=== PATIENT | male | born 1965 | race Caucasian/White ===

== ENCOUNTER 2020-12-21 10:49 | Emergency (ER) | payer OTHER, SELFPAY ==
[2020-12-21 11:00] VITALS: BP 184/101; PULSE 73; RESP 20; TEMP 37.1; O2SAT 98
--- NOTE | 2020-12-21 11:12 | ED.EYEPROB ---
HPI - Eye Problem General Chief complaint: Eye Problems Stated complaint: something in eye Time Seen by Provider: 12/21/20 11:12 History of Present Illness HPI Narrative: 55-year-old male patient is here with chief complaints of irritation to the left eye that started at 3:00 a.m. this morning. 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 Patient had similar episode to the right eye past Monday. He states that he has the photophobia but no loss of vision. He denies any drainage from the eye. He denies any pain to the eyes. Patient does wear protective glasses while working but does not wear vision correcting glasses. Patient offers no other symptoms regarding his current eye complaint and or any recent sore throat or history of environmental allergies. Related Data Allergies Allergy/AdvReac Type Severity Reaction Status Date / Time No Known Allergies Allergy Verified 12/21/20 11:13 Review of Systems Review of Systems: All systems reviewed & are unremarkable except as noted in HPI and below Exam Narrative: Exam Narrative: Patient is alert and appears in no acute distress. Vital signs are noted to be stable. HEENT ; pupils are equal and reactive bilaterally. There is no significant photophobia noted in the examination room. Patient does have marked conjunctival injection of the left eye and the right conjunctival sac seems to be normal. EOMs are not intact. Lid margins appeared normal. No foreign bodies noted in the eyes. Fluorescein stain is positive for corneal abrasion of the left cornea between 12 to 1 o'clock position. No other uptakes are noted. Anterior chamber is clear. Visual acuity is normal. The rest of the HEENT examination is unremarkable. No respiratory distress is noted. Heart tones are regular. Rest of physical examination is normal. Course Course Emergency Course: Patient is aware of the fluorescein uptake and discharge plans. Will put the patient on an antibiotic eyedrops and he is advised to avoid bright light and wear protective glasses while working. Discharge Plan Discharge Clinical Impression: Corneal abrasion Patient Disposition: Home, Self-Care Condition: Stable Instructions: Antibiotic Form, Corneal Abrasion (ED) Additional Instructions: Avoid bright lights and eye strain use the medication as prescribed. Flush your eyes with eye stream given here before instilling the antibiotic drops stay well hydrated. Take Tylenol or ibuprofen as needed for discomfort. Follow-up with your primary care physician in 2-3 days or sooner if worse. return here as needed. Prescriptions: New tobramycin 0.3 % drops 2 drp EACH EYE Q4H Qty: 5 RF: 0 Follow-up/Referrals: UNKNOWN,DOCTOR [Primary Care Provider] - Time of Disposition: 11:35
--- NOTE | 2020-12-21 11:25 | PC.NURSE ---
report to PATRICK Cook
[2020-12-21] MEDS: TETRACAINE HCL 0.5% OPHTH SOLN 4 ML BTL 1 DROP EACH EYE (11:28)
[2020-12-21] MEDS: FLUORESCEIN SOD 1 MG/STRIP EACH EYE (11:29)
[2020-12-21] MEDS: DACRIOSE EYE IRRIGATION 118 ML BOTTLE 10 ML EACH EYE (11:29)
[2020-12-21 11:37] VITALS: PULSE 71; RESP 15; TEMP 36.6; O2SAT 99
== END 2020-12-21 11:38 | disposition home or self-care (01) ==
PROVIDERS: Emergency Provider Emergency Medicine
DX: S05.02XA Injury of conjunctiva and corneal abrasion without foreign body, left eye, initial encounter (principal)
CPT/HCPCS: 99283; A9270

== ENCOUNTER 2024-12-23 10:34 | Outpatient (CLI) | payer BC, SELFPAY ==
--- NOTE | ~2024-12-23 | XR_ITS ---
EXAM/ PROCEDURE: XR lumbar spine 2-3V - 12/23/2024 10:45 CDT HISTORY: 59 years old Male with M54.9 - Dorsalgia, unspecified COMPARISON: None available TECHNIQUE: Three view(s) FINDINGS/ IMPRESSION: There are no fractures or dislocations.Intervertebral disc spaces are within normal limits. Reviewed, dictated and finalized at location A.
--- NOTE | ~2024-12-23 | XR_ITS ---
XR hip BI wo pelvis 12/23/2024 11:05 Indication: Hip pain Procedure: 2 views each hip Comparison: 10/26/2015 Findings: Mild bilateral symmetric osteoarthritis of the hips. No fracture, subluxation or dislocatio n. Sacral foramen are symmetric. Pelvic rings are unremarkable. No soft tissue abnormality. Impression: 1: Mild bilateral symmetric osteoarthritis of the hips. Reviewed, dictated and finalized at location A. Impression: 1: Mild bilateral symmetric osteoarthritis of the hips.
--- OUTSIDE RECORDS SUMMARY | 2024-12-23 10:46 | XMS_ITS | Encounter Summary ---
Author Organization [facility] - [facility] Address [address] [place] [address] Care Team Providers Care Host Name Role Phone Jian Worthington MD Primary Care Provider [phone] Encounter Details Date Type Department Care Team (Late st Contact Info) Description 04/22/2020 Community Orders [facility] EPICCARE LINK Jian Worthington MD [address] [place] [address] Social History Tobacco Use Types Packs/Day Years Used Date Smoking Tobacco: Never Assessed Sex and Gender Information Value Date Recorded Sex Assigned at Not on file Legal Sex Male 7:41 AM CDT Gender Identity Not on file Sexual Orientation Not on file documented as of this encounter Plan of Treatment Upcoming Encounters Date Type Department Care Team (Late st Contact Info) Description 01/21/2025 8:45 AM CDT Office Visit [facility] [place] [address] Ubaldo Marinelli MD [address] [address] documented as of this encounter Visit Diagnoses Diagnosis Malignant melanoma (CMS/HCC HHS/HCC)- Primary Melanoma of skin, site unspecified documented in this encounter Care Teams Host Relationship Specialty Start Date End Date Jian Worthington MD [address] [place] [address] PCP - General HEMATOLOGY/ONCOLOGY 03/22/19 documented as of this encounter
--- OUTSIDE RECORDS SUMMARY | 2024-12-23 10:46 | XMS_ITS | Clinical Summary ---
Author Organization [facility] Address [address] [place] [address] Care Team Providers Care Manager Business Name Role Phone Jian Worthington MD Primary Care Provider [phone] Encounters Date Type Department Care Team Description 12/17[facility]2024 [facility] [address] [place] [address] Ubaldo Marinelli MD Appointment Request 12/17/2024 Telephone [facility] [place] [facility] [address] [place] [address] Ubaldo Marinelli MD Concerns from Last 3 Months Social History Tobacco Use Types Packs/Day Years Used Date Smoking Tobacco: Never Assessed Sex and Gender Information Value Date Recorded Sex Assigned at Not on file Legal Sex Male 7:41 AM CDT Gender Identity Not on file Sexual Orientation Not on file Plan of Treatment Upcoming Encounters Date Type Department Care Team ([facility] st Contact Info) Description 01/21/2025 8:45 AM CDT Office Visit [facility] [place] [address] Ubaldo Marinelli MD [address] [facility] [address] [place], [place] [phone] Health Maintenance Due Date Last Done Comments Colorectal Cancer Screening Colonoscopy (10 Years) 1967 Annual Physical 08/08/1970 Hepatitis C 08/08/1985 DTaP, Tdap and Td Vaccines ( 1 - Tdap) 08/08/1986 Hepatitis B Vaccines (1 of 3 - 19+ 3-dose series) 08/08/1986 Pneumococcal Vaccine: 50+ Ye ars (1 of 1 - PCV) 08/08/2017 Zoster Vaccines (1 of 2) 08/08/2017 COVID-19 Vaccine (1 - 2023-2 5 season) 2024 Meningococcal B Vaccine Aged Out No l onger eligible based on patient's age to complete this topic Meningococcal Vaccine Aged Out No edgar debbie eligible based on patient's age to complete this topic RSV Immunizations Under 20 Months Aged Out No longer eligible based on patient's age to complete this topic Insurance [facility] Care Teams Manager Business Relationship Specialty Start Date End Date Jian Worthington MD [address] [place], [place] [address] PCP - General HEMATOLOGY/ONCOLOGY 03/22/19
--- OUTSIDE RECORDS SUMMARY | 2024-12-23 10:46 | XMS_ITS | Encounter Summary ---
Author Organization [facility] - [facility] Address [address] [place] [address] Care Team Providers Care Client Director Name Role Phone Jian Worthington MD Primary Care Provider [phone] Encounter Details Date Type Department Care Team (Late st Contact Info) Description 02/13/[address] [facility] EPICCARE LINK Jian Worthington MD [address] [place] [address] Social History Tobacco Use Types [...] Description 01/21/2025 8:45 AM CDT Office Visit [facility] [place] [address] Ubaldo Marinelli MD [address] [address] documented as of this encounter Visit Diagnoses Diagnosis Malignant melanoma (CMS/HCC [facility]/HCC)- Primary Melanoma of skin, site unspecified documented in this encounter Care Teams Client Director Relationship Specialty Start Date End Date Jian Worthington MD [address] [place] [address] PCP - General HEMATOLOGY/ONCOLOGY 03/22/19 documented as of this encounter
[2024-12-23 10:49] LABS: Hematocrit 32.2 % (40.0-54.0); Hemoglobin 10.2 g/dL (14.0-18.0); Immature Granulocyte Percent A 0.3 % (0.0-0.0); Lymphocytes Absolute Auto 1.04 K/mm3 (1.10-4.50); Mean Corpuscular HGB Conc 31.7 g/dL (32-36); Mean Corpuscular Hemoglobin 26.8 pg (27.0-31.0); Mean Corpuscular Volume 84.5 fL (78.0-102.0); Nucleated Red Blood Cells Absolute Auto 0.00 K/mm3 (0.00-0.00); Nucleated Red Blood Cells Perc 0.0 % (0-0.0); Platelet Count Result 419 K/mm3 (150-420); Red Blood Count 3.81 M/mm3 (4.70-6.10); White Blood Count 7.0 K/mm3 (4.8-10.8)
[2024-12-23 10:52] LABS: Add Urine Microscopic? YES; Appearance Urine Clear (Clear); Glucose Urine UA Negative (Negative); Leukocyte Esterase Ur Negative LEU/UL (Negative); Nitrate Urine Negative (Negative); Specific Grav Ur 1.010 (1.010-1.020)
[2024-12-23 11:12] LABS: Hemoglobin A1C 5.7 % (<5.7)
[2024-12-23 11:28] LABS: Alanine Aminotransferase 31 U/L (6-50); Albumin Level 3.3 g/dL (3.5-5.1); Alkaline Phosphatase 92 U/L (38-126); Anion Gap 7 mmol/L (4-12); Aspartate Amino Transferase 27 U/L (17-59); Bilirubin,Total 0.7 mg/dL (0.2-1.3); Blood Urea Nitrogen 10 mg/dL (9-20); Calcium 8.4 mg/dL (8.4-10.2); Carbon Dioxide 23 mmol/L (22-30); Chloride 104 mmol/L (98-107); Cholesterol 143 mg/dL (0-200); Estimated Glomerular Filt Rate > 60; Glucose 107 mg/dL (65-110); HDL Direct 30 mg/dL; Lipase 21 U/L (23-300); Osmolality Calculated 277 mOsm/kg (285-295); Potassium 4.2 mmol/L (3.4-5.0); Sodium 134 mmol/L (137-145); Total Protein 6.3 g/dL (6.3-8.2); Triglycerides 56 mg/dL (<150)
[2024-12-23 11:59] LABS: Thyroid Stimulating Hormone Reflex 0.471 uIU/mL (0.465-4.68)
[2024-12-23 12:54] LABS: Iron 20 ug/dL (49-181)
[2024-12-23 13:03] LABS: Percent Iron Saturation 9 % (20-50)
[2024-12-23 13:32] LABS: Ferritin 590.00 ng/mL (11.1-264)
== END 2024-12-23 10:35 | disposition home or self-care (01) ==
LOC: CHSLAB 10:36
PROVIDERS: PCP Nurse Practitioner Family; Visit Provider Nurse Practitioner Family
DX: Z00.00 Encounter for general adult medical examination without abnormal findings (principal); R53.82 Chronic fatigue, unspecified; M54.9 Dorsalgia, unspecified; M16.0 Bilateral primary osteoarthritis of hip
CPT/HCPCS: 36415; 72100; 73521; 80053; 80061; 81001; 82306; 82728; 83036; 83540; 83550; 83690; 84443; 85025

== ENCOUNTER 2025-01-10 13:55 | Outpatient (CLI) | payer BC, SELFPAY ==
--- NOTE | ~2025-01-10 | CT_ITS ---
CLINICAL INDICATION: Abnormal weight loss and abdominal pain COMPARISON: None. TECHNIQUE: Multiple contiguous axial images of the abdomen and pelvis were performed following the ad ministration of with 100 mL Omnipaque-350 intravenous contrast The dose-length product (DLP) was 290.52 mGy-cm. Automated exposure control and iterative reconstruction technique were employed. FINDINGS/OBSERVATIONS: Visualized lower thorax: Bibasilar atelectasis. The remainder of the lung bases are clear The heart is of normal size, without pericardial effusion. Liver: Innumerable irregular foci of decreased attenuation within the liver, for which metastatic disease is suspected. The liver is enlarged measuring 21 cm in longitudinal dimension. Gallbladder and biliary system: The gallbladder is decompressed, limiting its evaluation. Pancreas: The entirety of the pancreas is heterogeneous in enhancement. No ductal dilatation is appreciated. The most striking area of abnormal enhancement is within the tail of the pancreas, its borders are il l-defined, and measures approximately 3.1 x 4.8 x 2.6 cm Spleen: The spleen enhances homogeneously and is not enlarged. Kidneys: The bilateral kidneys enhance symmetrically without hydronephrosis or renal calculi. Adrenal glands: Unremarkable. Gastrointestinal tract: Colonic diverticulosis without surrounding inflammatory change. Appendix: The air-filled appendix is of normal caliber (axial series, images 117 through 127) Vasculature: The superior mesenteric artery is preserved at its origin. The celiac axis is preserved at its origin, and becomes diminutive within the common hepatic artery. The portal vein is patent but surrounded by abnormal lymphadenopathy. Lymph nodes: Innumerable morphologically suspicious and pathologically enlarged lymph nodes within the upper abdom en and within the lesser sac. The largest lymph node is within the hepatic lymph node station measuring 2 cm in short axis dimensio n. Pelvic structures: The bladder is distended, and otherwise unremarkable. The prostate gland is not enlarged, but contains bulky calcifications.. Body wall and musculoskeletal: Age-appropriate degenerative disease within the lower thoracic and lumbosacral spine. No lytic or blastic lesions identified. IMPRESSION: Findings within the upper abdomen for which a primary pancreatic malignancy is suspected, possibly located within the tail. Innumerable lesions within the liver, amenable to percutaneous biopsy. No pancreatic ductal dilatation is appreciated. Innumerable pathologically enlarged and morphologically suspicious lymph nodes within the upper abdom en. Despite the extensive (likely) metastatic disease and upper abdominal lymphadenopathy, the vasculatur e within the upper abdomen appears preserved. Reviewed, dictated and finalized at location A. IMPRESSION: Findings within the upper abdomen for which a primary pancreatic ma lignancy is suspected, possibly located within the tail. Innumerable lesions within the liver, amenable to percutaneous biopsy. No pancreatic ductal dilatation is appreciated. Innumerable pathologically enlarged and morphologically suspicious lymph nodes within the upper abdomen. Despite the extensive (likely) metastatic disease and upper abdominal lymphaden opathy, the vasculature within the upper abdomen appears preserved.
--- OUTSIDE RECORDS SUMMARY | 2025-01-10 14:00 | XMS_ITS | Clinical Summary ---
Author Organization [facility] Address [address] [place] [address] Care Team Providers Care Student Services Dean Name Role Phone Jian Worthington MD Primary Care Provider [phone] Encounters Date Type Department Care Team Description 12/17/2024 [facility]phone [facility] [address] [place] [address] Ubaldo Marinelli MD Appointment Request 12/17/2024 Telephone [facility] [address] [place] [address] Ubaldo Marinelli MD Concerns from Last 3 Months Social History Tobacco Use Types Packs/Day Years Used Date Smoking Tobacco: Never Assessed Sex and Gender Information Value Date Recorded Sex Assigned at Not on file Legal Sex Male 7:41 AM CDT Gender Identity Not on file Sexual Orientation Not on file Plan of Treatment Upcoming Encounters Date Type Department Care Team ([facility] st Contact Info) Description 01/21/2025 8:45 AM CDT Office Visit [facility] [place] [address] Ubaldo Marinelli MD [address] [facility] [address] [place], [place] [address] Health Maintenance Due Date Last Done Comments [...] Insurance [facility] Care Teams Student Services Dean Relationship Specialty Start Date End Date Jian Worthington MD [address] [place], [place] [address] PCP - General HEMATOLOGY/ONCOLOGY 03/22/19
--- OUTSIDE RECORDS SUMMARY | 2025-01-10 14:00 | XMS_ITS | Encounter Summary ---
Author Organization [facility] Address [address] [place] [address] Care Team Providers Care Bath Mixer Name Role Phone Jian Worthington MD Primary Care Provider [phone] Encounter Details Date Type Department Care Team (Late st Contact Info) Description 04/22/2020 Community Orders [facility] EPICCARE LINK Jian Worthington MD [address] [place] [address] Social History Tobacco Use Types [...] Description 01/21/2025 8:45 AM CDT Office Visit [facility] [place] [address] Ubaldo Marinelli MD [address] [address] documented as of this encounter Visit Diagnoses Diagnosis Malignant melanoma (CMS/HCC HHS/HCC)- Primary Melanoma of skin, site unspecified documented in this encounter Care Teams Bath Mixer Relationship Specialty Start Date End Date Jian Worthington MD [address] [place] [address] PCP - General HEMATOLOGY/ONCOLOGY 03/22/19 documented as of this encounter
--- OUTSIDE RECORDS SUMMARY | 2025-01-10 14:00 | XMS_ITS | Encounter Summary ---
Author Organization [facility] Address [address] [place] [address] Care Team Providers Care Cone Winder Name Role Phone Jian Worthington MD Primary Care Provider [phone] Encounter Details Date Type Department Care Team (Late st Contact Info) Description 02/13/2019 Community Orders [facility] EPICCARE LINK Jian Worthington MD [address] [place] [address] Social History Tobacco Use Types [...] Description 01/21/2025 8:45 AM CDT Office Visit [facility] [place] [address] Ubaldo Marinelli MD [address] [address] documented as of this encounter Visit Diagnoses Diagnosis Malignant melanoma (CMS/HCC HHS/HCC)- Primary Melanoma of skin, site unspecified documented in this encounter Care Teams Cone Winder Relationship Specialty Start Date End Date Jian Worthington MD [address] [place] [address] PCP - General HEMATOLOGY/ONCOLOGY 03/22/19 documented as of this encounter
[2025-01-10 14:26] LABS: Hematocrit 32.6 % (40.0-54.0); Hemoglobin 9.8 g/dL (14.0-18.0); Immature Granulocyte Percent A 0.6 % (0.0-0.0); Immature Platelet Fraction Pct 1.6 % (1.0-7.0); Lymphocytes Absolute Auto 0.74 K/mm3 (1.10-4.50); Mean Corpuscular HGB Conc 30.1 g/dL (32-36); Mean Corpuscular Hemoglobin 24.9 pg (27.0-31.0); Mean Corpuscular Volume 83.0 fL (78.0-102.0); Nucleated Red Blood Cells Absolute Auto 0.00 K/mm3 (0.00-0.00); Nucleated Red Blood Cells Perc 0.0 % (0-0.0); Platelet Count Result 613 K/mm3 (150-420); Red Blood Count 3.93 M/mm3 (4.70-6.10); White Blood Count 8.2 K/mm3 (4.8-10.8)
[2025-01-10 14:41] VITALS: BP 132/79; PULSE 88; RESP 16; TEMP 36.4; O2SAT 97; BMI 23.4
[2025-01-10 14:41] LABS: Alanine Aminotransferase 46 U/L (6-50); Albumin Level 3.8 g/dL (3.5-5.1); Alkaline Phosphatase 136 U/L (38-126); Anion Gap 8 mmol/L (4-12); Aspartate Amino Transferase 32 U/L (17-59); Bilirubin,Total 0.8 mg/dL (0.2-1.3); Blood Urea Nitrogen 9 mg/dL (9-20); CRP > 9.0 mg/dL (<1.0); Calcium 9.2 mg/dL (8.4-10.2); Carbon Dioxide 32 mmol/L (22-30); Chloride 97 mmol/L (98-107); Estimated Glomerular Filt Rate > 60; Glucose 117 mg/dL (65-110); Lipase 20 U/L (23-300); Osmolality Calculated 283 mOsm/kg (285-295); Potassium 3.5 mmol/L (3.4-5.0); Sodium 137 mmol/L (137-145); Total Protein 7.9 g/dL (6.3-8.2)
[2025-01-10] MEDS: SODIUM CHLORIDE 0.9% IV 1,000 ML 500 ML IVPB (15:10)
--- NOTE | 2025-01-10 18:33 | PC.NURSE ---
01/10/2025 1720 Patient's IV fluids completed. Patient tolerated well. Patient transferred into wheel chair and taken to radiology for a CT of abd/pelvis. IV intact for use with CT. quality control lab techJaden, to remove after scan is completed and will discharge to home after.
[2025-01-10 19:11] LABS: Troponin I < 0.012 ng/mL (0.000-0.034)
== END 2025-01-10 13:56 | disposition home or self-care (01) ==
LOC: CHSLAB 13:58 → CHSTREATRM 14:12
PROVIDERS: PCP Nurse Practitioner Family; Visit Provider Nurse Practitioner Family
DX: E86.0 Dehydration (principal); R63.4 Abnormal weight loss; R10.9 Unspecified abdominal pain
CPT/HCPCS: 36415; 74177; 80053; 83690; 84484; 85025; 85055; 86140; 87040; 96360; 96361; J7030; Q9967

== ENCOUNTER 2025-01-10 20:34 | Emergency (ER) | payer BC, SELFPAY ==
[2025-01-10 20:36] VITALS: BP 116/80; PULSE 105; RESP 16; TEMP 37.2; O2SAT 99
--- OUTSIDE RECORDS SUMMARY | 2025-01-10 20:37 | XMS_ITS | Encounter Summary ---
Author Organization [facility] Address [address] [place] [address] Care Team Providers Care Mold Maker Apprentice Name Role Phone Jian Worthington MD Primary Care Provider [phone] Encounter Details Date Type Department Care Team (Late st Contact Info) Description 04/22/2020 Community Orders [facility] EPICCARE LINK Jian Worthington MD [address] [place] [address] Social History Tobacco Use Types [...] Description 01/21/2025 8:45 AM CDT Office Visit [facility] [place] [address] Ubaldo Marinelli MD [address] [address] documented as of this encounter Visit Diagnoses Diagnosis Malignant melanoma (CMS/HCC HHS/HCC)- Primary Melanoma of skin, site unspecified documented in this encounter Care Teams Mold Maker Apprentice Relationship Specialty Start Date End Date Jian Worthington MD [address] [place] [address] PCP - General HEMATOLOGY/ONCOLOGY 03/22/19 documented as of this encounter
--- OUTSIDE RECORDS SUMMARY | 2025-01-10 20:37 | XMS_ITS | Encounter Summary ---
Author Organization [facility] Address [address] [place] [address] Care Team Providers Care Sales Associate Key Holder Name Role Phone Jian Worthington MD Primary Care Provider [phone] Encounter Details Date Type Department Care Team (Late Contact Info) Description 01/10/2025 Orders Only [facility] [address] [place] [address] Ubaldo Marinelli MD [address] [place] [address] Social History Tobacco Use Types Packs/Day Years Used Date Smoking Tobacco: Never Assessed Sex and Gender Information Value Date Recorded Sex Assigned at Not on file Legal Sex Male 7:41 AM CDT Gender Identity Not on file Sexual Orientation Not on file documented as of this encounter Plan of Treatment Upcoming Encounters Date Type Department Care Team (Late Contact Info) Description 01/21/2025 8:45 AM CDT Office Visit [facility] [place] [address] Ubaldo Marinelli MD [address] [address] Scheduled Orders Name Type Priority Associated Diagnoses Orde r Schedule ECG 12 lead (HOSPITAL PERFORMED ONLY) EKG-NonRad Routine Leg numbness Encounter to establish care with new doctor Expected: 01/21/2025, Expires: 07/13/2026 documented as of this encounter Visit Diagnoses Diagnosis Encounter to establish care with new doctor- Primary Other reasons for seeking consultation Leg numbness Disturbance of skin sensation documented in this encounter Care Teams Sales Associate Key Holder Relationship Specialty Start Date End Date Jian Worthington MD [address] [place] [address] PCP - General HEMATOLOGY/ONCOLOGY 03/22/19 documented as of this encounter
--- OUTSIDE RECORDS SUMMARY | 2025-01-10 20:37 | XMS_ITS | Clinical Summary ---
Author Organization [facility] Address [address] [place] [address] Care Team Providers Care Corrective Therapy Aide Teacher Name Role Phone Jian Worthington MD Primary Care Provider [phone] Encounters Date Type Department Care Team Description 01/10/2025 Orders Only [facility] [address] [place] [address] Ubaldo Marinelli MD 01/10/2025 Orders Only [facility] [address] [place] [address] Ubaldo Marinelli MD 12/17/2024 Telephone [facility] [address] [place] [address] Ubaldo Marinelli MD Appointment Request 12/17/2024 Telephone [facility] [address] [place] [address] Ubaldo Marinelli MD Concerns from Last 3 [...] Description 01/21/2025 8:45 AM CDT Office Visit [facility] [place] [address] Ubaldo Marinelli MD [address] [facility] [address] [place] [address] Health Maintenance Due Date Last Done Comments [...] patient's age to complete this topic Insurance [facility] Care Teams Corrective Therapy Aide Teacher Relationship Specialty Start Date End Date Jian Worthington MD [address] [place] [address] PCP - General HEMATOLOGY/ONCOLOGY 03/22/19
--- OUTSIDE RECORDS SUMMARY | 2025-01-10 20:37 | XMS_ITS | Encounter Summary ---
Author Organization [facility] Address [address] [place] [address] Care Team Providers Care Pharmacy Care Coordinator Name Role Phone Jian Worthington MD Primary Care Provider [phone] Encounter Details Date Type Department Care Team ([facility] Contact Info) Description 01/10/2025 Orders Only [facility] [address] [place] [address] Ubaldo Marinelli MD [address] [place] [address] Social History Tobacco Use Types Packs/Day Years [...] Description 01/21/2025 8:45 AM CDT Office Visit [facility] [place] [address] Ubaldo Marinelli MD [address] [address] Scheduled Orders Name Type Priority Associated Diagnoses Orde r Schedule ELECTROCARDIOGRAM (NON MIDMARK ACQUIRED) EKG-NonRad Routine Encounter to establish care Leg numbness Expected: 01/21/2025, Expires: 07/13/2026 documented as of this encounter Visit Diagnoses Diagnosis Encounter to establish care- Primary Other reasons for seeking consultation Leg numbness Disturbance of skin sensation documented in this encounter Care Teams Pharmacy Care Coordinator Relationship Specialty Start Date End Date Jian Worthington MD [address] [place] [address] PCP - General HEMATOLOGY/ONCOLOGY 03/22/19 documented as of this encounter
--- OUTSIDE RECORDS SUMMARY | 2025-01-10 20:37 | XMS_ITS | Encounter Summary ---
Author Organization [facility] Address [address] [place] [address] Care Team Providers Care Report Analyst Name Role Phone Jian Worthington MD Primary Care Provider [phone] Encounter Details Date Type Department Care Team (Late st Contact Info) Description 02/13/[address] [facility] EPICCARE LINK Jian Worthington MD [address] [place] [address] Social History Tobacco Use Types [...] Description 01/21/2025 8:45 AM CDT Office Visit [facility] [place] [address] Ubaldo Marinelli MD [address] [address] documented as of this encounter Visit Diagnoses Diagnosis Malignant melanoma (CMS/HCC HHS/HCC)- Primary Melanoma of skin, site unspecified documented in this encounter Care Teams Report Analyst Relationship Specialty Start Date End Date Jian Worthington MD [address] [place] [address] PCP - General HEMATOLOGY/ONCOLOGY 03/22/19 documented as of this encounter
[2025-01-10 22:27] LABS: Hematocrit 28.0 % (42.0-52.0); Hemoglobin 8.5 g/dL (14.0-18.0); Immature Granulocyte Percent A 0.4 % (0-0.5); Lymphocytes Absolute Auto 1.24 K/mm3 (0.9-3.2); Mean Corpuscular HGB Conc 30.4 g/dl (32-36); Mean Corpuscular Hemoglobin 24.8 pg (26-34); Mean Corpuscular Volume 81.6 fl (80-100); Nucleated Red Blood Cells Absolute Auto 0.000 K/mm3 (0.0-0.012); Nucleated Red Blood Cells Perc 0.0 % (0.0-0.2); Platelet Count Result 517 k/mm3 (150-375); Red Blood Count 3.43 M/mm3 (4.6-6.20); White Blood Count 10.2 K/mm3 (4.5-10.0)
[2025-01-10 22:36] LABS: Alanine Aminotransferase 39 U/L (6-50); Albumin Level 3.2 g/dL (3.5-5.1); Alkaline Phosphatase 133 U/L (38-126); Anion Gap 9 mmol/L (4-12); Aspartate Amino Transferase 28 U/L (17-59); Bilirubin,Total 0.7 mg/dL (0.2-1.3); Blood Urea Nitrogen 6 mg/dL (9-20); Calcium 8.6 mg/dL (8.4-10.2); Carbon Dioxide 26 mmol/L (22-30); Chloride 96 mmol/L (98-107); Estimated CRCL calculation 113 ml/min; Estimated Glomerular Filt Rate > 60; Glucose 119 mg/dL (65-110); Lipase 16 U/L (23-300); Potassium 3.5 mmol/L (3.4-5.0); Sodium 131 mmol/L (137-145); Total Protein 7.0 g/dL (6.3-8.2)
--- OUTSIDE RECORDS SUMMARY | 2025-01-10 22:57 | XMS_ITS | Clinical Summary ---
Author Organization [facility] Address [address] [place] [address] Care Team Providers Care Guest Service Team Leader Name Role Phone Jian Worthington MD Primary Care Provider [phone] Encounters Date Type Department Care Team Description 01/10/2025 Orders Only [facility] [address] [place] [address] Ubaldo Marinelli MD 01/10/2025 Orders Only [facility] [address] [place] [address] Ubaldo Marinelli MD 12/17/2024 Telephone [facility] [address] [place] [address] Ubaldo Marinelli MD Appointment Request 12/17/2024 Telephone [facility] [address] [place] [address] Ubaldo Marinelli MD Concerns from Last 3 [...] Description 01/21/2025 8:45 AM CDT Office Visit [facility] [place] [address] Ubaldo Marinelli MD [address] [facility] [address] [place] [address] Health Maintenance Due Date Last Done Comments [...] patient's age to complete this topic Insurance [facility] Care Teams Guest Service Team Leader Relationship Specialty Start Date End Date Jian Worthington MD [address] [place] [address] PCP - General HEMATOLOGY/ONCOLOGY 03/22/19
--- OUTSIDE RECORDS SUMMARY | 2025-01-10 22:57 | XMS_ITS | Encounter Summary ---
Author Organization [facility] Address [address] [place] [address] Care Team Providers Care Software Design Manager Name Role Phone Jian Worthington MD Primary Care Provider [phone] Encounter Details Date Type Department Care Team ([facility] Contact Info) Description 01/10/2025 Orders Only [facility] [address] [place] [address] Ubaldo Marinelli MD [address] [place] [address] Social History Tobacco Use Types Packs/Day Years [...] Description 01/21/2025 8:45 AM CDT Office Visit [facility] [place] [address] Ubaldo Marinelli MD [address] [address] Scheduled Orders Name Type Priority Associated Diagnoses Orde r Schedule ELECTROCARDIOGRAM (NON MIDMARK ACQUIRED) EKG-NonRad Routine Encounter to establish care Leg numbness Expected: 01/21/2025, Expires: 07/13/2026 documented as of this encounter Visit Diagnoses Diagnosis Encounter to establish care- Primary Other reasons for seeking consultation Leg numbness Disturbance of skin sensation documented in this encounter Care Teams Software Design Manager Relationship Specialty Start Date End Date Jian Worthington MD [address] [place] [address] PCP - General HEMATOLOGY/ONCOLOGY 03/22/19 documented as of this encounter
--- OUTSIDE RECORDS SUMMARY | 2025-01-10 22:57 | XMS_ITS | Encounter Summary ---
Author Organization [facility] Address [address] [place] [address] Care Team Providers Care Hot Air Furnace Installer Repairer Name Role Phone Jian Worthington MD Primary Care Provider [phone] Encounter Details Date Type Department Care Team (Late Contact Info) Description 01/10/2025 Orders Only [facility] [address] [place] [address] Ubaldo Marinelli MD [address] [place] [address] Social History Tobacco Use Types Packs/Day Years [...] Description 01/21/2025 8:45 AM CDT Office Visit [facility] [place] [address] Ubaldo Marinelli MD [address] [address] Scheduled Orders Name Type Priority Associated Diagnoses [...] sensation documented in this encounter Care Teams Hot Air Furnace Installer Repairer Relationship Specialty Start Date End Date Jian Worthington MD [address] [place] [address] PCP - General HEMATOLOGY/ONCOLOGY 03/22/19 documented as of this encounter
--- OUTSIDE RECORDS SUMMARY | 2025-01-10 22:57 | XMS_ITS | Encounter Summary ---
Author Organization [facility] Address [address] [place] [address] Care Team Providers Care Neonatal Specialist Name Role Phone Jian Worthington MD Primary Care Provider [phone] Encounter Details Date Type Department Care Team (Late st Contact Info) Description 02/13/2019 Community Orders [facility] EPICCARE LINK Jian Worthington MD [address] [place] [address] Social History Tobacco Use Types [...] Description 01/21/2025 8:45 AM CDT Office Visit [facility] [place] [address] Ubaldo Marinelli MD [address] [address] documented as of this encounter Visit Diagnoses Diagnosis Malignant melanoma (CMS/HCC HHS/HCC)- Primary Melanoma of skin, site unspecified documented in this encounter Care Teams Neonatal Specialist Relationship Specialty Start Date End Date Jian Worthington MD [address] [place] [address] PCP - General HEMATOLOGY/ONCOLOGY 03/22/19 documented as of this encounter
--- OUTSIDE RECORDS SUMMARY | 2025-01-10 22:57 | XMS_ITS | Encounter Summary ---
Author Organization [facility] - [facility] Address [address] [place] [address] Care Team Providers Care Soil Science Teacher Name Role Phone Jian Worthington MD Primary Care Provider [phone] Encounter Details Date Type Department Care Team (Late st Contact Info) Description 04/22/2020 Community Orders [facility] Jian Worthington MD [address] [place] [address] Social History Tobacco Use Types [...] Description 01/21/2025 8:45 AM CDT Office Visit [facility] [place] [id number] Ubaldo Marinelli MD [address] [address] documented as of this encounter Visit Diagnoses Diagnosis Malignant melanoma (CMS/HCC HHS/HCC)- Primary Melanoma of skin, site unspecified documented in this encounter Care Teams Soil Science Teacher Relationship Specialty Start Date End Date Jian Worthington MD [address] [place] [address] PCP - General HEMATOLOGY/ONCOLOGY 03/22/19 documented as of this encounter
[2025-01-10 23:20] LABS: Add Urine Microscopic? NO; Appearance Urine Clear (Clear); Glucose Urine UA Negative (Negative); Leukocyte Esterase Ur Negative LEU/UL (Negative); Nitrate Urine Negative (Negative); Specific Grav Ur 1.008 (1.001-1.035)
[2025-01-11] VITALS (64 sets, daily range): BP systolic 111–144; BP diastolic 63–79; PULSE 75–117; RESP 13–30; O2SAT 91–100
--- NOTE | 2025-01-11 00:10 | ECG_ITS ---
Test Date: 2025-01-11 00:22:09 Measurements Intervals [place] Rate: 93 P: 52 GA: 170 QRS: -20 QRSD: 102 T: 27 QT: 356 QTc: 443 Interpretive Statements SINUS RHYTHM INCOMPLETE RIGHT BUNDLE BRANCH BLOCK LEFT VENTRICULAR HYPERTROPHY CANNOT R/O SEPTAL INFARCT, AGE INDETERMINATE ABNORMAL ECG No previous ECG available for comparison Electronically Signed On 01-11-2025 07:27:10 CDT by Adalberto Alvares D.O.
--- NOTE | 2025-01-11 00:10 | ED_ITS ---
HPI - Abdominal Pain General Chief Complaint: Abdominal Pain <Marielos Maya APRN - Last Filed: 01/11/25 03:36> Stated Complaint: abdominal pain, loss weight <Marielos Maya APRN - Last Filed: 01/11/25 03:36> Time Seen by Provider: 01/10/25 22:16 <Marielos Maya APRN - Last Filed: 01/11/25 03:36> History of Present Illness HPI narrative: Patient is a 59-year-old male who presents to the ER with abdominal pain and back pain. He reports he has been experiencing significant weight loss, night sweats, decreased p.o. intake, back pain, abdominal pain and GERD for the past few months. Patient reports his primary care provider ordered a abdominal/pelvis CT scan which showed a pancreatic and liver mass. He reports his primary care provider advised him to come to [place] for further evaluation. Patient endorses a history of melanoma years ago but reports he was cleared by his harnessmaker. He reports he has seen a doctor in years.Patient reports he had a small bowel movement earlier today. He endorses intermittent burning and urgency with urination. Patient denies any chest pain, shortness of breath, lower extremity swelling. <Marielos Maya APRN - Last Filed: 01/11/25 03:36> Related Data Home Medications: Home Medications ?Medication ?Instructions ?Recorded ?Confirmed ?Last Taken ?Type docusate sodium 100 mg capsule 100 mg PO DAILY 01/10/25 01/10/25 Unknown History (Col-Rite) <Marielos Maya APRN - Last Filed: 01/11/25 03:36> Allergies/Adverse Reactions: Allergies Allergy/AdvReac Type Severity Reaction Status Date / Time No Known Allergies Allergy Verified 01/10/25 20:40 <Marielos Maya APRN - Last Filed: 01/11/25 03:36> Review of Systems 2 Review of Systems: All systems reviewed & are unremarkable except as noted in HPI and below <Marielos Maya APRN - Last Filed: 01/11/25 03:36> PMFSH Past Medical History Medical History: Medical History Melanoma removal of melanoma on back 2016. Lymph nodes tested and negative <Marielos Maya APRN - Last Filed: 01/11/25 03:36> Social History Social History: Social History Smoking packs per day: 1 Smoking cigarettes per day: 20.0 Years smoked: 20 Smoking pack-years: 20.00 Smoking status: Former smoker Additional smoking assessment comments: Quit 2022. Alcohol intake: current Alcohol use details: rarely drinks per patient Substance use: never Substance use type: does not use <Marielos Maya APRN - Last Filed: 01/11/25 03:36> Exam 2 Narrative: GENERAL: Ill appearing, well-nourished, non-toxic, in no acute distress. HEAD: Normocephalic, atraumatic. NECK: Supple. No adenopathy, no masses. RESPIRATORY: Airway patent, respirations nonlabored. Clear to auscultation bilaterally, no rales, rhonchi, wheezing. CARDIOVASCULAR: Regular rate and rhythm without murmurs, rubs, or gallops. Peripheral pulses 2+ and equal bilaterally. ABDOMINAL: Soft, + tenderness LUQ and LLQ, nondistended, + hepatosplenomegaly. Normoactive BS. MUSCULOSKELETAL: Moves all extremities. Strength/ROM intact without gross deformities. SKIN: Warm, dry, normal color. No rashes. NEURO: A&O X3. Speech clear. Cranial nerves II-XII intact. No ataxic movements. PSYCHIATRIC: Appropriate mood and affect. Normal interaction. <Marielos Maya APRN - Last Filed: 01/11/25 03:36> Course Vital Signs Vital signs: Vital Signs Temperature 37.2 C 01/10/25 20:36 Pulse Rate 105 H 01/10/25 20:36 Respiratory Rate 16 01/10/25 20:36 Blood Pressure 116/80 01/10/25 20:36 Pulse Oximetry 99 01/10/25 20:36 Oxygen Delivery Room Air 01/10/25 20:36 Temperature 37.2 C 01/10/25 20:36 Pulse Rate 86 01/11/25 06:15 Respiratory Rate 20 01/11/25 06:15 Blood Pressure 118/63 01/11/25 06:01 Pulse Oximetry 98 01/11/25 06:15 Oxygen Delivery Room Air 01/10/25 20:36 <Marielos Maya APRN - Last Filed: 01/11/25 03:36> Vital Signs Temperature 37.2 C 01/10/25 20:36 Pulse Rate 105 H 01/10/25 20:36 Respiratory Rate 16 01/10/25 20:36 Blood Pressure 116/80 01/10/25 20:36 Pulse Oximetry 99 01/10/25 20:36 Oxygen Delivery Room Air 01/10/25 20:36 Temperature 37.2 C 01/10/25 20:36 Pulse Rate 86 01/11/25 06:15 Respiratory Rate 20 01/11/25 06:15 Blood Pressure 118/63 01/11/25 06:01 Pulse Oximetry 98 01/11/25 06:15 Oxygen Delivery Room Air 01/10/25 20:36 <El Morgan MD - Last Filed: 01/11/25 06:45> MDM - Abdominal Pain MDM Narrative Medical decision making narrative: Patient is a 59-year-old male who presents to the ER with abdominal pain and back pain. He reports he has been experiencing significant weight loss, night sweats, decreased p.o. intake, back pain, abdominal pain and GERD for the past few months. Patient reports his primary care provider ordered a abdominal/pelvis CT scan which showed a pancreatic and liver mass. He reports his primary care provider advised him to come to [place] for further evaluation. Patient endorses a history of melanoma years ago but reports he was cleared by his harnessmaker. He reports he has seen a doctor in years.Patient reports he had a small bowel movement earlier today. He endorses intermittent burning and urgency with urination. Patient denies any chest pain, shortness of breath, lower extremity swelling. Labs Ordered: CBC, CMP, PTT, INR, CRP, lactic acid, blood cultures, ESR, lipase Imaging Ordered: CT abdomen pelvis (outside facility) Medications Ordered: 0.5 mg IV Dilaudid, 2.7 L normal saline IV bolus, vancomycin IV, cefepime IV Results: Pt's CT scan from [facility] indicates Findings within the upper abdomen for which a primary pancreatic malignancy is suspected, possibly located within the tail. Innumerable lesions within the liver, amenable to percutaneous biopsy. No pancreatic ductal dilatation is appreciated. Innumerable pathologically enlarged and morphologically suspicious lymph nodes within the upper abdomen. Despite the extensive (likely) metastatic disease and upper abdominal lymphadenopathy, the vasculature within the upper abdomen appears preserved. Diagnosis: Pancreatic cancer with liver metastasis, anemia Consults: 99- Spoke with gastroenterology specialist at [facility], Dr. Lorenzo, who reports pt should be admitted to their facility for further work-up and evaluation. He recommends pt continue on IV antibiotics. 010- [facility] hospitalist, Dr. Olivarez, was in agreement with plan for pt to be admitted to [facility]. Results of imaging and lab work shared with patient and his family. It was advised patient be admitted to [facility] for further evaluation and treatment. Patient and his family verbalized understanding and are in agreement with plan. Pt will have CBCs drawn every four hours to trend his anemia. He will receive continue IV fluids, Dilaudid PRN, and Zofran PRN. Pt will have a BMP drawn daily while he is here. 0345- Pt care signed out to Dr. Morgan. <Marielos Maya, CLEARANCE DIVER - Last Filed: 01/11/25 03:36> Patient is a 59-year-old male who presents to the ER with abdominal pain and back pain. He reports he has been experiencing significant weight loss, night sweats, decreased p.o. intake, back pain, abdominal pain and GERD for the past few months. Patient reports his primary care provider ordered a abdominal/pelvis CT scan which showed a pancreatic and liver mass. He reports his primary care provider advised him to come to [place] for further evaluation. Patient endorses a history of melanoma years ago but reports he was cleared by his harnessmaker. He reports he has seen a doctor in years.Patient reports he had a small bowel movement earlier today. He endorses intermittent burning and urgency with urination. Patient denies any chest pain, shortness of breath, lower extremity swelling. Labs Ordered: CBC, CMP, PTT, INR, CRP, lactic acid, blood cultures, ESR, lipase Imaging Ordered: CT abdomen pelvis (outside facility) Medications Ordered: 0.5 mg IV Dilaudid, 2.7 L normal saline IV bolus, vancomycin IV, cefepime IV Results: Pt's CT scan from [facility] indicates Findings within the upper abdomen for which a primary pancreatic malignancy is suspected, possibly located within the tail. Innumerable lesions within the liver, amenable to percutaneous biopsy. No pancreatic ductal dilatation is appreciated. Innumerable pathologically enlarged and morphologically suspicious lymph nodes within the upper abdomen. Despite the extensive (likely) metastatic disease and upper abdominal lymphadenopathy, the vasculature within the upper abdomen appears preserved. Diagnosis: Pancreatic cancer with liver metastasis, anemia Consults: 99- Spoke with gastroenterology specialist at [facility], Dr. Lorenzo, who reports pt should be admitted to their facility for further work-up and evaluation. He recommends pt continue on IV antibiotics. 010- [facility] hospitalist, Dr. Olivarez, was in agreement with plan for pt to be admitted to [facility] hospital. Results of imaging and lab work shared with patient and his family. It was advised patient be admitted to [facility] hospital for further evaluation and treatment. Patient and his family verbalized understanding and are in agreement with plan. Pt will have CBCs drawn every four hours to trend his anemia. He will receive continue IV fluids, Dilaudid PRN, and Zofran PRN. Pt will have a BMP drawn daily while he is here. 0345- Pt care signed out to Dr. Morgan. 0700-[facility]URAG to morning Dr. Saleh. CLAIRE. Pending bed at [facility]. <El Morgan MD - Last Filed: 01/11/25 06:45> Differential Diagnosis Differential diagnosis: Likely abdominal pain, calculus of kidney, diverticulitis, pancreatitis, small bowel obstruction and other (pancreatic mass, liver mass, sepsis) <Marielos Maya APRN - Last Filed: 01/11/25 03:36> Lab Data Result diagrams: 01/11/25 03:53 01/11/25 03:53 <Marielos Maya APRN - Last Filed: 01/11/25 03:36> Labs: Lab Results 01/10/25 01/10/25 01/11/25 Range/Units 22:20 23:12 00:38 WBC 10.2 H (4.5-10.0) K/mm3 RBC 3.43 L (4.6-6.20) M/mm3 Hgb 8.5 L (14.0-18.0) g/dL Hct 28.0 L (42.0-52.0) % MCV 81.6 (80-100) fl MCH 24.8 L (26-34) pg MCHC 30.4 L (32-36) g/dl RDW 13.9 (11.5-14.5) % Plt Count 517 H (150-375) k/mm3 MPV 9.5 (7.4-10.4) fl Immature Gran % (Auto) 0.4 (0-0.5) % Neut % (Auto) 73.4 H (45.5-73.1) % Lymph % (Auto) 12.1 L (18.3-44.2) % [place] % (Auto) 10.1 H (2.6-8.5) % Eos % (Auto) 3.6 (0-4.4) % Baso % (Auto) 0.4 (0.2-1.2) % Lymph # (Auto) 1.24 (0.9-3.2) K/mm3 [place] # (Auto) 1.0 H (0.1-0.6) K/mm3 Eos # (Auto) 0.4 H (0-0.3) K/mm3 Baso # (Auto) 0.0 (0.0-0.1) K/mm3 Abs Immat Gran (auto) 0.04 H (0.00-0.031) K/mm3 Absolute Neuts (auto) 7.5 H (1.3-6.7) K/mm3 Absolute Nucleated RBC 0.000 (0.0-0.012) K/mm3 Band Neutrophils % Nucleated RBC % 0.0 (0.0-0.2) % Platelet Estimate (Adequate) Hypochromasia Schistocytes ESR > 140 H (0-20) mm/hr PT 16.8 H (11.1-14.7) Seconds INR 1.4 APTT 44.3 H (22.3-36.8) Seconds Sodium 131 L (137-145) mmol/L Potassium 3.5 (3.4-5.0) mmol/L Chloride 96 L (98-107) mmol/L Carbon Dioxide 26 (22-30) mmol/L Anion Gap 9 (4-12) mmol/L BUN 6 L (9-20) mg/dL Creatinine 0.57 L (0.7-1.3) mg/dL Estim Creat Clear Calc 113 ml/min Estimated GFR > 60 (59 - ) Glucose 119 H (65-110) mg/dL Lactic Acid 0.8 (0.7-2.0) mmol/L Calcium 8.6 (8.4-10.2) mg/dL Total Bilirubin 0.7 (0.2-1.3) mg/dL AST 28 (17-59) U/L ALT 39 (6-50) U/L Alkaline Phosphatase 133 H (38-126) U/L C-Reactive Protein 17.8 H (<1.0) mg/dL Total Protein 7.0 (6.3-8.2) g/dL Albumin 3.2 L (3.5-5.1) g/dL Lipase 16 L (23-300) U/L Urine Color Yellow (Yellow) Urine Appearance Clear (Clear) Urine pH 7.5 (5.0-9.0) Ur Specific [place] 1.008 (1.001-1.035) Urine Protein Negative (Negative) mg/dL Urine Glucose (UA) Negative (Negative) mg/dL Urine Ketones Negative (Negative) mg/dL Ur Blood (Man) Negative (Negative) Urine Nitrate Negative (Negative) Urine Bilirubin Negative (Negative) Urine Urobilinogen 1.0 (<2.0) mg/dL Leukocyte Esterase Rfl Negative (Negative) BRAXTON/UL 01/11/25 Range/Units 03:53 WBC 9.2 (4.5-10.0) K/mm3 RBC 3.53 L (4.6-6.20) M/mm3 Hgb 8.8 L (14.0-18.0) g/dL Hct 29.5 L (42.0-52.0) % MCV 83.6 (80-100) fl MCH 24.9 L (26-34) pg MCHC 29.8 L (32-36) g/dl RDW 13.9 (11.5-14.5) % Plt Count 482 H (150-375) k/mm3 MPV 9.7 (7.4-10.4) fl Immature Gran % (Auto) 0.4 (0-0.5) % Neut % (Auto) 73.1 (45.5-73.1) % Lymph % (Auto) 12.3 L (18.3-44.2) % [place] % (Auto) 9.8 H (2.6-8.5) % Eos % (Auto) 3.9 (0-4.4) % Baso % (Auto) 0.5 (0.2-1.2) % Lymph # (Auto) 1.13 (0.9-3.2) K/mm3 [place] # (Auto) 0.9 H (0.1-0.6) K/mm3 Eos # (Auto) 0.4 H (0-0.3) K/mm3 Baso # (Auto) 0.1 (0.0-0.1) K/mm3 Abs Immat Gran (auto) 0.04 H (0.00-0.031) K/mm3 Absolute Neuts (auto) 6.7 (1.3-6.7) K/mm3 Absolute Nucleated RBC 0.000 (0.0-0.012) K/mm3 Band Neutrophils % Not Reportable Nucleated RBC % 0.0 (0.0-0.2) % Platelet Estimate Increased (Adequate) Hypochromasia 1+ Schistocytes None seen ESR (0-20) mm/hr PT (11.1-14.7) Seconds INR APTT (22.3-36.8) Seconds Sodium 136 L (137-145) mmol/L Potassium 3.8 (3.4-5.0) mmol/L Chloride 106 (98-107) mmol/L Carbon Dioxide 24 (22-30) mmol/L Anion Gap 6 (4-12) mmol/L BUN 4 L (9-20) mg/dL Creatinine 0.52 L (0.7-1.3) mg/dL Estim Creat Clear Calc 123 ml/min Estimated GFR > 60 (59 - ) Glucose 111 H (65-110) mg/dL Lactic Acid (0.7-2.0) mmol/L Calcium 8.0 L (8.4-10.2) mg/dL Total Bilirubin (0.2-1.3) mg/dL AST (17-59) U/L ALT (6-50) U/L Alkaline Phosphatase (38-126) U/L C-Reactive Protein (<1.0) mg/dL Total Protein (6.3-8.2) g/dL Albumin (3.5-5.1) g/dL Lipase (23-300) U/L Urine Color (Yellow) Urine Appearance (Clear) Urine pH (5.0-9.0) Ur Specific [place] (1.001-1.035) Urine Protein (Negative) mg/dL Urine Glucose (UA) (Negative) mg/dL Urine Ketones (Negative) mg/dL Ur Blood (Man) (Negative) Urine Nitrate (Negative) Urine Bilirubin (Negative) Urine Urobilinogen (<2.0) mg/dL Leukocyte Esterase Rfl (Negative) BRAXTON/UL <Marielos Maya, CLEARANCE DIVER - Last Filed: 01/11/25 03:36> Lab Results 01/10/25 01/10/25 01/11/25 Range/Units 22:20 23:12 00:38 WBC 10.2 H (4.5-10.0) K/mm3 RBC 3.43 L (4.6-6.20) M/mm3 Hgb 8.5 L (14.0-18.0) g/dL Hct 28.0 L (42.0-52.0) % MCV 81.6 (80-100) fl MCH 24.8 L (26-34) pg MCHC 30.4 L (32-36) g/dl RDW 13.9 (11.5-14.5) % Plt Count 517 H (150-375) k/mm3 MPV 9.5 (7.4-10.4) fl Immature Gran % (Auto) 0.4 (0-0.5) % Neut % (Auto) 73.4 H (45.5-73.1) % Lymph % (Auto) 12.1 L (18.3-44.2) % [place] % (Auto) 10.1 H (2.6-8.5) % Eos % (Auto) 3.6 (0-4.4) % Baso % (Auto) 0.4 (0.2-1.2) % Lymph # (Auto) 1.24 (0.9-3.2) K/mm3 [place] # (Auto) 1.0 H (0.1-0.6) K/mm3 Eos # (Auto) 0.4 H (0-0.3) K/mm3 Baso # (Auto) 0.0 (0.0-0.1) K/mm3 Abs Immat Gran (auto) 0.04 H (0.00-0.031) K/mm3 Absolute Neuts (auto) 7.5 H (1.3-6.7) K/mm3 Absolute Nucleated RBC 0.000 (0.0-0.012) K/mm3 Band Neutrophils % Nucleated RBC % 0.0 (0.0-0.2) % Platelet Estimate (Adequate) Hypochromasia Schistocytes ESR > 140 H (0-20) mm/hr PT 16.8 H (11.1-14.7) Seconds INR 1.4 APTT 44.3 H (22.3-36.8) Seconds Sodium 131 L (137-145) mmol/L Potassium 3.5 (3.4-5.0) mmol/L Chloride 96 L (98-107) mmol/L Carbon Dioxide 26 (22-30) mmol/L Anion Gap 9 (4-12) mmol/L BUN 6 L (9-20) mg/dL Creatinine 0.57 L (0.7-1.3) mg/dL Estim Creat Clear Calc 113 ml/min Estimated GFR > 60 (59 - ) Glucose 119 H (65-110) mg/dL Lactic Acid 0.8 (0.7-2.0) mmol/L Calcium 8.6 (8.4-10.2) mg/dL Total Bilirubin 0.7 (0.2-1.3) mg/dL AST 28 (17-59) U/L ALT 39 (6-50) U/L Alkaline Phosphatase 133 H (38-126) U/L C-Reactive Protein 17.8 H (<1.0) mg/dL Total Protein 7.0 (6.3-8.2) g/dL Albumin 3.2 L (3.5-5.1) g/dL Lipase 16 L (23-300) U/L Urine Color Yellow (Yellow) Urine Appearance Clear (Clear) Urine pH 7.5 (5.0-9.0) Ur Specific [place] 1.008 (1.001-1.035) Urine Protein Negative (Negative) mg/dL Urine Glucose (UA) Negative (Negative) mg/dL Urine Ketones Negative (Negative) mg/dL Ur Blood (Man) Negative (Negative) Urine Nitrate Negative (Negative) Urine Bilirubin Negative (Negative) Urine Urobilinogen 1.0 (<2.0) mg/dL Leukocyte Esterase Rfl Negative (Negative) BRAXTON/UL 01/11/25 Range/Units 03:53 WBC 9.2 (4.5-10.0) K/mm3 RBC 3.53 L (4.6-6.20) M/mm3 Hgb 8.8 L (14.0-18.0) g/dL Hct 29.5 L (42.0-52.0) % MCV 83.6 (80-100) fl MCH 24.9 L (26-34) pg MCHC 29.8 L (32-36) g/dl RDW 13.9 (11.5-14.5) % Plt Count 482 H (150-375) k/mm3 MPV 9.7 (7.4-10.4) fl Immature Gran % (Auto) 0.4 (0-0.5) % Neut % (Auto) 73.1 (45.5-73.1) % Lymph % (Auto) 12.3 L (18.3-44.2) % [place] % (Auto) 9.8 H (2.6-8.5) % Eos % (Auto) 3.9 (0-4.4) % Baso % (Auto) 0.5 (0.2-1.2) % Lymph # (Auto) 1.13 (0.9-3.2) K/mm3 [place] # (Auto) 0.9 H (0.1-0.6) K/mm3 Eos # (Auto) 0.4 H (0-0.3) K/mm3 Baso # (Auto) 0.1 (0.0-0.1) K/mm3 Abs Immat Gran (auto) 0.04 H (0.00-0.031) K/mm3 Absolute Neuts (auto) 6.7 (1.3-6.7) K/mm3 Absolute Nucleated RBC 0.000 (0.0-0.012) K/mm3 Band Neutrophils % Not Reportable Nucleated RBC % 0.0 (0.0-0.2) % Platelet Estimate Increased (Adequate) Hypochromasia 1+ Schistocytes None seen ESR (0-20) mm/hr PT (11.1-14.7) Seconds INR APTT (22.3-36.8) Seconds Sodium 136 L (137-145) mmol/L Potassium 3.8 (3.4-5.0) mmol/L Chloride 106 (98-107) mmol/L Carbon Dioxide 24 (22-30) mmol/L Anion Gap 6 (4-12) mmol/L BUN 4 L (9-20) mg/dL Creatinine 0.52 L (0.7-1.3) mg/dL Estim Creat Clear Calc 123 ml/min Estimated GFR > 60 (59 - ) Glucose 111 H (65-110) mg/dL Lactic Acid (0.7-2.0) mmol/L Calcium 8.0 L (8.4-10.2) mg/dL Total Bilirubin (0.2-1.3) mg/dL AST (17-59) U/L ALT (6-50) U/L Alkaline Phosphatase (38-126) U/L C-Reactive Protein (<1.0) mg/dL Total Protein (6.3-8.2) g/dL Albumin (3.5-5.1) g/dL Lipase (23-300) U/L Urine Color (Yellow) Urine Appearance (Clear) Urine pH (5.0-9.0) Ur Specific [place] (1.001-1.035) Urine Protein (Negative) mg/dL Urine Glucose (UA) (Negative) mg/dL Urine Ketones (Negative) mg/dL Ur Blood (Man) (Negative) Urine Nitrate (Negative) Urine Bilirubin (Negative) Urine Urobilinogen (<2.0) mg/dL Leukocyte Esterase Rfl (Negative) BRAXTON/UL <El Morgan MD - Last Filed: 01/11/25 06:45> Discharge Plan Discharge Clinical Impression: Pancreatic carcinoma, Lesion of liver, Anemia, GI malignancy <Marielos Maya APRN - Last Filed: 01/11/25 03:36> Patient Disposition: Acute Care Hospital <Marielos Maya APRN - Last Filed: 01/11/25 03:36> Condition: Guarded Prognosis <SAMIR Carreon Last Filed: 01/11/25 03:36> Instructions: Antibiotic Form <Marielos Maya APRN - Last Filed: 01/11/25 03:36> Patient Language: [place]ian <Marielos Maya APRN - Last Filed: 01/11/25 03:36> Prescriptions: No Action nystatin 100,000 unit/mL suspension 500,000 unit PO QID 14 Days Qty: 280 0RF Rx Instructions: administer 1/2 of dose in each side of the mouth docusate sodium [Col-Rite] 100 mg capsule 100 mg PO DAILY ferrous sulfate 324 mg (65 mg iron) tablet,delayed release (DR/EC) 324 mg PO DAILY Qty: 90 0RF cyclobenzaprine 5 mg tablet 5 mg PO TID PRN (Reason: muscle spasm) Qty: 60 0RF hydrocodone-acetaminophen 5-325 mg tablet 1 tablet PO QHS PRN (Reason: pain (scale score 7-10)) Qty: 20 0RF omeprazole 20 mg capsule,delayed release(DR/EC) 20 mg PO DAILY Qty: 90 0RF clotrimazole 1 % ointment 1 applic topical BID 14 Days Qty: 56.7 0RF <Marielos Maya APRN - Last Filed: 01/11/25 03:36> Follow-up/Referrals: Nicholas Traylor APRN [Primary Care Provider] - <Marielos Maya APRN - Last Filed: 01/11/25 03:36>
[2025-01-11 00:58] LABS: INR 1.4; Prothrombin Time 16.8 Seconds (11.1-14.7)
[2025-01-11 00:59] LABS: Partial Thromboplastin Time 44.3 Seconds (22.3-36.8)
[2025-01-11 01:20] LABS: CRP 17.8 mg/dL (<1.0)
[2025-01-11] MEDS: SODIUM CHLORIDE 0.9% IV 1,000 ML 999 ML IV CONT ×2 (01:36→01:37)
[2025-01-11] MEDS: CEFEPIME 2 GM in SODIUM CHLORIDE 0.9% IV 50 ML 100 ML IVPB (01:37)
[2025-01-11] MEDS: SODIUM CHLORIDE 0.9% IV 200 ML 999 ML IV CONT (01:37)
[2025-01-11] MEDS: HYDROmorphone HCL INJ (*CRX) 2 MG/ML VIAL 0.5 MG IV PUSH ×3 (01:37→22:18)
[2025-01-11] MEDS: VANCOMYCIN 1,750 MG/NS 500 ML 1,750 MG/500 ML BAG 250 MG IVPB (02:39)
[2025-01-11] MEDS: SODIUM CHLORIDE 0.9% IV 1,000 ML 150 ML IV CONT (03:38)
[2025-01-11 04:00] LABS: Hematocrit 29.5 % (42.0-52.0); Hemoglobin 8.8 g/dL (14.0-18.0); Immature Granulocyte Percent A 0.4 % (0-0.5); Lymphocytes Absolute Auto 1.13 K/mm3 (0.9-3.2); Mean Corpuscular HGB Conc 29.8 g/dl (32-36); Mean Corpuscular Hemoglobin 24.9 pg (26-34); Mean Corpuscular Volume 83.6 fl (80-100); Nucleated Red Blood Cells Absolute Auto 0.000 K/mm3 (0.0-0.012); Nucleated Red Blood Cells Perc 0.0 % (0.0-0.2); Platelet Count Result 482 k/mm3 (150-375); Red Blood Count 3.53 M/mm3 (4.6-6.20); White Blood Count 9.2 K/mm3 (4.5-10.0)
[2025-01-11 04:26] LABS: Hypochromasia 1+; Schistocytes None Seen
[2025-01-11 05:04] LABS: Anion Gap 6 mmol/L (4-12); Blood Urea Nitrogen 4 mg/dL (9-20); Calcium 8.0 mg/dL (8.4-10.2); Carbon Dioxide 24 mmol/L (22-30); Chloride 106 mmol/L (98-107); Estimated CRCL calculation 123 ml/min; Estimated Glomerular Filt Rate > 60; Glucose 111 mg/dL (65-110); Potassium 3.8 mmol/L (3.4-5.0); Sodium 136 mmol/L (137-145)
[2025-01-11] MEDS: SODIUM CHLORIDE 0.9% IV 1,000 ML 150 ML ×2 (10:35→18:38)
[2025-01-11] MEDS: VANCOMYCIN 1,500 MG/NS 500 ML 1,500 MG/500 ML BAG 250 MG IVPB (14:04)
[2025-01-12] VITALS (7 sets, daily range): BP systolic 104–125; BP diastolic 69–82; PULSE 82–99; RESP 15–25; TEMP 36.6; O2SAT 94–99
== END 2025-01-12 05:36 | disposition short-term general hospital (02) ==
PROVIDERS: Student in an Organized Health Care Education/Training Program; Emergency Provider Registered Nurse; PCP Nurse Practitioner Family
DX: C25.9 Malignant neoplasm of pancreas, unspecified (principal); K76.9 Liver disease, unspecified; D64.9 Anemia, unspecified; Z85.820 Personal history of malignant melanoma of skin; Z87.891 Personal history of nicotine dependence
CPT/HCPCS: 36415; 80048; 80053; 81003; 83605; 83690; 85025; 85610; 85652; 85730; 86140; 93005; 96365; 96366; 96367; 96375; 96376; 99285; J0692; J1171; J3373; J7030

== ENCOUNTER 2025-01-15 12:31 | Outpatient (CLI) | payer BC, SELFPAY ==
--- OUTSIDE RECORDS SUMMARY | 2025-01-15 12:33 | XMS_ITS | Encounter Summary ---
Author Organization [facility] Address [address] [place] [address] Care Team Providers Care Sports Attorney Name Role Phone Unavailable Primary Care Provider Unavailabl e Reason for Visit * Reason Onset Date Comments Transitional Care 01/15/2025 Encounter Details Date Type Department Care Team (Late st Contact Info) Description 01/15/2025 Telephone Transitional Care at [address] [address] Laura Infante RN Transitional Care Social History Tobacco Use Types Packs/Day Years Used Date Smoking Tobacco: Former Cigarettes 1 20 Alcohol Use Standard Drinks/Week Comments Not Currently 0 (1 standard drink = 0.6 oz pur e alcohol) 0-1 a year AUDIT-C Answer Date Recorded Q1: How often do you have a drink containing alcohol? Never 01/12/2025 Q2: How many drinks containi ng alcohol do you have on a typical day when you are drinking? Patient does not drink Q3: How often do you have si x or more drinks on one occasion? Never 01/12/2025 Overall Financial Resource Strain (CARDIA) Answe r Date Recorded How hard is it for you to pa y for the very basics like food, housing, medical care, and heating? Not hard at all 01/12/2025 [place] [facility] Occupat ional [facility] - Occupational Stress Questionnaire Answer Date Recorded Do you feel stress - tense, restless, nervous, or anxious, or unable to sleep at night because your mind is troubled all the time - these days? Not at all 01/12/2025 Hunger Vital Sign Answer Date Recorded Within the past 12 months, y ou worried that your food would run out before you got the money to buy more. Never true 01/13/20 25 Within the past 12 months, t he food you bought just didn't last and you didn't have money to get more. Never true 01/12/2025 PRAPARE - Transportation Answer Date Re corded In the past 12 months, has l ack of transportation kept you from medical appointments or from getting medications? No 01/03 In the past 12 months, has l ack of transportation kept you from meetings, work, or from getting things needed for daily living? No 01/12/2025 Housing Stability Vital Sign Answer Pradip e Recorded In the last 12 months, was t here a time when you were not able to pay the mortgage or rent on time? No 01/12/2025 Number of Times Moved in the Last Year Not on fi le 01/12/2025 At any time in the past 12 m [facility], were you homeless or living in a nursing home (including now)? No 01/12/2025 Sex and Gender Information Value Date Recorded Sex Assigned at Not on file Legal Sex Male 12:45 AM CDT Gender Identity Not on file Sexual Orientation Not on file documented as of this encounter Functional Status * Is person deaf or have serious hearing difficulty? Answer Date of Assessment Author No 01/12/2025 6:34 AM Ai Gipson RN * Is person blind or have serious difficulty seeing? Answer Date of Assessment Author No 01/12/2025 6:34 AM Ai Gipson RN * Does person have serious difficulty walking/climbing stairs? Answer Date of Assessment Author No 01/12/2025 6:34 AM Ai Gipsno RN * Does person have difficulty dressing/bathing? Answer Date of Assessment Author No 01/12/2025 6:34 AM Ai Gipson RN * Does person have difficulty doing errands alone? Answer Date of Assessment Author No 01/12/2025 6:34 AM Ai Gipson RN documented as of this encounter Mental Status * Does person have difficulty concentrating/remembering/making decisions? Answer Entry Date Author No 01/12/2025 6:34 AM Ai Gipson RN documented in this encounter Miscellaneous Notes * Telephone Encounter - Laura Infante RN - 01/15/2025 10:31 AM CDT RN 48 hour post discharge follow-up contact by telephone: Patient with recent acute discharge from [facility] on 01/13/2025. This RN contacted patient's by telephone ([phone]) to complete 48-hour post-discharge follow-up encounter for [facility] clinic appointment. How are you feeling after getting home from the hospital? Patient's states he is feeling ok but his back is still hurting. Has been taking pain medication with some relief of pain. Do you have a current Primary Care Provider? yes When is your PCP follow up scheduled? No appointment scheduled at this time. is calling today to schedule appointment. Does patient have a [facility] appt scheduled? no If no, schedule appt with patient. Explained [facility]. Patient's declined appointment at this time. Do you have all your prescribed medications? yes If no, why? Remind patient to bring medications to appt. Chart review for any wounds, lines, or drains. Do you know how to care for wound/line/drain? no Do you have all the supplies you need? N\A Do you have transportation to your [facility] appt? N\A If no, action taken. Are you receiving any home health services? no If yes, do you have a start of care date? Did patient receive ordered DME at [place], if applicable? no Do you have any additional questions or concerns that I can help with? no Patient denied any further questions at this time. Patient was encouraged to call this technical proposal writer with questions, concerns, barriers to care, and/or additional resources if needed. Reminded patient to bring all medications, insurance/ID cards, testing/wound supplies, and BP/glucose logs as applicable. Patient verbalized understanding and agreement with plan. This CM and clinic number provided to patient. Call Duration: 15 mins Laura Infante RN, BSN [facility] Office: [phone] 01/15/2025 documented in this encounter Plan of Treatment Upcoming Encounters Date Type Department Care Team (Late st Contact Info) Description 01/27/2025 11:30 AM CDT Appointment [facility] IVR [address] [place] [address] Heather Willoughby PA [facility] [place] [address] documented as of this encounter Visit Diagnoses Not on filedocumented in this encounter
--- OUTSIDE RECORDS SUMMARY | 2025-01-15 12:33 | XMS_ITS | Encounter Summary ---
Author Organization [facility] Address [address] [place] [address] Care Team Providers Care Engraver Hand [employer] Metals Name Role Phone Unavailable Primary Care Provider Unavailabl e Reason for Visit * Reason Onset Date Comments Transitional Care 01/14/2025 Encounter Details Date Type Department Care Team (Late st Contact Info) Description 01/14/2025 Telephone Transitional Care at [address] [address] Laura Infante RN Transitional Care [...] and heating? Not hard at all 01/12/2025 [place] Island[place] of Occupat ional Health - Occupational Stress [...] were you homeless or living in a skilled nursing (including now)? No 01/12/2025 Sex and Gender [...] Gipson RN * Does person have difficulty dressing/bathing? [...] Telephone Encounter - Laura Infante RN - 01/14/2025 11:25 AM CDT RN 48 hour post discharge follow-up contact by telephone: Patient with recent IP discharge from [facility] on 01/13/2025. RN attempted to reach patient today by telephone ([phone]) to complete 48 hour post discharge follow-up contact. RN was unable to reach patient at this time and left voice message, encouraging patient to call this ghost writer back when available to provide update since last follow-up contact. RN will await call back from and will continue to follow Patient for [facility] clinic appointment. Call duration: 1 min Laura Infante RN, BSN Breaker Machine Operator, [facility] 01/14/2025 documented in this encounter Plan of Treatment Upcoming Encounters Date Type Department Care Team (Late st Contact Info) Description 01/27/2025 11:30 AM CDT Appointment [facility] IV[facility] [address] [place] [address] Heather Willoughby PA [address] [place] [id number] documented as of this encounter Visit Diagnoses Not on filedocumented in this encounter
--- OUTSIDE RECORDS SUMMARY | 2025-01-15 12:33 | XMS_ITS | Encounter Summary ---
Author Organization [facility] Address [address] [place] [address] Care Team Providers Care Measuring Clerk Name Role Phone Jian Worthington MD Primary Care Provider [phone] Encounter Details Date Type Department Care Team (Late st Contact Info) Description 04/22/2020 Community Orders [facility] EPICCARE LINK Jian Worthington MD [address] [place] [address] Social History Tobacco Use Types [...] Description 01/21/2025 8:45 AM CDT Office Visit [facility] [place] [id number] Ubaldo Marinelli MD [address] [address] documented as of this encounter Visit Diagnoses Diagnosis Malignant melanoma (CMS/HCC HHS/HCC)- Primary Melanoma of skin, site unspecified documented in this encounter Care Teams Measuring Clerk Relationship Specialty Start Date End Date Jian Worthington MD [address] [place] [address] PCP - General HEMATOLOGY/ONCOLOGY 03/22/19 documented as of this encounter
--- OUTSIDE RECORDS SUMMARY | 2025-01-15 12:33 | XMS_ITS | Encounter Summary ---
Author Organization [facility] Address [address] [place] [address] Care Team Providers Care Home Care Manager Name Role Phone Unavailable Primary Care Provider Unavailabl e Encounter Details Date Type Department Care Team (Late st Contact Info) Description 01/15/2025 Telephone Transitional Care at [facility] [address] [place] [phone] Laura Infante RN Social History Tobacco Use Types Packs/Day Years [...] and heating? Not hard at all 01/12/2025 [place] of Occupat ional Health - Occupational Stress [...] any time in the past 12 m [facility], were you homeless or living in a alf (including now)? No 01/12/2025 Sex and Gender Information Value Date Recorded Sex Assigned at Not on file Legal Sex Male 12:45 AM CDT Gender Identity Not on file Sexual Orientation Not on file documented as of this encounter Functional Status * Is person deaf or have serious hearing difficulty? Answer Date of Assessment Author No 01/12/2025 6:34 AM [place] Ai Rowan RN * Is person blind or have serious difficulty seeing? Answer Date of Assessment Author No 01/12/2025 6:34 AM CDT Ai Rowan RN * Does person have serious difficulty walking/climbing stairs? Answer Date of Assessment Author No 01/12/2025 6:34 AM CDT Ai Rowan RN * Does person have difficulty dressing/bathing? Answer Date of Assessment Author No 01/12/2025 6:34 AM CDT Ai Rowan, PATRICK * Does person have difficulty doing errands alone? Answer Date of Assessment Author No 01/12/2025 6:34 AM CDT Ai Rowan RN documented as of this encounter Mental Status * Does person have difficulty concentrating/remembering/making decisions? Answer Entry Date Author No 01/12/2025 6:34 AM Ai Gipson RN documented in this encounter Plan of Treatment Upcoming Encounters Date Type Department Care Team (Late st Contact Info) Description 01/27/2025 11:30 AM CDT Appointment [facility] IVR [address] [place] [address] Heather Willoughby PA [address] [place] [id number] documented as of this encounter Visit Diagnoses Not on filedocumented in this encounter
--- OUTSIDE RECORDS SUMMARY | 2025-01-15 12:33 | XMS_ITS | Encounter Summary ---
Author Organization [facility] Address [address] [place] [address] Care Team Providers Care Pull Through Hooker Name Role Phone Unavailable Primary Care Provider Unavailabl e Encounter Details Date Type Department Care Team (Late st Contact Info) Description 01/14/2025 Orders Only [facility] - Hematology/Oncology [address] [place] [address] Rashawn Khan R, DO Social History Tobacco Use Types Packs/Day Years [...] and heating? Not hard at all 01/12/2025 [facility] [place] of Occupat ional Health - Occupational Stress [...] any time in the past 12 m [facility], were you homeless or living in a longterm (including now)? No 01/12/2025 Sex and Gender [...] Ai Rowan, PATRICK * Does person have serious difficulty walking/climbing [...] [facility] IVR [address] [place] [address] Heather Willoughby PA [address] [place] [address] documented as of this encounter Visit Diagnoses Not on filedocumented in this encounter
--- OUTSIDE RECORDS SUMMARY | 2025-01-15 12:34 | XMS_ITS | Clinical Summary ---
Author Organization [facility] Address [address] 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,non-owned Affiliates and Associated Physician Practices is amultiple site organization consisting of ambulatory clinics and hospital sitesin [place], [place], [place] and [place]. This disclosure is being madepursuant to the Care Everywhere program and may not contain all information available regarding this patient. Last updated 18.[employer] [place] Allergies No known active allergies Medications * Be aware that medications may not be up to date on this document. Alwaysverify current medications with the patient. oxyCODONE, immediate release, (Roxicodone) 5 MG tabletIndication s:Pancreatic mass (HCC) Take 1 (one) tablet by mouth every 4 hours as needed 12 tablet 01/13/2025 4:27 PM CDT 01/13/2025 5 Active polyethylene glycol 3350 (Miralax) 17 GM/SCOOP powder Take 17 (seventeen) g by mouth once daily 238 g 01/14/2025 Active sennosides (Senokot) 8.6 MG tablet Take 1 (one) tablet by mouth once daily for 10 days 10 tablet 01/13/2025 4:27 PM CDT 01/14/2025 5 Active folic acid (Folvite) 1 MG tablet Take 1 (one) tablet by mouth once daily 90 tablet 01/13/2025 4:27 PM CDT 01/13/2025 Active pantoprazole EC (Protonix) 40 MG tablet Take 1 (one) tablet by mouth once daily 90 tablet 3 01/13/2025 4:27 PM CDT 01/14/2025 Active Active Problems Problem Noted Date Diagnosed Date Rib pain 01/13/2025 Assessment & Plan (01/13/2025 4:01 PM CDT): Suspect secondary to a work related injury several weeks ago, will closely follow CT results. Cancer, metastatic to liver 01/12/2025 Lymphadenopathy, abdominal 01/12/2025 Assessment & Plan (01/13/2025 4:01 PM CDT): The patient presented to the OSH with abdominal and back pain, malaise, and recent weight loss of 20lbs in [address] revealed inumerable lesions in the liver and findings in the upper abdomen for which a primary pancreatic malignancy. The following were consulted: GI: - Recommend IR consult for liver biopsy, signed off IR: - May perform biopsy pending imaging Onc: - CT chest/pancreas/pelvis w/ contrast, CA 19-[address] this AM. IR recommending outpatient follow up for biopsy. Plan: - NPO for CT imaging - IR follow up outpatient - Onc follow up outpatient - Pain regimen: - Tylenol 1g Q8H - Oxy 5/10 Q4H PRN Assessment & Plan (01/12/2025 4:52 PM CDT): The patient presented to the OSH with abdominal and back pain, malaise, and recent weight loss of 20lbs in [address] revealed inumerable lesions in the liver and findings in the upper abdomen for which a primary pancreatic malignancy PLAN: - GI consult, recommending IR consult for liver biopsy, signed off - IR consult, call in the morning on 01/13 to see when they will be able to do the biopsy and adjust diet accordingly - Heme/onc consult, recommend CT chest/pancreas/pelvis with contrast, CA19-9 (ordered). Will follow peripherally until tissue biopsy results are back. Epigastric pain 01/12/2025 Assessment & Plan (01/13/2025 4:01 PM CDT): The patient presented to the OSH with abdominal and back pain, malaise, and recent weight loss of 20lbs in [address] revealed inumerable lesions in the liver and findings in the upper abdomen for which a primary pancreatic malignancy. The following were consulted: GI: - Recommend IR consult for liver biopsy, signed off IR: - May perform biopsy pending imaging Onc: - CT chest/pancreas/pelvis w/ contrast, CA 19-[address] this AM. IR recommending outpatient follow up for biopsy. Plan: - NPO for CT imaging - IR follow up outpatient - Onc follow up outpatient - Pain regimen: - Tylenol 1g Q8H - Oxy 5/10 Q4H PRN Assessment & Plan (01/12/2025 4:52 PM CDT): The patient presented to the OSH with abdominal and back pain, malaise, and recent weight loss of 20lbs in [address] revealed inumerable lesions in the liver and findings in the upper abdomen for which a primary pancreatic malignancy PLAN: - GI consult, recommending IR consult for liver biopsy, signed off - IR consult, call in the morning on 01/13 to see when they will be able to do the biopsy and adjust diet accordingly - Heme/onc consult, recommend CT chest/pancreas/pelvis with contrast, CA19-9 (ordered). Will follow peripherally until tissue biopsy results are back. Elevated alkaline phosphatase level 01/12/2025 Hypoalbuminemia 01/12/2025 Dysuria 01/12/2025 Assessment & Plan (01/13/2025 4:01 PM CDT): [place] UA, will CTM Assessment & Plan (01/12/2025 4:52 PM CDT): [place] UA without signs of UTI - CTM symptoms Normocytic anemia 01/12/2025 Assessment & Plan (01/13/2025 4:01 PM CDT): Iron panel and ferritin suggestive of mixed LALY with anemia of chronic disease. Will CTM. Assessment & Plan (01/12/2025 4:52 PM CDT): Hgb 8.9 on admission - iron panel, ferritin, B12, folate Gastroesophageal reflux disease without esophagi tis 01/12/2025 Assessment & Plan (01/13/2025 4:01 PM CDT): Continue home pantoprazole Assessment & Plan (01/12/2025 4:52 PM CDT): - continue home pantoprazole Liver masses 01/12/2025 Assessment & Plan (01/13/2025 4:01 PM CDT): The patient presented to the OSH with abdominal and back pain, malaise, and recent weight loss of 20lbs in [address] revealed inumerable lesions in the liver and findings in the upper abdomen for which a primary pancreatic malignancy. The following were consulted: GI: - Recommend IR consult for liver biopsy, signed off IR: - May perform biopsy pending imaging Onc: - CT chest/pancreas/pelvis w/ contrast, CA 19-[address] this AM. IR recommending outpatient follow up for biopsy. Plan: - NPO for CT imaging - IR follow up outpatient - Onc follow up outpatient - Pain regimen: - Tylenol 1g Q8H - Oxy 5/10 Q4H PRN Assessment & Plan (01/12/2025 4:52 PM CDT): The patient presented to the OSH with abdominal and back pain, malaise, and recent weight loss of 20lbs in [address] revealed inumerable lesions in the liver and findings in the upper abdomen for which a primary pancreatic malignancy PLAN: - GI consult, recommending IR consult for liver biopsy, signed off - IR consult, call in the morning on 01/13 to see when they will be able to do the biopsy and adjust diet accordingly - Heme/onc consult, recommend CT chest/pancreas/pelvis with contrast, CA19-9 (ordered). Will follow peripherally until tissue biopsy results are back. Pancreatic mass 01/11/2025 Assessment & Plan (01/13/2025 4:01 PM CDT): The patient presented to the OSH with abdominal and back pain, malaise, and recent weight loss of 20lbs in [address] revealed inumerable lesions in the liver and findings in the upper abdomen for which a primary pancreatic malignancy. The following were consulted: GI: - Recommend IR consult for liver biopsy, signed off IR: - May perform biopsy pending imaging Onc: - CT chest/pancreas/pelvis w/ contrast, CA 19-[address] this AM. IR recommending outpatient follow up for biopsy. Plan: - NPO for CT imaging - IR follow up outpatient - Onc follow up outpatient - Pain regimen: - Tylenol 1g Q8H - Oxy 5/10 Q4H PRN Assessment & Plan (01/12/2025 4:52 PM CDT): The patient presented to the OSH with abdominal and back pain, malaise, and recent weight loss of 20lbs in [address] revealed inumerable lesions in the liver and findings in the upper abdomen for which a primary pancreatic malignancy PLAN: - GI consult, recommending IR consult for liver biopsy, signed off - IR consult, call in the morning on 01/13 to see when they will be able to do the biopsy and adjust diet accordingly - Heme/onc consult, recommend CT chest/pancreas/pelvis with contrast, CA19-9 (ordered). Will follow peripherally until tissue biopsy results are back. Encounters Date Type Department Care Team Description 01/15/2025 Telephone Transitional Care at [address] [id number] Laura Infante, manager inspection 01/15/2025 Telephone Transitional Care at [address] [address] Laura Infante, RN 01/14/2025 Telephone Transitional Care at [address] [address] Laura Infante, manager inspection 01/14/2025 Orders Only [facility] - Hematology/Oncolog y [address] [place] [address] Rashawn Khan DO 01/12/2025 6:25 AM CDT - 01/13/2025 7:23 PM CDT Hospital Encounter [facility] ACUTE [address] [place] [address] Ana Olivarez MD Bastin, Taylor J, MD Bhalla, Kishley, MD Gastroenterology Discharge Disposition: Home or Self Care 01/12/2025 Travel 01/11/2025 Telephone [facility] [address] [place] [address] Ana Olivarez MD Hospital Admission from Last 3 Months Family History Medical History Relation Name Comments Cancer - Esophageal Brother Jonathon Cancer Sister Ana Relation Name Status Comments Brother Jonathon Alive Sister Ana Alive Social History Tobacco Use Types Packs/Day Years Used Date Smoking Tobacco: Former Cigarettes 06 24 Tobacco Cessation:Counseling Given: Not Answered Alcohol Use Standard Drinks/Week Comments Not Currently [...] and heating? Not hard at all 01/12/2025 [facility] - Occupational Stress [...] any time in the past 12 m [facility], were you homeless or living in a care home (including now)? No 01/12/2025 Sex and Gender Information Value Date Recorded Sex Assigned at Not on file Legal Sex Male 12:45 AM CDT Gender Identity Not on file Sexual Orientation Not on file Last Filed Vital Signs Vital Sign Reading Time Taken Comments Blood Pressure 117/71 01/13/2025 4:25 PM CDT Pulse 87 01/13/2025 4:25 PM CDT Temperature 37.2 C (98.9 F) 01/13/2025 4:25 PM CDT Respiratory Rate 18 01/13/2025 3:57 AM CDT Oxygen Saturation 94% 01/13/2025 4:25 PM CDT Inhaled Oxygen Concentration - - Weight - - Height 170.2 cm (5' 7) 01/12/2025 6:31 AM CDT Body Mass Index - - Plan of Treatment Upcoming Encounters Date Type Department Care Team (Late st Contact Info) Description 01/27/2025 11:[address] [facility] [address] [place] [address] Heather Willoughby PA [address] [place] [id number] Health Maintenance Due Date Last Done Comments COLOGUARD (AGES 45-75) - COL ON CA SCREENING 1967 COLON MONITORING 1967 COLONOSCOPY - COLON CA SCREENING 1967 CT COLONOGRAPHY - COLON CA SCREENING 1967 Colorectal Cancer Screening 1967 FIT - COLON CA SCREENING 1967 FLEX SIG - COLON CA SCREENING 1967 LIPID TESTING 1967 HIV SCREENING 08/08/1982 HEPATITIS C SCREENING 08/04/1985 DTAP/TDAP/TD VACCINES (1 - Tdap) 08/08/1986 HEPATITIS B VACCINE (1 of 3 - 19+ 3-dose series) 08/08/1986 PNEUMOCOCCAL VACCINE 50+ (1 of 1 - PCV) 08/08/2017 ZOSTER VACCINE (1 of 2) 08/08/2017 COVID-19 VACCINE (1 - 2023-2 5 season) 2024 DEPRESSION SCREENING 06/05/2024 INFLUENZA VACCINE (#1) 2025 HIB VACCINE Aged Out No longer eligi ble based on patient's age to complete this topic HPV VACCINE Aged Out No longer eligi ble based on patient's age to complete this topic MENINGOCOCCAL (Group B) VACC INE SHARED DECISION-MAKING Aged Out No longer eligibl e based on patient's age to complete this topic MENINGOCOCCAL GROUPS A/C/Y/W VACCINE Aged Out No longer eligible b ased on patient's age to complete this topic Procedures Procedure Name Priority Date/Time Associated Diagnosis Comments CT PELVIS W CONTRAST PENDING DISCHARGE 01/13/2025 5:24 PM CDT Pancreatic mass (HCC) CT CHEST W CONTRAST PENDING DISCHARGE 01/13/2025 5:24 PM CDT Pancreatic mass (HCC) CT PANCREAS WWO CONTRAST PENDING DISCHARGE 01/13/2025 5:24 PM CDT Pancreatic mass (HCC) BLOOD TYPE VERIFICATION Routine 01/13/2025 9:09 AM CDT OT EVAL AND TREAT Routine 01/13/2025 7:1 1 AM CDT RENAL FUNCTION PANEL Routine 01/13/2025 7:09 AM CDT FOLATE Routine 01/13/2025 7:09 AM CDT VITAMIN B12 AM Draw 01/13/2025 7:09 AM CDT TYPE + SCREEN PANEL Routine 01/13/2025 7 :07 AM CDT CANCER ANTIGEN (CA) 19-9 Routine 01/13/2025 7:07 AM CDT CBC W/O DIFFERENTIAL AM Draw 01/13/2025 7:07 AM CDT FERRITIN Routine 01/13/2025 7:07 AM CDT IRON + TRANSFERRIN PANEL Routine 01/13/2025 7:07 AM CDT URINALYSIS REFLEX TO MICROSCOPIC NO CULTURE Routine 01/12/2025 10:38 AM CDT PHOSPHORUS BLOOD STAT 01/12/2025 9:15 AM CDT MAGNESIUM BLOOD STAT 01/12/2025 9:15 AM CDT COMPREHENSIVE METABOLIC PANEL STAT 01/12/2025 9:15 AM CDT PT-INR STAT 01/12/2025 9:14 AM CDT CBC W AUTO DIFFERENTIAL STAT 01/12/2025 9:14 AM CDT from Last 3 Months Results * CT Pelvis W Contrast (01/13/2025 5:24 PM CDT) Anatomical Region Laterality Modality Pelvis Computed Tomogra phy 01/13/2025 9:19 PM CDT Impressions 01/14/2025 7:17 AM CDT Impression: 1.Ill-defined hypoenhancing lesion within the head of the pancreas measuring approximately 2.4 x 2.5 x 3.2, could suggest primary pancreatic adenocarcinoma. The lesion is encasing the superior mesenteric artery (>180 degrees) and abutting the confluence of the portal vein. No involvement of the celiac, hepatic artery or superior mesenteric artery. 2.Multiple enlarged and necrotic peripancreatic, upper retroperitoneal and ander hepatis lymph nodes, multiple hepatic lesions and pulmonary nodules consistent with metastasis. 3.No evidence of metastatic disease in the pelvis. > Dictated by Barbara Kan MD > Dictated by Single Corner Cutter I, Jasvir Michelle MD have personally reviewed and interpreted this examination/study. > Interpreting Provider: Jasvir Michelle MD on 01/14/2025 7:17 AM Narrative 01/14/2025 7:17 AM CDT PROCEDURE: CT PELVIS W CONTRAST, CT CHEST W CONTRAST, CT PANCREAS WWO CONTRAST, DATE/TIME OF EXAM: 01/13/2025 5:24 PM, LOCATION [facility] INDICATION: K86.89: Pancreatic mass (HCC) ADDITIONAL CLINICAL INFORMATION: Ordering Provider Reason For Exam: mets (accession [id number]), mets (accession [id number]), concern for metastatic malignancy with pancreatic primary (accession [id number]) Technologist Note: Additional: COMPARISON: None. TECHNIQUE: 1.CT of the chest was performed following the uneventful administration of 100 mL of Isovue 370 intravenous contrast according to standard protocol. 2.CT of the abdomen was performed prior to and following the uneventful administration of 100 mL of Isovue 370 intravenous contrast according to a pancreas protocol. 3.CT of the pelvis was performed without contrast according to standard protocol. FINDINGS: CHEST: Lower Neck and Axillae: Postsurgical changes within the left axilla. Lungs: Posterior right lower lobe 1.4 x 2.2 cm subpleural mass. Subpleural nodularity along the posterior aspect of the left lower lobe measuring up to 0.5 cm (series 1 image 54) Trace bilateral pleural effusions with adjacent atelectasis. Heart and Pericardium: The cardiac chambers are normal in size. No pericardial fluid or thickening is present. Mediastinum and [place]: No enlarged lymph nodes are present. Thoracic Vasculature: No vascular abnormality is present. Bones and Chest Wall: Bone windows demonstrate no suspicious lytic or blastic lesions. The visible osseous structures are intact. Degenerative changes are seen in the spine. Abdomen Liver: Numerous heterogeneously hypoenhancing masses with a target-like appearance scattered throughout the liver with washout and surrounding hyperemia. For reference, the largest is located in segment 5/8 and measures 4.0 x 4.6 x 3.5 cm. Consistent with hepatic metastatic disease. Gallbladder and Bile Ducts: Normal. Spleen: Incidental splenule. Pancreas Pancreas morphology: Normal. Pancreatic lesions: An approximately 3 x 1.6 cm ill-defined hypodense area noted in the head of pancreas (image 76 series 5 and image 47 series 11). No associated pancreatic or biliary ductal obstruction or proximal ductal dilation. Pancreatic Lesion Resectability Contact with PV/SMV: Contact greater than 180 (image 73 series 5). Contact with most proximal draining jejunal branch: Yes. Contact with IVC: No. Contact with Common Hepatic Artery: None. Contact with Celiac Artery: None. Contact with SMA: None. Contact with first jejunal SMA branch: No. Contact with Aorta: None. Adrenals: Normal. Kidneys: Normal. Gastrointestinal: Oral contrast is noted opacifying the stomach and small bowel loops. The stomach and visualized loops of large and small bowel are unremarkable. Normal appendix. Mesentery/Peritoneum/Retroperitoneum: Multiple enlarged peripancreatic and upper retroperitoneal lymph nodes. There is an approximately 2.3 cm necrotic periportal lymph node in image 65 series 5. Abdominal Vasculature: No vascular abnormality is present. Bones: Bone windows demonstrate no suspicious lytic or blastic lesions. The visible osseous structures are intact. Degenerative changes are seen in the spine. Soft tissues: Normal. PELVIS: Ureters: Normal. Bladder: Normal. Reproductive Organs: The prostate is partially calcified. Vasculature: No vascular abnormality is present. Bones: Polyarticular degenerative changes. Soft tissues: Normal. Procedure Note Jasvir Michelle MD - 01/14/2025 PROCEDURE: CT PELVIS W CONTRAST, CT CHEST W CONTRAST, CT PANCREAS WWO CONTRAST, DATE/TIME OF EXAM: 01/13/2025 5:24 PM, LOCATION [facility] INDICATION: K86.89: Pancreatic mass (HCC) ADDITIONAL CLINICAL INFORMATION: Ordering Provider Reason For Exam: mets (accession [id number]), mets (accession [id number]), concern for metastatic malignancy with pancreatic primary (accession [id number]) Technologist Note: Additional: COMPARISON: None. TECHNIQUE: 1.CT of the chest was performed following the uneventful administrationof 100 mL of Isovue 370 intravenous contrast according to standard protocol. 2.CT of the abdomen was performed prior to and following the uneventful administration of 100 mL of Isovue 370 intravenous contrast according toa pancreas protocol. 3.CT of the pelvis was performed without contrast according to standard protocol. FINDINGS: CHEST: Lower Neck and Axillae: Postsurgical changes within the left axilla. Lungs: Posterior right lower lobe 1.4 x 2.2 cm subpleural mass. Subpleural nodularity along the posterior aspect of the left lower lobe measuring up to 0.5 cm (series 1 image 54) Trace bilateral pleural effusions with adjacent atelectasis. Heart and Pericardium: The cardiac chambers are normal in size. No pericardial fluid orthickening is present. Mediastinum and [place]: No enlarged lymph nodes are present. Thoracic Vasculature: No vascular abnormality is present. Bones and Chest Wall: Bone windows demonstrate no suspicious lytic or blastic lesions. The visible osseous structures are intact. Degenerative changes are seen inthe spine. Abdomen Liver: Numerous heterogeneously hypoenhancing masses with a target-likeappearance scattered throughout the liver with washout and surrounding hyperemia.For reference, the largest is located in segment 5/8 and measures 4.0 x 4.6x 3.5 cm. Consistent with hepatic metastatic disease. Gallbladder and Bile Ducts: Normal. Spleen: Incidental splenule. Pancreas Pancreas morphology: Normal. Pancreatic lesions: An approximately 3 x 1.6 cm ill-defined hypodensearea noted in the head of pancreas (image 76 series 5 and image 47 [id number]). No associated pancreatic or biliary ductal obstruction or proximalductal dilation. Pancreatic Lesion Resectability Contact with PV/SMV: Contact greater than 180 (image 73 series 5). Contact with most proximal draining jejunal branch: Yes. Contact with IVC: No. Contact with Common Hepatic Artery: None. Contact with Celiac Artery: None. Contact with SMA: None. Contact with first jejunal SMA branch: No. Contact with Aorta: None. Adrenals: Normal. Kidneys: Normal. Gastrointestinal: Oral contrast is noted opacifying the stomach and small bowel loops. The stomach and visualized loops of large and small bowel are unremarkable. Normal appendix. Mesentery/Peritoneum/Retroperitoneum: Multiple enlarged peripancreatic and upper retroperitoneal lymph nodes. There is an approximately 2.3 cm necrotic periportal lymph node in image65 series 5. Abdominal Vasculature: No vascular abnormality is present. Bones: Bone windows demonstrate no suspicious lytic or blastic lesions. The visible osseous structures are intact. Degenerative changes are seen inthe spine. Soft tissues: Normal. PELVIS: Ureters: Normal. Bladder: Normal. Reproductive Organs: The prostate is partially calcified. Vasculature: No vascular abnormality is present. Bones: Polyarticular degenerative changes. Soft tissues: Normal. Impression: 1.Ill-defined hypoenhancing lesion within the head of the pancreas measuring approximately 2.4 x 2.5 x 3.2, could suggest primarypancreatic adenocarcinoma. The lesion is encasing the superior mesenteric artery(>180 degrees) and abutting the confluence of the portal vein. No involvementof the celiac, hepatic artery or superior mesenteric artery. 2.Multiple enlarged and necrotic peripancreatic, upper retroperitonealand ander hepatis lymph nodes, multiple hepatic lesions and pulmonarynodules consistent with metastasis. 3.No evidence of metastatic disease in the pelvis. > Dictated by Barbara Kan MD > Dictated by Single Corner Cutter I, Jasvir Michelle MD have personally reviewed and interpreted this examination/study. > Interpreting Provider: Jasvir Michelle MD on 57:17 AM Chikis Gao MD CT ORDERABLES Final Result * CT Chest W Contrast (01/13/2025 5:24 PM CDT) Anatomical Region Laterality Modality Chest Computed Tomogra phy 01/13/2025 9:19 PM CDT Impressions 01/14/2025 7:17 AM CDT Impression: 1.Ill-defined hypoenhancing lesion within the head of the pancreas measuring approximately 2.4 x 2.5 x 3.2, could suggest primary pancreatic adenocarcinoma. The lesion is encasing the superior mesenteric artery (>180 degrees) and abutting the confluence of the portal vein. No involvement of the celiac, hepatic artery or superior mesenteric artery. 2.Multiple enlarged and necrotic peripancreatic, upper retroperitoneal and ander hepatis lymph nodes, multiple hepatic lesions and pulmonary nodules consistent with metastasis. 3.No evidence of metastatic disease in the pelvis. > Dictated by Barbara Kan MD > Dictated by Single Corner Cutter I, Jasvir Michelle MD have personally reviewed and interpreted this examination/study. > Interpreting Provider: Jasvir Michelle MD on 01/14/2025 7:17 AM Narrative 01/14/2025 7:17 AM CDT PROCEDURE: CT PELVIS W CONTRAST, CT CHEST W CONTRAST, CT PANCREAS WWO CONTRAST, DATE/TIME OF EXAM: 01/13/2025 5:24 PM, LOCATION [facility] INDICATION: K86.89: Pancreatic mass (HCC) ADDITIONAL CLINICAL INFORMATION: Ordering Provider Reason For Exam: mets (accession [id number]), mets (accession [id number]), concern for metastatic malignancy with pancreatic primary (accession [id number]) Technologist Note: Additional: COMPARISON: None. TECHNIQUE: 1.CT of the chest was performed following the uneventful administration of 100 mL of Isovue 370 intravenous contrast according to standard protocol. 2.CT of the abdomen was performed prior to and following the uneventful administration of 100 mL of Isovue 370 intravenous contrast according to a pancreas protocol. 3.CT of the pelvis was performed without contrast according to standard protocol. FINDINGS: CHEST: Lower Neck and Axillae: Postsurgical changes within the left axilla. Lungs: Posterior right lower lobe 1.4 x 2.2 cm subpleural mass. Subpleural nodularity along the posterior aspect of the left lower lobe measuring up to 0.5 cm (series 1 image 54) Trace bilateral pleural effusions with adjacent atelectasis. Heart and Pericardium: The cardiac chambers are normal in size. No pericardial fluid or thickening is present. Mediastinum and [place]: No enlarged lymph nodes are present. Thoracic Vasculature: No vascular abnormality is present. Bones and Chest Wall: Bone windows demonstrate no suspicious lytic or blastic lesions. The visible osseous structures are intact. Degenerative changes are seen in the spine. Abdomen Liver: Numerous heterogeneously hypoenhancing masses with a target-like appearance scattered throughout the liver with washout and surrounding hyperemia. For reference, the largest is located in segment 5/8 and measures 4.0 x 4.6 x 3.5 cm. Consistent with hepatic metastatic disease. Gallbladder and Bile Ducts: Normal. Spleen: Incidental splenule. Pancreas Pancreas morphology: Normal. Pancreatic lesions: An approximately 3 x 1.6 cm ill-defined hypodense area noted in the head of pancreas (image 76 series 5 and image 47 series 11). No associated pancreatic or biliary ductal obstruction or proximal ductal dilation. Pancreatic Lesion Resectability Contact with PV/SMV: Contact greater than 180 (image 73 series 5). Contact with most proximal draining jejunal branch: Yes. Contact with IVC: No. Contact with Common Hepatic Artery: None. Contact with Celiac Artery: None. Contact with SMA: None. Contact with first jejunal SMA branch: No. Contact with Aorta: None. Adrenals: Normal. Kidneys: Normal. Gastrointestinal: Oral contrast is noted opacifying the stomach and small bowel loops. The stomach and visualized loops of large and small bowel are unremarkable. Normal appendix. Mesentery/Peritoneum/Retroperitoneum: Multiple enlarged peripancreatic and upper retroperitoneal lymph nodes. There is an approximately 2.3 cm necrotic periportal lymph node in image 65 series 5. Abdominal Vasculature: No vascular abnormality is present. Bones: Bone windows demonstrate no suspicious lytic or blastic lesions. The visible osseous structures are intact. Degenerative changes are seen in the spine. Soft tissues: Normal. PELVIS: Ureters: Normal. Bladder: Normal. Reproductive Organs: The prostate is partially calcified. Vasculature: No vascular abnormality is present. Bones: Polyarticular degenerative changes. Soft tissues: Normal. Procedure Note Jasvir Michelle MD - 01/14/2025 PROCEDURE: CT PELVIS W CONTRAST, CT CHEST W CONTRAST, CT PANCREAS WWO CONTRAST, DATE/TIME OF EXAM: 01/13/2025 5:24 PM, LOCATION [facility] INDICATION: K86.89: Pancreatic mass (HCC) ADDITIONAL CLINICAL INFORMATION: Ordering Provider Reason For Exam: mets (accession [id number]), mets (accession [id number]), concern for metastatic malignancy with pancreatic primary (accession [id number]) Technologist Note: Additional: COMPARISON: None. TECHNIQUE: 1.CT of the chest was performed following the uneventful administrationof 100 mL of Isovue 370 intravenous contrast according to standard protocol. 2.CT of the abdomen was performed prior to and following the uneventful administration of 100 mL of Isovue 370 intravenous contrast according toa pancreas protocol. 3.CT of the pelvis was performed without contrast according to standard protocol. FINDINGS: CHEST: Lower Neck and Axillae: Postsurgical changes within the left axilla. Lungs: Posterior right lower lobe 1.4 x 2.2 cm subpleural mass. Subpleural nodularity along the posterior aspect of the left lower lobe measuring up to 0.5 cm (series 1 image 54) Trace bilateral pleural effusions with adjacent atelectasis. Heart and Pericardium: The cardiac chambers are normal in size. No pericardial fluid orthickening is present. Mediastinum and [place]: No enlarged lymph nodes are present. Thoracic Vasculature: No vascular abnormality is present. Bones and Chest Wall: Bone windows demonstrate no suspicious lytic or blastic lesions. The visible osseous structures are intact. Degenerative changes are seen inthe spine. Abdomen Liver: Numerous heterogeneously hypoenhancing masses with a target-likeappearance scattered throughout the liver with washout and surrounding hyperemia.For reference, the largest is located in segment 5/8 and measures 4.0 x 4.6x 3.5 cm. Consistent with hepatic metastatic disease. Gallbladder and Bile Ducts: Normal. Spleen: Incidental splenule. Pancreas Pancreas morphology: Normal. Pancreatic lesions: An approximately 3 x 1.6 cm ill-defined hypodensearea noted in the head of pancreas (image 76 series 5 and image 47 ). No associated pancreatic or biliary ductal obstruction or proximalductal dilation. Pancreatic Lesion Resectability Contact with PV/SMV: Contact greater than 180 (image 73 series 5). Contact with most proximal draining jejunal branch: Yes. Contact with IVC: No. Contact with Common Hepatic Artery: None. Contact with Celiac Artery: None. Contact with SMA: None. Contact with first jejunal SMA branch: No. Contact with Aorta: None. Adrenals: Normal. Kidneys: Normal. Gastrointestinal: Oral contrast is noted opacifying the stomach and small bowel loops. The stomach and visualized loops of large and small bowel are unremarkable. Normal appendix. Mesentery/Peritoneum/Retroperitoneum: Multiple enlarged peripancreatic and upper retroperitoneal lymph nodes. There is an approximately 2.3 cm necrotic periportal lymph node in image65 series 5. Abdominal Vasculature: No vascular abnormality is present. Bones: Bone windows demonstrate no suspicious lytic or blastic lesions. The visible osseous structures are intact. Degenerative changes are seen inthe spine. Soft tissues: Normal. PELVIS: Ureters: Normal. Bladder: Normal. Reproductive Organs: The prostate is partially calcified. Vasculature: No vascular abnormality is present. Bones: Polyarticular degenerative changes. Soft tissues: Normal. Impression: 1.Ill-defined hypoenhancing lesion within the head of the pancreas measuring approximately 2.4 x 2.5 x 3.2, could suggest primarypancreatic adenocarcinoma. The lesion is encasing the superior mesenteric artery(>180 degrees) and abutting the confluence of the portal vein. No involvementof the celiac, hepatic artery or superior mesenteric artery. 2.Multiple enlarged and necrotic peripancreatic, upper retroperitonealand ander hepatis lymph nodes, multiple hepatic lesions and pulmonarynodules consistent with metastasis. 3.No evidence of metastatic disease in the pelvis. > Dictated by Barbara Kan MD > Dictated by Single Corner Cutter I, Jasvir Michelle MD have personally reviewed and interpreted this examination/study. > Interpreting Provider: Jasvir Michelle MD on 57:17 AM Chikis Gao MD CT ORDERABLES Final Result * CT Pancreas Wwo Contrast (01/13/2025 5:24 PM CDT) Anatomical Region Laterality Modality Abdomen Computed Tomogra phy 01/13/2025 9:19 PM CDT Impressions 01/14/2025 7:17 AM CDT Impression: 1.Ill-defined hypoenhancing lesion within the head of the pancreas measuring approximately 2.4 x 2.5 x 3.2, could suggest primary pancreatic adenocarcinoma. The lesion is encasing the superior mesenteric artery (>180 degrees) and abutting the confluence of the portal vein. No involvement of the celiac, hepatic artery or superior mesenteric artery. 2.Multiple enlarged and necrotic peripancreatic, upper retroperitoneal and ander hepatis lymph nodes, multiple hepatic lesions and pulmonary nodules consistent with metastasis. 3.No evidence of metastatic disease in the pelvis. > Dictated by Barbara Kan MD > Dictated by Single Corner Cutter I, Jasvir Michelle MD have personally reviewed and interpreted this examination/study. > Interpreting Provider: Jasvir Michelle MD on 01/14/2025 7:17 AM Narrative 01/14/2025 7:17 AM CDT PROCEDURE: CT PELVIS W CONTRAST, CT CHEST W CONTRAST, CT PANCREAS WWO CONTRAST, DATE/TIME OF EXAM: 01/13/2025 5:24 PM, LOCATION [facility] INDICATION: K86.89: Pancreatic mass (HCC) ADDITIONAL CLINICAL INFORMATION: Ordering Provider Reason For Exam: mets (accession [id number]), mets (accession [id number]), concern for metastatic malignancy with pancreatic primary (accession [id number]) Technologist Note: Additional: COMPARISON: None. TECHNIQUE: 1.CT of the chest was performed following the uneventful administration of 100 mL of Isovue 370 intravenous contrast according to standard protocol. 2.CT of the abdomen was performed prior to and following the uneventful administration of 100 mL of Isovue 370 intravenous contrast according to a pancreas protocol. 3.CT of the pelvis was performed without contrast according to standard protocol. FINDINGS: CHEST: Lower Neck and Axillae: Postsurgical changes within the left axilla. Lungs: Posterior right lower lobe 1.4 x 2.2 cm subpleural mass. Subpleural nodularity along the posterior aspect of the left lower lobe measuring up to 0.5 cm (series 1 image 54) Trace bilateral pleural effusions with adjacent atelectasis. Heart and Pericardium: The cardiac chambers are normal in size. No pericardial fluid or thickening is present. Mediastinum and [place]: No enlarged lymph nodes are present. Thoracic Vasculature: No vascular abnormality is present. Bones and Chest Wall: Bone windows demonstrate no suspicious lytic or blastic lesions. The visible osseous structures are intact. Degenerative changes are seen in the spine. Abdomen Liver: Numerous heterogeneously hypoenhancing masses with a target-like appearance scattered throughout the liver with washout and surrounding hyperemia. For reference, the largest is located in segment 5/8 and measures 4.0 x 4.6 x 3.5 cm. Consistent with hepatic metastatic disease. Gallbladder and Bile Ducts: Normal. Spleen: Incidental splenule. Pancreas Pancreas morphology: Normal. Pancreatic lesions: An approximately 3 x 1.6 cm ill-defined hypodense area noted in the head of pancreas (image 76 series 5 and image 47 series 11). No associated pancreatic or biliary ductal obstruction or proximal ductal dilation. Pancreatic Lesion Resectability Contact with PV/SMV: Contact greater than 180 (image 73 series 5). Contact with most proximal draining jejunal branch: Yes. Contact with IVC: No. Contact with Common Hepatic Artery: None. Contact with Celiac Artery: None. Contact with SMA: None. Contact with first jejunal SMA branch: No. Contact with Aorta: None. Adrenals: Normal. Kidneys: Normal. Gastrointestinal: Oral contrast is noted opacifying the stomach and small bowel loops. The stomach and visualized loops of large and small bowel are unremarkable. Normal appendix. Mesentery/Peritoneum/Retroperitoneum: Multiple enlarged peripancreatic and upper retroperitoneal lymph nodes. There is an approximately 2.3 cm necrotic periportal lymph node in image 65 series 5. Abdominal Vasculature: No vascular abnormality is present. Bones: Bone windows demonstrate no suspicious lytic or blastic lesions. The visible osseous structures are intact. Degenerative changes are seen in the spine. Soft tissues: Normal. PELVIS: Ureters: Normal. Bladder: Normal. Reproductive Organs: The prostate is partially calcified. Vasculature: No vascular abnormality is present. Bones: Polyarticular degenerative changes. Soft tissues: Normal. Procedure Note Jasvir Michelle MD - 01/14/2025 PROCEDURE: CT PELVIS W CONTRAST, CT CHEST W CONTRAST, CT PANCREAS WWO CONTRAST, DATE/TIME OF EXAM: 01/13/2025 5:24 PM, LOCATION [facility] INDICATION: K86.89: Pancreatic mass (HCC) ADDITIONAL CLINICAL INFORMATION: Ordering Provider Reason For Exam: mets (accession [id number]), mets (accession [id number]), concern for metastatic malignancy with pancreatic primary (accession [id number]) Technologist Note: Additional: COMPARISON: None. TECHNIQUE: 1.CT of the chest was performed following the uneventful administrationof 100 mL of Isovue 370 intravenous contrast according to standard protocol. 2.CT of the abdomen was performed prior to and following the uneventful administration of 100 mL of Isovue 370 intravenous contrast according toa pancreas protocol. 3.CT of the pelvis was performed without contrast according to standard protocol. FINDINGS: CHEST: Lower Neck and Axillae: Postsurgical changes within the left axilla. Lungs: Posterior right lower lobe 1.4 x 2.2 cm subpleural mass. Subpleural nodularity along the posterior aspect of the left lower lobe measuring up to 0.5 cm (series 1 image 54) Trace bilateral pleural effusions with adjacent atelectasis. Heart and Pericardium: The cardiac chambers are normal in size. No pericardial fluid orthickening is present. Mediastinum and [place]: No enlarged lymph nodes are present. Thoracic Vasculature: No vascular abnormality is present. Bones and Chest Wall: Bone windows demonstrate no suspicious lytic or blastic lesions. The visible osseous structures are intact. Degenerative changes are seen inthe spine. Abdomen Liver: Numerous heterogeneously hypoenhancing masses with a target-likeappearance scattered throughout the liver with washout and surrounding hyperemia.For reference, the largest is located in segment 5/8 and measures 4.0 x 4.6x 3.5 cm. Consistent with hepatic metastatic disease. Gallbladder and Bile Ducts: Normal. Spleen: Incidental splenule. Pancreas Pancreas morphology: Normal. Pancreatic lesions: An approximately 3 x 1.6 cm ill-defined hypodensearea noted in the head of pancreas (image 76 series 5 and image 47 [id number]). No associated pancreatic or biliary ductal obstruction or proximalductal dilation. Pancreatic Lesion Resectability Contact with PV/SMV: Contact greater than 180 (image 73 series 5). Contact with most proximal draining jejunal branch: Yes. Contact with IVC: No. Contact with Common Hepatic Artery: None. Contact with Celiac Artery: None. Contact with SMA: None. Contact with first jejunal SMA branch: No. Contact with Aorta: None. Adrenals: Normal. Kidneys: Normal. Gastrointestinal: Oral contrast is noted opacifying the stomach and small bowel loops. The stomach and visualized loops of large and small bowel are unremarkable. Normal appendix. Mesentery/Peritoneum/Retroperitoneum: Multiple enlarged peripancreatic and upper retroperitoneal lymph nodes. There is an approximately 2.3 cm necrotic periportal lymph node in image65 series 5. Abdominal Vasculature: No vascular abnormality is present. Bones: Bone windows demonstrate no suspicious lytic or blastic lesions. The visible osseous structures are intact. Degenerative changes are seen inthe spine. Soft tissues: Normal. PELVIS: Ureters: Normal. Bladder: Normal. Reproductive Organs: The prostate is partially calcified. Vasculature: No vascular abnormality is present. Bones: Polyarticular degenerative changes. Soft tissues: Normal. Impression: 1.Ill-defined hypoenhancing lesion within the head of the pancreas measuring approximately 2.4 x 2.5 x 3.2, could suggest primarypancreatic adenocarcinoma. The lesion is encasing the superior mesenteric artery(>180 degrees) and abutting the confluence of the portal vein. No involvementof the celiac, hepatic artery or superior mesenteric artery. 2.Multiple enlarged and necrotic peripancreatic, upper retroperitonealand ander hepatis lymph nodes, multiple hepatic lesions and pulmonarynodules consistent with metastasis. 3.No evidence of metastatic disease in the pelvis. > Dictated by Barbara Kan MD > Dictated by Single Corner Cutter I, Jasvir Michelle MD have personally reviewed and interpreted this examination/study. > Interpreting Provider: Jasvir Michelle MD on :17 AM us Chikis Gao MD CT ORDERABLES Final Result * BLOOD TYPE VERIFICATION (01/13/2025 9:09 AM CDT) ABO Rh A POS 01/13/2025 11:07 AM [facility] Blood Bank BLOOD SPECIMEN / Unknown Lab Venipuncture / Unknown 01/13/2025 9:09 AM CDT 01/13/2025 9:36 AM CDT Chikis Gao MD LAB - BLOOD BANK ORDERABLES Fi nal Result [facility] [address] [place] [address], [facility] [phone] * (ABNORMAL) RENAL FUNCTION PANEL (01/13/2025 7:09 AM CDT) BUN 12 7 - 26 mg/dL 01/13/2025 8:28 AM [facility] Creatinine 0.57(L) 0.71 - 1.16 mg/dL 01/13/2025 8:28 AM [facility] Sodium 135(L) 136 - 145 mmol/L 01/13/2025 8:28 AM [facility] Potassium 4.0 3.5 - 4.5 mmol/L 01/13/2025 8:28 AM [facility] Chloride 103 98 - 107 mmol/L 01/13/2025 8:28 AM [facility] CO2 25 22 - 29 mmol/L 01/13/2025 8:28 AM [facility] Glucose 103(H) 70 - 99 mg/dL 01/13/2025 8:28 AM [facility] Albumin 2.2(L) 3.4 - 5.0 g/dL 01/13/2025 8:28 AM [facility] Calcium 8.5 8.4 - 10.2 mg/dL 01/13/2025 8:28 AM [facility] Phosphorus 3.1 2.8 - 5.1 mg/dL 01/13/2025 8:28 AM [facility] Anion Gap 7 6 - 16 01/13/2025 8:28 AM [facility] BUN/Creatinine Ratio 21 7 - 23 01/13/2025 8:28 AM [facility] Osmolality Calculated 280 275 - 295 mOsm/kg 01/13/2025 8:28 AM [facility] eGFR by CKD-EPI >90 >=90 mL/min/1.7 3 m2 01/13/2025 8:28 AM [facility] Comment:Estimated Glomerular Filtration Rate (eGFR) calculated using the CKD-EPI Creatinine Equation (2020), per the National Kidney Foundation and [place] [employer]ph[employer] recommendations. Blood BLOOD SPECIMEN / Unknown Lab Venipuncture / Unknown 01/13/2025 7:09 AM CDT 01/13/2025 7:42 AM CDT us Diana Franco MD LAB - CHEMISTRY ORDERABLES Fi nal Result Performing Organization Address City/[facility]/ZIP Co de Phone Number [address] [address], [place] [phone] * (ABNORMAL) FOLATE (01/13/2025 7:09 AM CDT) Folate 5.9(L) 7.0 - 31.4 ng/mL 01/13/2025 9:00 AM [facility] Blood BLOOD SPECIMEN / Unknown Lab Venipuncture / Unknown 01/13/2025 7:09 AM CDT 01/13/2025 7:42 AM CDT us Diana Franco MD LAB - CHEMISTRY ORDERABLES Fi nal Result [address] [address], [place] [phone] * (ABNORMAL) VITAMIN B12 (01/13/2025 7:09 AM CDT) Vitamin B12 1,094(H) 213 - 816 pg/mL 01/13/2025 9:00 AM [facility] Blood BLOOD SPECIMEN / Unknown Lab Venipuncture / Unknown 01/13/2025 7:09 AM CDT 01/13/2025 7:42 AM CDT Diana Franco MD LAB - CHEMISTRY ORDERABLES Fi nal Result Performing Organization Address City/[facility]/ZIP Co de Phone Number [facility] [address] [address], [facility] [phone] * CANCER ANTIGEN (CA) 19-9 (01/13/2025 7:07 AM CDT) CA 19-9 3 <=35 U/mL 01/14/2025 4:33 PM CDT [email or web address] ([facility]) Comment: INTERPRETIVE INFORMATION: Cancer Antigen-GI (CA 19-9) This test uses Micah CA 19-9 electrochemiluminescent immunoassay. Results obtained with different test methods or kits cannot be used interchangeably. CA 19-9 value is useful in monitoring pancreatic, hepatobiliary, gastric, hepatocellular, and colorectal cancer. CA 19-9 value, regardless of level, should not be interpreted as absolute evidence of the presence or absence of malignant disease. Performed By: [employer] [address] [place] [address] Wealth Management Manager: Russell Roblero MD, PhD CLIA Number: [id number] Blood BLOOD SPECIMEN / Unknown Lab Venipuncture / Unknown 01/13/2025 7:07 AM CDT 01/13/2025 7:30 AM CDT Diana Franco MD LAB - CHEMISTRY ORDERABLES Fi nal Result Performing Organization Address City/[facility]/ZIP Co de Phone Number [facility]) [address] [place], [place] [address] * TYPE + SCREEN PANEL (01/13/2025 7:07 AM CDT) Antibody Screen NEG 9:[address] [facility] ABO Rh A POS 01/13/2025 9:[address] [facility] Blood Bank BLOOD SPECIMEN / Unknown Lab Venipuncture / Unknown 01/13/2025 7:07 AM CDT 01/13/2025 8:12 AM CDT us Diana Franco MD LAB - BLOOD BANK ORDERABLES F inal Result [facility] [address] [place] [address], [facility] [phone] * (ABNORMAL) CBC W/O DIFFERENTIAL (01/13/2025 7:07 AM CDT) [facility] WBC 8.7 4.0 - 10.7 x10E9/L 01/13/2025 7:45 AM [facility] RBC Count 3.65(L) 4.30 - 5.80 x10E12/L 01/13/2025 7:45 AM [facility] Hemoglobin 9.1(L) 13.3 - 17.5 g/dL 01/13/2025 7:45 AM [facility] Hematocrit 28.6(L) 38.7 - 51.1 % 01/13/2025 7:45 AM [facility] MCV 78.4(L) 80.0 - 98.0 fL 01/13/2025 7:45 AM [facility] MCH 24.9(L) 26.7 - 33.6 pg 01/13/2025 7:45 AM [facility] MCHC 31.8 31.7 - 36.3 g/dL 01/13/2025 7:45 AM [facility] RDW-CV 13.6 11.3 - 14.8 % 01/13/2025 7:45 AM [facility] Platelet Count 475(H) 150 - 420 x10E9/L 01/13/2025 7:45 AM [facility] MPV 10.3 7.8 - 11.4 fL 01/13/2025 7:45 AM [facility] Blood BLOOD SPECIMEN / Unknown Lab Venipuncture / Unknown 01/13/2025 7:07 AM CDT 01/13/2025 7:38 AM CDT us Diana Franco MD LAB - HEMATOLOGY ORDERABLES F inal Result Performing Organization Address City/[facility]/ZIP Co de Phone Number [address] [address], [facility] [phone] * (ABNORMAL) IRON + TRANSFERRIN PANEL (01/13/2025 7:07 AM CDT) Iron 11(L) 50 - 175 ug/dL 01/13/2025 8:[address] [facility] Transferrin 117(L) 174 - 382 mg/dL 01/13/2025 8:19 AM CDT [facility] Transferrin Saturation % 8(L) 16 - 50 % 01/13/2025 8:19 AM CDT [facility] TIBC Calculated 146(L) 240 - 450 ug/dL 01/13/2025 8:19 AM CDT [facility] Blood BLOOD SPECIMEN / Unknown Lab Venipuncture / Unknown 01/13/2025 7:07 AM CDT 01/13/2025 7:30 AM CDT us Diana Franco MD LAB - CHEMISTRY ORDERABLES Fi nal Result Performing Organization Address [facility]/ZIP Co de Phone Number [address] [address], [facility] [phone] * (ABNORMAL) FERRITIN (01/13/2025 7:07 AM CDT) Ferritin 2,200(H) 22 - 275 ng/mL 01/13/2025 9:[address] [facility] Comment:Result obtained by hebert hdz. Blood BLOOD SPECIMEN / Unknown Lab Venipuncture / Unknown 01/13/2025 7:07 AM CDT 01/13/2025 7:30 AM CDT Diana Franco MD LAB - CHEMISTRY ORDERABLES Fi nal Result Performing Organization Address City/[facility]/ZIP Co de Phone Number [address] [address], [place] [phone] * URINALYSIS REFLEX TO MICROSCOPIC NO CULTURE (01/12/2025 10:38 AM CDT) Color UA Yellow Yellow, Straw 01/12/2025 11:02 AM [facility] Clarity UA Clear Clear 01/12/2025 11:02 AM [facility] Glucose UA Normal Normal 01/12/2025 11:02 AM [facility] Bilirubin UA Negative Negative 01/12/2025 11:02 AM [facility] Ketone UA Negative Negative 01/12/2025 11:02 AM [facility] Specific [place] UA 1.006 1.005 - 1.030 01/12/2025 11:02 AM [facility] Blood UA Negative Negative 01/12/2025 11:02 AM [facility] pH UA 7.0 5.0 - 8.0 01/12/2025 11:02 AM [facility] Protein UA Negative Negative 01/12/2025 11:02 AM [facility] Urobilinogen UA Normal Normal mg/dL 01/12/2025 11:02 AM [facility] Nitrite UA Negative Negative 01/12/2025 11:02 AM [facility] Leukocyte Esterase UA Negative Negative 01/12/2025 11:02 AM [facility] Urine Microscopy Urine microscopy not indicated 01/12/2025 11:02 AM [facility] Urine URINE SPECIMEN OBTAINED BY CLEAN CATCH PROCEDURE / Unknown Collection / Unknown 01/12/2025 10:38 AM CDT 01/12/2025 10:53 AM [facility] us Diana Franco MD LAB - URINALYSIS ORDERABLES F inal Result [facility] [address] [place] [address], [facility] [phone] * (ABNORMAL) COMPREHENSIVE METABOLIC PANEL (01/12/2025 9:15 AM T) BUN 7 7 - 26 mg/dL 01/12/2025 10:22 AM [facility] Creatinine 0.55(L) 0.71 - 1.16 mg/dL 01/12/2025 10:22 AM [facility] Sodium 136 136 - 145 mmol/L 01/12/2025 10:22 AM [facility] Potassium 3.7 3.5 - 4.5 mmol/L 01/12/2025 10:22 AM [facility] Chloride 106 98 - 107 mmol/L 01/12/2025 10:22 AM [facility] CO2 23 22 - 29 mmol/L 01/12/2025 10:22 AM [facility] Glucose 87 70 - 99 mg/dL 01/12/2025 10:22 AM [facility] Calcium 8.3(L) 8.4 - 10.2 mg/dL 01/12/2025 10:22 AM [facility] Protein Total 6.4 6.0 - 8.3 g/dL 01/12/2025 10:22 AM [facility] Albumin 2.1(L) 3.4 - 5.0 g/dL 01/12/2025 10:22 AM [facility] Bilirubin Total 0.7 0.2 - 1.2 mg/dL 01/12/2025 10:22 AM [facility] Alkaline Phosphatase 117 40 - 150 U/L 01/12/2025 10:22 AM [facility] ALT 33 5 - 55 U/L 01/12/2025 10:22 AM [facility] AST 23 5 - 34 U/L 01/12/2025 10:22 AM [facility] [facility] Anion Gap 7 6 - 16 01/12/2025 10:22 AM [facility] BUN/Creatinine Ratio 13 7 - 23 01/12/2025 10:22 AM [facility] Osmolality Calculated 279 275 - 295 mOsm/kg 01/12/2025 10:22 AM [facility] Albumin/Globulin Ratio 0.5(L) 1.1 - 2.3 01/12/2025 10:22 AM [facility] eGFR by CKD-EPI >90 >=90 mL/min/1.7 3 m2 01/12/2025 10:22 AM [facility] Comment:Estimated Glomerular Filtration Rate (eGFR) calculated using the CKD-EPI Creatinine Equation (2020), per the [employer] and [place] [employer] recommendations. Blood BLOOD SPECIMEN / Unknown Lab Venipuncture / Unknown 01/12/2025 9:15 AM CDT 01/12/2025 9:54 AM CDT us Ana Olivarez MD LAB - CHEMISTRY ORDERABLES F inal Result [address] [address], [place] [phone] * PHOSPHORUS BLOOD (01/12/2025 9:15 AM CDT) Phosphorus 3.1 2.8 - 5.1 mg/dL 01/12/2025 10:22 AM CDT [facility] Blood BLOOD SPECIMEN / Unknown Lab Venipuncture / Unknown 01/12/2025 9:15 AM CDT 01/12/2025 9:54 AM CDT us Ana Olivarez MD LAB - CHEMISTRY ORDERABLES F inal Result Performing Organization Address [facility]/ZIP Co de Phone Number [address] [address], [place] [phone] * MAGNESIUM BLOOD (01/12/2025 9:15 AM CDT) Magnesium 1.9 1.6 - 2.6 mg/dL 01/12/2025 10:22 AM CDT [facility] Blood BLOOD SPECIMEN / Unknown Lab Venipuncture / Unknown 01/12/2025 9:15 AM CDT 01/12/2025 9:54 AM CDT us Ana Olivarez MD LAB - CHEMISTRY ORDERABLES F inal Result [address] [address], [place] [phone] * (ABNORMAL) PT-INR (01/12/2025 9:14 AM CDT) PT 16.6(H) 12.1 - 14.8 Seconds 01/12/2025 10:17 AM [facility] INR 1.4 See Comment 01/12/2025 10:17 AM [facility] Comment:The suggested therap eutic range for standard coumadin (warfarin) therapy is an INR of 2.0-3.0. For high-risk patients (Mechanical Mitral Valve Prosthesis, etc.), the suggested prophylactic therapeutic range is an INR of 2.5-3.5. Blood BLOOD SPECIMEN / Unknown Lab Venipuncture / Unknown 01/12/2025 9:14 AM CDT 01/12/2025 9:54 AM CDT us Ana Olivaerz MD LAB - COAGULATION ORDERABLES Final Result [facility] [address] [place] [address], [facility] [phone] * (ABNORMAL) CBC W AUTO DIFFERENTIAL (01/12/2025 9:14 AM CDT) WBC 7.7 4.0 - 10.7 x10E9/L 01/12/2025 9:58 AM [facility] RBC Count 3.49(L) 4.30 - 5.80 x10E12/L 01/12/2025 9:58 AM [facility] Hemoglobin 8.9(L) 13.3 - 17.5 g/dL 01/12/2025 9:58 AM [facility] Hematocrit 28.0(L) 38.7 - 51.1 % 01/12/2025 9:58 AM [facility] MCV 80.2 80.0 - 98.0 fL 01/12/2025 9:58 AM [facility] MCH 25.5(L) 26.7 - 33.6 pg 01/12/2025 9:58 AM [facility] MCHC 31.8 31.7 - 36.3 g/dL 01/12/2025 9:58 AM [facility] RDW-CV 13.7 11.3 - 14.8 % 01/12/2025 9:58 AM [facility] Platelet Count 445(H) 150 - 420 x10E9/L 01/12/2025 9:58 AM [facility] MPV 10.2 7.8 - 11.4 fL 01/12/2025 9:58 AM [facility] Neutrophil % 73.9 41.0 - 74.0 % 01/12/2025 9:58 AM [facility] Lymphocyte % 9.6(L) 17.0 - 47.0 % 01/12/2025 9:58 AM [facility] Monocyte % 10.4 3.0 - 11.0 % 01/12/2025 9:58 AM [facility] Eosinophil % 5.1 0.0 - 7.0 % 01/12/2025 9:58 AM [facility] Basophil % 0.5 0.0 - 1.6 % 01/12/2025 9:58 AM [facility] Immature Granulocytes % 0.5 0.0 - 1.0 % 01/12/2025 9:58 AM [facility] Neutrophil Absolute 5.67 1.60 - 7.50 x10E9/L 01/12/2025 9:58 AM [facility] Lymphocyte Absolute 0.74(L) 1.00 - 4.40 x10E9/L 01/12/2025 9:58 AM [facility] Monocyte Absolute 0.80 0.15 - 1.00 x10E9/L 01/12/2025 9:58 AM [facility] Eosinophil Absolute 0.39 0.00 - 0.60 x10E9/L 01/12/2025 9:58 AM [facility] Basophil Absolute 0.04 0.00 - 0.13 x10E9/L 01/12/2025 9:58 AM [facility] Blood BLOOD SPECIMEN / Unknown Lab Venipuncture / Unknown 01/12/2025 9:14 AM CDT 01/12/2025 9:54 AM CDT us Ana Olivarez MD LAB - HEMATOLOGY ORDERABLES Final Result [facility] [address] [place] [address], [place] [phone] from Last 3 Months Insurance [facility] Advance Directives * Full Code (Latest Code Status on File) Date Activated Date Inactivated Comments 01/12/2025 7:46 AM 01/13/2025 8:28 PM
--- OUTSIDE RECORDS SUMMARY | 2025-01-15 12:34 | XMS_ITS | Encounter Summary ---
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 Role Phone Unavailable Primary Care Provider Unavailabl e Reason for Referral * Radiology Services (Routine) - Pending Review Specialty Diagnoses / Procedures Referred By Contre t Referred To Contact Diagnoses Liver masses Procedures CT LIVER BIOPSY([id number]) Heather Willoughby PA [address] [place] [address] Phone: tel: fax: Referral ID Status Reason Start Date Expiration Date V isits Requested Visits Authorized [id number] Pending Review 01/27/2025 01/27/2026 1 1 * Consultation (Routine) - Closed Specialty Diagnoses / Procedures Referred By Contact Referred To Contact Transitional Care Unit / Transitional Care Diagnoses Pancreatic mass (HCC) Chikis Gao MD [address] [place] [address] Phone: tel: fax: Transitional Care at [facility] [address] [place] [phone] Phone: tel: fax: Referral ID Status Reason Start Date Expiration Date V isits Requested Visits Authorized [id number] Closed Specialty Services Required 01/13/2025 01/13/2026 1 1 * (Routine) - Pending Review Specialty Diagnoses / Procedures Referred By Contac t Referred To Contact Diagnoses Pancreatic mass (HCC) Procedures REFERRAL FOR DME JUSTIFICATION Chikis Gao MD [address] [place] [address] Phone: tel: fax: Referral ID Status Reason Start Date Expiration Date V isits Requested Visits Authorized [id number] Pending Review 01/13/2025 01/13/2026 1 1 * Durable Medical Equipment (Routine) - Pending Review Specialty Diagnoses / Procedures Referred By Contac t Referred To Contact Diagnoses Pancreatic mass (HCC) Chikis Gao MD [address] [place] [address] Phone: tel: fax: Referral ID Status Reason Start Date Expiration Date Visits Requested Visits Authorized [id number] Pending Review Specialty Services Required 01/13/2025 01/13/2026 1 1 * Evaluate & Treat (Routine) - Pending Review Specialty Diagnoses / Procedures Referred By Contac t Referred To Contact Oncology-Medical Diagnoses Pancreatic mass (HCC) Chikis Gao MD [address] [place] [address] Phone: tel: fax: [facility] - Hematology/Oncology [address] [place] [phone] Phone: tel: fax: Referral ID Status Reason Start Date Expiration Date Visits Requested Visits Authorized [id number] Pending Review Specialty Services Required 01/13/2025 01/13/2026 1 1 Scheduling Instructions Suspected pancreatic malignancy with mets to liver * Evaluate & Treat (Routine) - Closed Specialty Diagnoses / Procedures Referred By Contac t Referred To Contact Radiology Diagnoses Cancer, metastatic to liver (HCC) Chikis Gao MD [address] [place] [address] [place] [address] Phone: tel: fax: [facility] IVR [address] [place] [address] Phone: tel: fax: Referral ID Status Reason Start Date Expiration Date V isits Requested Visits Authorized [id number] Closed Specialty Services Required 01/13/2025 01/13/2026 1 1 Scheduling Instructions Referral for liver biopsy Reason for Visit * Auth/Cert (Routine) Specialty Diagnoses / Procedures Referred By Zakiya miller Referred To Contact Diagnoses Pancreatic Mass Referral ID Status Reason Start Date Expiration Date Visits Re quested Visits Authorized [id number] 1 1 Encounter Details Date Type Department Care Team (Latest Contact Info) Description 01/12/2025 6:25 AM CDT - 01/13/2025 7:23 PM CDT Hospital Encounter [facility] 6S ACUTE [address] [place] [phone] Ana Olivarez MD [address] [place] [address] Diana Franco MD [address] [place] [address] Chikis Gao MD [address] [place] [address] Gastroenterology Discharge Disposition: Home or Self Care Social History Tobacco Use Types Packs/Day Years Used Date Smoking Tobacco: Former Cigarettes 1 20 Tobacco Cessation:Counseling Given: Not Answered Alcohol Use [...] and heating? Not hard at all 01/12/2025 [place] [facility] - Occupational Stress [...] money to buy more. Never true 01/13/20 Within the past 12 months, t he [...] any time in the past 12 [facility], were you homeless or living in a half-way (including now)? No 01/12/2025 Sex and Gender Information Value Date Recorded Sex Assigned at Not on file Legal Sex Male 12:45 AM CDT Gender Identity Not on file Sexual Orientation Not on file documented as of this encounter Last Filed Vital Signs Vital Sign Reading [...] AM CDT Body Mass Index - - documented in this encounter Functional Status * Question Answer Date of Assessment Author Q1: How often do you have a drink containing alcohol? Never 01/12/2025 6:33 AM [place] Ai Rowan R N Q2: How many drinks containing alcohol do you have on a typical day when you are drinking? Patient does not drink 01/12/2025 6:33 AM MOONT Ai Rowan RN Q3: How often do you have six or more drinks on one occasion? Never 01/12/2025 6:33 AM [place] Ai Rowan R N * Audit-C Score Answer Date of Assessment Author 0 01/12/2025 6:33 AM Ai Gipson RN * Is person deaf or have serious [...] Ai Gipson RN documented in this encounter Discharge Summaries * Irina Gale RN - 01/13/2025 7:12 PM CDT Patient discharge and follow up education done with patient and patient (Milton) at bedside. Patient taken off unit to [facility] via wheelchair. Patient IV lines removed, IV site absent of redness, swelling and bruising. Patient also denies any pain currently. Patient medication delivered to bedside. Patient things, walker and medication taken with him via wheelchair. * Franki Morfin MD - 01/13/2025 3:44 PM CDT Images from the original note were not included. [facility] Internal Medicine Discharge Summary Name: Melecio Lim Room/Bed: 646/01 : 1965 59 year old PCP: No primary care provider on file. Admit Date/Time: 01/12/2025 6:25 AM LOS: 1 Date of discharge: 01/13/2025 Code status at time of discharge: Full Code Discharge Diagnosis Pancreatic mass (HCC) (POA: Yes) Cancer, metastatic to liver (HCC) (POA: Yes) Lymphadenopathy, abdominal (POA: Yes) Epigastric pain (POA: Yes) Elevated alkaline phosphatase level (POA: Yes) Hypoalbuminemia (POA: Yes) Dysuria (POA: Yes) Normocytic anemia (POA: Yes) Gastroesophageal reflux disease without esophagitis (POA: Yes) Liver masses (POA: Unknown) Rib pain (POA: Unknown) Hospital Course Jonathon Lim is a 59 year old man with PMHx of melanoma s/p removal, who presented to [facility] from OSH for higher level of care given concern for new pancreatic and liver malignancy. GI was consulted and they recommended liver biopsy with IR. IR was consulted and would perform a biopsy outpatient. Heme onc was consulted and recommended CT pancreas. CT pancreas was performed. The patient was discharged with outpatient IR and oncology follow up. Problem List/Plan of Care at Time of Discharge Assessment & Plan Pancreatic mass (HCC) Lymphadenopathy, abdominal Epigastric pain Liver masses The patient presented to the OSH with [...] 1g Q8H - Oxy 5/10 Q4H PRN Dysuria Dubois UA, will CTM Normocytic anemia Iron panel and ferritin suggestive of mixed LALY with anemia of chronic disease. Will CTM. Gastroesophageal reflux disease without esophagitis Continue home pantoprazole Rib pain Suspect secondary to a work related injury several weeks ago, will closely follow CT results. Follow-up Summary Future Appointments Around January 27, 2025 Imaging: CT LIVER BIOPSY([id number] & [id number]) As directed Outpatient Referral: AMB REFERRAL FOR DME As directed Pathology Cytology: PATHOLOGY TISSUE As directed Outpatient Referral: Ref to IVR - [facility] Interventional Rad As directed Outpatient Referral: Ref to Oncology - [facility] As directed Outpatient Referral: REF TO [facility] Pineda Medication Updates: Starting short course of oxycodone for pain until he follows up with the bridge clinic Post discharge follow up tasks/Incidental Findings: See interventional radiology and schedule a biopsy See oncology after obtaining biopsy Discharge Destination: Home. Discharge Medications Allergies[1] Medication List START taking these medications folic acid 1 MG tablet Commonly known as: Folvite Take 1 (one) tablet by mouth once daily oxyCODONE (immediate release) 5 MG tablet Commonly known as: Roxicodone Take 1 (one) tablet by mouth every 4 hours as needed pantoprazole EC 40 MG tablet Commonly known as: Protonix Take 1 (one) tablet by mouth once daily Start taking on: January 14, 2025 polyethylene glycol 3350 17 GM/SCOOP powder Commonly known as: Miralax Take 17 (seventeen) g by mouth once daily Start taking on: January 14, 2025 sennosides 8.6 MG tablet Commonly known as: Senokot Take 1 (one) tablet by mouth once daily for 10 days Start taking on: January 14, 2025 Where to Get Your Medications These medications were sent to [facility] [address] [phone] Hours: Mon-Fri 8AM-6PM; Sat 9AM-1PM folic acid 1 MG tablet oxyCODONE (immediate release) 5 MG tablet pantoprazole EC 40 MG tablet polyethylene glycol 3350 17 GM/SCOOP powder sennosides 8.6 MG tablet Physical Exam Recent Vitals: Temp: [98.1 ??F (36.7 ??C)-98.7 ??F (37.1 ??C)] 98.3 ??F (36.8 ??C) Pulse: [80-106] 80 Resp: [18-20] 18 BP: (107-144)/(67-90) 123/67 Weight change: Intake/Output Summary (Last 24 hours) at 01/13/2025 1601 Last data filed at 01/13/2025 0631 Gross per 24 hour Intake 1317 ml Output 2375 ml Net -1058 ml Physical Exam: Gen: Alert, cooperative, in no acute distress HEENT: NC/AT, EOMI, no nasal drainage Neck: Supple CV: Regular rate and rhythm. No murmurs appreciated Lungs: Clear to auscultation bilaterally Abdomen: BS+, soft, nondistended, nontender Extremities: Nontender with normal ROM Skin: Warm, dry Neuro: Alert and oriented to person, place, time and situation Psych: Mood appropriate Ext: Left lower ribs tender to palpation Radiology No results found. Notable Labs Laboratory Data Recent Labs Component Name 01/13/25 0701/12/2514 WBC 8.7 7.7 HGB 9.1* 8.9* HCT 28.6* 28.0* PLTCOUNT 475* 445* MCV 78.4* 80.2 Recent Labs Component Name 01/12/25 0914 PT 16.6* INR 1.4 Recent Labs Component Name 01/13/25 0709 01/12/25 0915 NA 135* 136 POTASSIUM 4.0 3.7 CL 103 106 CO2 25 23 BUN 12 7 CREATININE 0.57* 0.55* Recent Labs Component Name 01/13/25 0709 01/12/25 0915 CALCIUM 8.5 8.3* PHOS 3.1 3.1 Recent Labs Component Name 01/13/25 0709 01/12/25 0915 PROT - 6.4 ALB 2.2* 2.1* ALKPHOS - 117 AST - 23 ALT - 33 TBILI - 0.7 No results for input(s): CKTOTAL, CKMBCK2, TROPONINI in the last 65450 hours. No results for input(s): VANCDELISADM, VANCTROUGH in the last 01217 hours. Microbiology Results (Displays last 21 days for this encounter ONLY) No results found for the last 504 hours. Patient Discharge Instructions Discharge Instructions A Note From Your Doctors: Mr. Melecio Lim, You were admitted to the hospital for evaluation of the mass that were found on your liver and pancreas. We got a CT scan and will have you follow up outpatient with our interventional radiologists for a biopsy and with our cancer doctors. Wound Care/Activity Instructions: MEDICATIONS: Resume your home medications other than those changed, removed, or added as detailed below. Current Discharge Medication List START taking these medications Instructions Authorizing Provider folic acid 1 MG tablet Commonly known as: Folvite Quantity Dispensed: 90 tablet Take 1 (one) tablet by mouth once daily Franki Morfin oxyCODONE (immediate release) 5 MG tablet Commonly known as: Roxicodone Quantity Dispensed: 12 tablet Take 1 (one) tablet by mouth every 4 hours as needed Franki Morfin pantoprazole EC 40 MG tablet Commonly known as: Protonix Quantity Dispensed: 90 tablet Start taking on: January 14, 2025 Take 1 (one) tablet by mouth once daily Franki Morfin polyethylene glycol 3350 17 g packet Commonly known as: Miralax Quantity Dispensed: 10 packet Start taking on: January 14, 2025 Take 17 (seventeen) g by mouth once daily Franki Morfin sennosides 8.6 MG tablet Commonly known as: Senokot Quantity Dispensed: 10 tablet Start taking on: January 14, 2025 Take 1 (one) tablet by mouth once daily for 10 days Franki Morfin If you have any questions about your medications, please be sure to ask the pharmacy when you cone picker your prescription. You may also call your primary provider to ask if you should be taking your medication. FOLLOW-UP: It is important that you follow-up with all appointments that have been made on your behalf. These appointments include: Future Appointments As directed Outpatient Referral: AMB REFERRAL FOR DME As directed Outpatient Referral: Ref to IVR - [facility] Interventional Rad As directed Outpatient Referral: Ref to Oncology - [facility] Additionally, we have requested appointments with the following: Please follow up with our bridge clinic to coordinate care after you leave the hospital. You will be contacted within 3 days of discharge from the hospital by the outsole scheduler regarding your follow up appointments, as listed above, after leaving the hospital. If you are not contacted pleasecall the number . If a follow-up with your primary care provider has not been scheduled, please schedule an appointment to follow-up on your hospitalization. If there is a conflict, please call the clinic ahead of time and reschedule the appointment. CONCERNING SYMPTOMS: When to call your healthcare provider: Call your healthcare provider immediately if you have any of the following: - Dizziness - Weakness in arms/legs - Fever of 101??F or higher - Shaking chills - Intractable nausea and vomiting - Severe headache - Confusion/altered mental status - Seizures (convulsions) If you are unable to reach your primary provider, please go to the nearest emergency room or call EMS ([phone]). Regards, Internal Medicine Department [address] [address] This discharge summary is not final until attested by the attending physician. Franki Morfin MD [facility] 01/13/2025 4:01 PM [1] No Known Allergies Cosigned by Chikis Gao MD at 01/13/2025 10:04 PM CDT Associated attestation - Chikis Gao MD - 01/13/2025 10:04 PM CDT ATTENDING ATTESTATION My in-person evaluation of the patient occurred on 01/13/2025. The patient was discussed with the care team and I have independently verified pineda details in the history. I have reviewed the patient's current medication regimen and results of recent diagnostic testing in the electronic medical record. I have reviewed the resident's note and agree with the documented assessment and plan, except any changes as noted in my addendum. I have reviewed the problem list and specifically note that the patient is presently being treated and evaluated for: Pancreatic mass (HCC) (POA: Yes) Cancer, metastatic to liver (HCC) (POA: Yes) Lymphadenopathy, abdominal (POA: Yes) Epigastric pain (POA: Yes) Elevated alkaline phosphatase level (POA: Yes) Hypoalbuminemia (POA: Yes) Dysuria (POA: Yes) Normocytic anemia (POA: Yes) Gastroesophageal reflux disease without esophagitis (POA: Yes) Liver masses (POA: Unknown) Rib pain (POA: Unknown) Thirty-five minutes were spent on this discharge, including direct patient care; counseling at bedside; coordination of care with nursing staff/Orange Picking Supervisor; and preparation of the discharge summary and other records. Electronically Signed Chikis Gao MD 01/13/2025 10:04 PM documented in this encounter Discharge Instructions * Discharge Instructions* Franki Morfin MD - 01/13/2025 3:10 PM CDT A Note From Your Doctors: Kenia Melecio Lim, You were admitted to the hospital for evaluation of the mass that were found on your liver and pancreas. We got a CT scan and will have you follow up outpatient with our interventional radiologists for a biopsy and with our cancer doctors. Wound Care/Activity Instructions: MEDICATIONS: Resume your home medications other than those changed, removed, or added as detailed below. Current Discharge Medication List START taking these medications Instructions Authorizing Provider folic acid 1 MG tablet Commonly known as: Folvite Quantity Dispensed: 90 tablet Take 1 (one) tablet by mouth once daily Franki Morfin oxyCODONE (immediate release) 5 MG tablet Commonly known as: Roxicodone Quantity Dispensed: 12 tablet Take 1 (one) tablet by mouth every 4 hours as needed Franki Morfin pantoprazole EC 40 MG tablet Commonly known as: Protonix Quantity Dispensed: 90 tablet Start taking on: January 14, 2025 Take 1 (one) tablet by mouth once daily Franki Morfin polyethylene glycol 3350 17 g packet Commonly known as: Miralax Quantity Dispensed: 10 packet Start taking on: January 14, 2025 Take 17 (seventeen) g by mouth once daily Franki Morfin sennosides 8.6 MG tablet Commonly known as: Senokot Quantity Dispensed: 10 tablet Start taking on: January 14, 2025 Take 1 (one) tablet by mouth once daily for 10 days Franki Morfin If you have any questions about your medications, please be sure to ask the pharmacy when you cone picker your prescription. You may also call your primary provider to ask if you should be taking your medication. FOLLOW-UP: It is important that you follow-up with all appointments that have been made on your behalf. These appointments include: Future Appointments As directed Outpatient Referral: AMB REFERRAL FOR DME As directed Outpatient Referral: Ref to IVR - [facility] Interventional Rad As directed Outpatient Referral: Ref to Oncology - [facility] Additionally, we have requested appointments with the following: Please follow up with our bridge clinic to coordinate care after you leave the hospital. You will be contacted within 3 days of discharge from the hospital by the outsole scheduler regarding your follow up appointments, as listed above, after leaving the hospital. If you are not contacted pleasecall the number . If a follow-up with your primary care provider has not been scheduled, please schedule an appointment to follow-up on your hospitalization. If there is a conflict, please call the clinic ahead of time and reschedule the appointment. CONCERNING SYMPTOMS: When to call your healthcare provider: Call your healthcare provider immediately if you have any of the following: - Dizziness - Weakness in arms/legs - Fever of 101??F or higher - Shaking chills - Intractable nausea and vomiting - Severe headache - Confusion/altered mental status - Seizures (convulsions) If you are unable to reach your primary provider, please go to the nearest emergency room or call EMS ([phone]). Regards, Internal Medicine Department [address] [address] documented in this encounter Medications at Time of Discharge folic acid (Folvite) 1 MG tablet Take 1 (one) tablet by mouth once daily 90 tablet 01/13/2025 4:27 PM CDT 01/13/2025 oxyCODONE, immediate release, (Roxicodone) 5 MG tabletIndications :Pancreatic mass (HCC) Take 1 (one) tablet by mouth every 4 hours as needed 12 tablet 01/13/2025 4:27 PM CDT 01/13/2025 01/18/2025 pantoprazole EC (Protonix) 40 MG tablet Take 1 (one) tablet by mouth once daily 90 tablet 3 01/13/2025 4:27 PM CDT 01/14/2025 polyethylene glycol 3350 (Miralax) 17 GM/SCOOP powder Take 17 (seventeen) g by mouth once daily 238 g 01/14/2025 sennosides (Senokot) 8.6 MG tablet Take 1 (one) tablet by mouth once daily for 10 days 10 tablet 01/13/2025 4:27 PM CDT 01/14/2025 01/24/2025 documented as of this encounter Progress Notes * Dara Pike, RN - 01/13/2025 3:34 PM CDT . Care Coordination Initial Assessment Expected Discharge Date: 01/16/2025 Expected Discharge Disposition: (P) Home or Self Care Transportation at Discharge: (P) Family Prior Level of Care: (P) Home Prior to Admit Provider: Comments: CM met with pt at bedside. CM verified address/phone/PCP-Dr.AJ Crowe is pt's PCP-unable to add in Dynamo Micropower. Pt lives with spouse, still drives, has no DME, is independent with ADLs at baseline. Pt's spouse plans to provide transportation upon DC. Pt will benefit from FWW upon DC. CM signedout FWW from gary and delivered to pt . Pt reports that he believes his Medicaid is pending currently as they are requesting additional information. CM will continue to follow for DC needs. Lives with: (P) Spouse/Significant Other Physical Limitations: (P) None Requires Assistance With: (P) None Preferred Pharmacy: [facility] [address] [phone] READMISSION RISK SCORE is 11 at 3:34 PM 01/13/2025. Met with patient Family Support (name and phone): No emergency contact information on file. Patient or it sales representative requests care coordination reach out to family or caregiver listed above regarding discharge planning and at time of discharge? No Durable Medical Equipment Planning Type of Bathroom Equipment: Grab Bars List DME pt. 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 For any questions or needs please contact: Blueprinting Machine Operator/Social Work Name/Phone number: Dara Pike RN * Rashawn Khan DO - 01/13/2025 11:02 AM CDT Following patient peripherally. Plan of care note below 59 year old male with history of melanoma s/p resection who presented with 1 month of abdominal pain, nausea, vomiting, and 25 pounds of unintentional weight loss. OSH imaging was reportedly remarkable for pancreatic tail lesion, innumerable liver lesions, and abdominal lymphadenopathy. Interval history: AM CBC stable. Iron panel consistent with anemia of chronic disease. Folate low at 5.9. GI recommending IR biopsy of liver lesions. Assessment: Pancreatic tail and hepatic lesions -High concern for malignancy 2. Folate deficiency 3. Anemia of chronic disease, likely secondary to malignancy -Hemoglobin 8.9 on presentation with no prior values to compare to -Folate low at 5.9 -Ferritin 2,200 with low iron at 11, and TIBC 146 Recommendations: -Will continue to follow peripherally pending IR biopsy of liver lesions -Monitor for CA 19-9 level -Folate 1 mg daily Teddy Khan DO, PGY IV Hematology/Oncology [facility] Cosigned by Luciano Phillips MD at 01/14/2025 7:10 AM CDT * Lydia Tinsley - 01/13/2025 10:30 AM CDT [facility] Physical Medicine and Rehabilitation Physical Therapy Initial Evaluation Note Patient: Melecio Lim [facility] Record Number: [id number] Date of : 1965 Age: [age] year old PPE worn by staff: gloves;mask - procedural PPE worn by patient: gown - patient, clean;socks - clean Recommendations: Discharge PT Discharge Recommendations: Patient would benefit from OP Therapy: PT Recommended Transportation Method: Private Car In addition to the 1:1 evaluation of the patient, additional eval time was spent completing the chart review prior to the assessment, completing the multidisciplinary plan of care and education plan post evaluation and communicating results of the eval to other treatment team members. Patient currently using no assistive device. Occupational Therapist contacted regarding patient status and/or discharge plan. Physician Orders: Evaluation and Treat PRECAUTIONS: Weight Bearing Status: (No restrictions) Activity Level: Activity as Tolerated DIAGNOSIS: Problem List[1] Past Medical History[2] SUBJECTIVE: Subjective: Pt is agreeable to work with PT PATIENT GOALS / WHAT MATTERS MOST TO THE PATIENT: Patient's Primary Concern: To get better Home Situation: Type of Residence: Private Residence Living arrangement: Spouse/Significant Other;Children Steps to Enter: 1 Ramp: No Handrails: None Home Structure: One Story Primary Bedroom: First Floor Primary Bathroom: First Floor Bathroom : Tub/Shower Combo Equipment at Home: Bathroom Equipment Prior Level of Functioning: Prior Level of Function Mobility: Ambulate-In Community;Ambulate-In Home Fallen Within 6 Mos: No Have Help at Home?: Yes, there is help at home now Who assists you at home?: Friends/Family How often is assistance provided?: As needed Level of Help Sufficient?: Yes Oxygen at Home: No Activity at Home: Other (Comment) (Pt reports that he has been more sedentary recently 2/2 cancer diagnosis) Vision: Corrected with glasses (Pt does not have glasses with him at hospital, plans to ask tobring them) Hearing Exceptions: No impairment Who manages medications?: Pain Assessment: Pain Assessment Pain Scale/Observation: 0-10 Pain Rating Score #1: 3 Sedation Level: 1-Awake and alert Pain Location : Abdomen Non-Pharmacological Intervention: Rest;Reposition OBJECTIVE: At start of therapy session, patient found in patient bedside chair and with chair alarm on. General Appearance: 59 y.o M in NAD LDAs: Floor: IVs: Peripheral line Edema: no edema noted in bilateral lower extremities Vitals: (*Assess the 3 levels of oxygen saturations both for room air and 02 unless rest on room air is 88% or less). Rest BP: 26709 (89) HR: Sp02 Sp02 Room Air L O2 Post Activity BP: 117/79 (90) HR: Sp02 Sp02 Room Air L O2 Observations: No signs or symptoms of distress. Pt denies dizziness or lightheadedness with activity Mental Status/Cognition: Level of Consciousness-Adult: (A&Ox4) Attention Span: Attends with cues to redirect Memory: Appears intact Following Commands: Follows one step commands consistently Safety Judgement: Good awareness of safety precautions Awareness of Errors: Good awareness of errors made ROM: RLE: AROM WFL LLE: AROM WFL Strength: RLE:WFL LLE: WFL, Grossly 4+/5 MMT Sensation: RLE: intact LLE: intact Mobility: A gait belt and non-slip socks were used for all out of bed activity this date. Bed Mobility: Supine to Sit: Activity Does Not Occur Sit to Supine: Complete Letcher Transfers: Sit to Stand: Stand By Assist Stand to Sit: Complete Letcher Bed to Chair: Activity Does Not Occur Transfer Device: Gait belt Gait: Weight Bearing Status: (No restrictions) Distance Ambulated (ft): 400 FEET Ambulation: Assistive Device: Gait Belt Ambulation: Level of Assistance: Stand By Assist Ambulation: Gait Deviations: Arabella - Decreased Comments: Pt expresses concern for the need of an AD. He reports that sometimes he feels off balance when getting out of bed to stand up, which resolves with walking for a couple of minutes. He reports that it might be a result of not wearing his glasses, and plans to have his bring them to the hospital. Pt was also educated on performing ankle pumps and leg kicks before standing up to prevent dizziness and/or lightheadedness. No indication for DME at this time. Balance: Balance Scales/Tests Used: Sitting: Static/Dynamic;Standing: Static/Dynamic Sitting - Static: Good Sitting - Dynamic: Good Standing - Static: Good - Standing - Dynamic: Good - ACTIVITY TOLERANCE: Activity Tolerance: Tolerates ADLs without rest breaks TREATMENT/INTERVENTIONS: evaluation, gait training, and monitoring of vitals AM-PAC 6 Clicks Mobility Raw Score:: 22 EDUCATION: While performing PT, Patient was instructed in:functional mobility training, safety awareness/fall precautions Presented to patient who demonstrates Good understanding of instructions given. INFORMED CONSENT TO TREATMENT: Plan of care including recommended therapy, goals and frequency, discussed with patient who understands and agrees to proceed. ASSESSMENT: Patient would benefit from additional Physical Therapy sessions to achieve the following functionalgoals to enhance independence. Short Term Goals: Goal Formation With patient Patient will ambulate 400 feet independently Patient will ascend/descent 1 steps independently Patient will perform home exercise program independently Snf Goal(s): Patient to be independent with functional mobility and self-care and should be able to safely discharge to prior level of care. Equipment Issued: gait belt Plan: Gait training Stair training Balance training Energy conservation techniques Safety awareness Home exercise program training If patient is discharged from the facility, this note serves as a discharge summary if further physical therapy visits did not occur. Refer to filed flowsheet for further details. Following therapy session, patient left in bed, with bed alarm on , with call light within reach, with fall mats in place. [1] Patient Active Problem List: Pancreatic mass (HCC) Cancer, metastatic to liver (HCC) Lymphadenopathy, abdominal Epigastric pain Elevated alkaline phosphatase level Hypoalbuminemia Dysuria Normocytic anemia Gastroesophageal reflux disease without esophagitis Liver masses Rib pain [2] Past Medical History: Diagnosis Date Hx of melanoma of skin Cosigned by Ingrid Whitten, PT at 01/13/2025 3:32 PM CDT * Laurita Tyson OT - 01/13/2025 8:55 AM CDT [facility] Occupational Therapy Initial Evaluation Note Patient: Melecio Lim [facility] Record Number: [id number] Date of : 1965 Age: [age] year old PPE worn by staff: gloves PPE worn by patient: gown - patient, clean;socks - clean Recommendations: Discharge Discharge Equipment Recommendations: None OT Discharge Recommendations: Patient may return home without the need for ongoing skilled therapy services post-hospitalization Acute OT needs addressed and adequate for discharge from hospital: Yes In addition to the 1:1 evaluation of the patient, additional eval time was spent completing the chart review prior to the assessment, completing the multidisciplinary plan of care and education plan post evaluation and communicating results of the eval to other treatment team members. Nurse contacted regarding patient status and/or discharge plan. Physician Orders: Evaluation and Treat Activity Level: as tolerated PRECAUTIONS: DIAGNOSIS: Problem List[1] Past Medical History[2] SUBJECTIVE: Subjective: pt agreeable to OT PATIENT GOALS / WHAT MATTERS MOST TO THE PATIENT: Patient's Primary Concern: get stronger Home Situation: Type of Residence: Private Residence Living arrangement: Spouse/Significant Other;Children (2 y/o daughter) Ramp: No Handrails: None Home Structure: One Story Primary Bedroom: First Floor Primary Bathroom: First Floor Bathroom : Tub/Shower Combo Equipment at Home: Bathroom Equipment Additional Information (OT): IND ADLs Prior Level of Functioning: Mobility: Ambulate-In Community;Ambulate-In Home Fallen Within 6 Mos: No Have Help at Home?: Yes, there is help at home now Who assists you at home?: Friends/Family How often is assistance provided?: as needed Level of Help Sufficient?: Yes Oxygen at Home: No Activity at Home: Sedentary (pt reports due to cancer, more sedentary) Vision: Corrected with glasses Hearing Exceptions: No impairment Who manages medications?: Pain Assessment: Pain Assessment Pain Scale/Observation: 0-10 Pain Rating Score #1: 4 Pain Location : Abdomen;Back OBJECTIVE: At start of therapy session, patient found in bed General Appearance: pt alert and awake LDA: Floor: IVs: Peripheral line Edema: No edema noted Vitals: (*Assess the 3 levels of oxygen saturations both for room air and 02 unless rest on room air is 88% or less). Rest BP: 141/41 (105) HR: 92 Sp02 Sp02 96-97% Room Air UE ROM: RUE: AROM WFL LUE: AROM WFL Strength: RUE: WNL LUE: WNL UE Tone RUE: no abnormal tone noted LUE: no abnormal tone noted Coordination: intact serial opposition for bilateral hands UE Proprioception RUE: WFL LUE: WFL UE Sensation RUE: intact LUE: intact Mobility: A gait belt and non-slip socks were used for all out of bed activity this date. Bed Mobility: Supine to Sit: Complete Letcher with HOB in semi-fowlers position Sit to Supine: Activity Does Not Occur Transfers: Sit to Stand: Supervision Stand to Sit: Supervision Bed to Chair: Supervision Transfer Device: Gait belt Functional Ambulation: Patient ambulated to/from bathroom and in room with 1 assist using gait belt. Balance: Balance Scales/Tests Used: Sitting: Static/Dynamic;Standing: Static/Dynamic Sitting - Static: Normal Sitting - Dynamic: Normal Standing - Static: Good - Standing - Dynamic: Fair + Activities of Daily Living Oral Facial Hygiene: Supervision (standing at bathroom sink) Lower Body Dressing: Complete Letcher (pt don/doff socks sitting EOB, and applied lotion to feet sitting EOB, demonstrating good dynamic stting balance) ACTIVITY TOLERANCE: Activity Tolerance: Tolerates ADLs without rest breaks AM-PAC 6 Clicks Daily Activity Raw Score:: 24 TREATMENT / EDUCATION / INTERVENTIONS: While performing OT, Patient was instructed in:functional mobility training, self-care training Presented to patient who demonstrates Good understanding of instructions given. INFORMED CONSENT TO TREATMENT: Plan of care including recommended therapy, goals and frequency, discussed with patient who understands and agrees to proceed. ASSESSMENT: Patient demonstrated independence/ baseline with activities of daily living. No continued IP Occupational Therapy indicated at this time. Table Games Shift Manager Goal(s): Patient to be baseline with functional mobility and self-care and should discharge to prior level of care. Plan: Goals achieved. DC patient from skilled therapy services at this time. If patient is discharged from the facility, this note serves as a discharge summary if further occupational therapy visits did not occur. Refer to filed flowsheet for further details. Following therapy session, patient left in patient bedside chair , with chair alarm on and positioned under patient's buttocks , with call light within reach, with RNIrina aware. [1] Patient Active Problem List: Pancreatic mass (HCC) Cancer, metastatic to liver (HCC) Lymphadenopathy, abdominal Epigastric pain Elevated alkaline phosphatase level Hypoalbuminemia Dysuria Normocytic anemia Gastroesophageal reflux disease without esophagitis Liver masses [2] Past Medical History: Diagnosis Date Hx of melanoma of skin * Bakari Tay - 01/12/2025 3:12 PM CDT responded to the call from [facility] for a crude tester visit. Resident Program Specialist met Mr. Lim and his at the bedside. Pt expressed his concern for his health condition. Per pt's , he was never getting serious sickness before. As a responsible man in the family, he concerned for the work at home. Pt's tried to comfort him and said 'don't worry abut it. Resident Program Specialist listened to their family story as they adopted the little daughter and wanted to take care of her. Resident Program Specialist provided active listening and affirmation for their loving care for the family. They was appreciated for the visit and welcomed for the crude tester visit anytime. Pastoral care remains available as needed. 646/01 Bakari Tay 01/12/2025 3:18 PM * Gabby Eastman Graduate Nurse - 01/12/2025 11:58 AM CDT Problem: Pain/Discomfort Goal: Patient exhibits reduced pain/discomfort as evidenced by pain scores Outcome: Progressing Goal: Patient uses pharmacological and non-pharmacological pain management strategies. Outcome: Progressing Goal: Patient verbalizes acceptable level of pain relief and ability to engage in desired activity. Outcome: Progressing Cosigned by Arnie Hernandez RN at 01/13/2025 10:53 AM CDT documented in this encounter H&P Notes * Arcelia Lozano - 01/12/2025 8:29 AM CDT [facility] INTERNAL MEDICINE HISTORY & PHYSICAL NOTE Date of Admission: 01/12/2025 Patient: Melecio Lim Sex: male Age: [age] year old Date of : 1965 Code Status: Full Code SUBJECTIVE Chief Complaint: OSH transfer due to suspicion of pancreatic malignancy. History of Present Illness: Jonathon Lim is a 59 year old man with PMHx of melanoma s/p removal, who presented to the hospitalfrom an outside hospital due to CT scan indicating suspicion of a pancreatic malignancy. Patient stated that he presented to an outside PCP when he started to feel ill about 1 month prior.Patient reported feeling weaker and having difficulty lifting up his right leg when walking. He also indicated that he was having night sweats and woke up several times completely drenched, in addition to nausea and tenderness of the tongue preventing him from being able to eat adequately, throwingup stomach acid and did not have an appetite in general. In addition patient stated that he has lost about 25 lbs in the last 3-4 weeks. At PCP, patient was given medications (will follow up with to see which ones) which did not seem to work, went back to the PCP who sent patient over to the ED in order to get labs and a XR(?). He was found to be dehydrated and was given IV fluids, which made him fluid overloaded. In addition he was found to be anemic and iron deficient and stated that OSHthought that he may have been bleeding somewhere internally, which prompted CT. Fluids helped improve the nausea, and right leg weakness. 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 He also stated that for the last few months that he has felt like he was smelling/breathing in metal. Did not indicate any loss of consciousness prior to or when he had this feeling. Patient states that he continues to have abdominal pain, indicating that its is a diffuse, dull, more uncomfortable/achy pain that he believes starts from his back and then comes forward and localizes epigastrically as well as in the R/L upper quadrants, which has persisted for about a month. He stated that after he received fluids at the OSH, the abdominal pain subsided slightly, however has notentirely resolved, did not indicate if medications helped with the pain. Patient was on stool softening protocol at the outside hospital due to minor constipation, he has anodule/bump on middle finger that is painful when it is palpated and when he bumps his hand on any surface, in addition stated that he has had some burning with urination intermittently. Past Medical History: Past Medical History[1] Past Surgical History: Past Surgical History[2] Family History: Family History[3] Social History: Social History Socioeconomic History Marital status: Not on file Spouse name: Not on file Number of children: Not on file Years of education: Not on file Highest education level: Not on file Occupational History Not on file Tobacco Use Smoking status: Not on file Smokeless tobacco: Not on file Substance and Sexual Activity Alcohol use: Not on file Drug use: Not on file Sexual activity: Not on file Other Topics Concern Not on file Social History Narrative Not on file Social Drivers of Health Financial Resource Strain: Low Risk (01/12/2025) Overall Financial Resource Strain (CARDIA) Difficulty of Paying Living Expenses: Not hard at all Food Insecurity: No Food Insecurity (01/12/2025) Hunger Vital Sign Worried About Running Out of Food in the Last Year: Never true Ran Out of Food in the Last Year: Never true Transportation Needs: No Transportation Needs (01/12/2025) PRAPARE - Transportation Lack of Transportation (Medical): No Lack of Transportation (Non-Medical): No Stress: No Stress Concern Present (01/12/2025) [place] [facility] [employer] - Occupational Stress Questionnaire Feeling of Stress : Not at all Housing Stability: Unknown (01/12/2025) Housing Stability Vital Sign Unable to Pay for Housing in the Last Year: No Number of Times Moved in the Last Year: Not on file Homeless in the Last Year: No Allergies: Allergies[4] Home Medications: Medications Ordered Prior to Encounter[5] Current Medications: Scheduled: Medications[6] Continuous: Medications[7] PRN: Medications[8] Review of Systems: Review of Systems Constitutional: Positive for weight loss. Negative for chills, diaphoresis, fever and malaise/fatigue. HENT: Negative for congestion, ear pain, hearing loss and nosebleeds. Eyes: Negative for blurred vision, double vision and pain. Cardiovascular: Negative for chest pain, palpitations and leg swelling. Gastrointestinal: Positive for abdominal pain and nausea. Negative for blood in stool, diarrhea, melena and vomiting. Genitourinary: Positive for dysuria and flank pain. Negative for frequency and urgency. Intermittently Musculoskeletal: Positive for back pain and joint pain. Skin: Negative for itching and rash. Neurological: Negative for dizziness, tremors, focal weakness, weakness and headaches. Endo/Heme/Allergies: Does not bruise/bleed easily. Psychiatric/Behavioral: Negative for depression, memory loss and substance abuse. The patient is not nervous/anxious. OBJECTIVE Vital Signs: Temp: [98.3 ??F (36.8 ??C)] 98.3 ??F (36.8 ??C) Pulse: [89] 89 BP: (125)/(77) 125/77 Physical Exam: Physical Exam Constitutional: General: He is not in acute distress. Appearance: Normal appearance. He is normal weight. He is not ill-appearing. HENT: Nose: Nose normal. Mouth/Throat: Mouth: Mucous membranes are moist. Pharynx: Oropharynx is clear. No oropharyngeal exudate or posterior oropharyngeal erythema. Cardiovascular: Rate and Rhythm: Normal rate and regular rhythm. Pulses: Normal pulses. Heart sounds: Normal heart sounds. Pulmonary: Effort: Pulmonary effort is normal. Breath sounds: Normal breath sounds. Abdominal: General: Abdomen is flat. There is no distension. Palpations: Abdomen is soft. Tenderness: There is abdominal tenderness. There is no guarding or rebound. Musculoskeletal: General: No swelling or tenderness. Normal range of motion. Cervical back: Normal range of motion. Skin: General: Skin is warm and dry. Neurological: General: No focal deficit present. Mental Status: He is alert. Cranial Nerves: No cranial nerve deficit. Sensory: No sensory deficit. Motor: No weakness. Gait: Gait normal. Psychiatric: Mood and Affect: Mood normal. Behavior: Behavior normal. Thought Content: Thought content normal. Judgment: Judgment normal. Lab Results: CBC: No results for input(s): WBC, HGB, HCT, MCV, PLT in the last 33800 hours. Coagulation Panel: No results for input(s): PT, INR, PTT in the last 49242 hours. BMP: No results for input(s): NA, POTASSIUM, CL, CO2, BUN, CREATININE, GLU, CALCIUM in the last 52277 hours. No results for input(s): MAGNESIUM in the last 80788 hours. No results for input(s): PHOS in the last 16018 hours. Hepatic Panel: No results for input(s): AST, ALT, ALKPHOS, TBILI, DBILI, IBILI, ALB in the last 18516 hours. ABG: No results for input(s): PH, PCO2, PO2 in the last 76000 hours. Invalid input(s): BICAR3 Amylase/Lipase: Invalid input(s): AMYL, LIPA Thyroid Studies: No results for input(s): TSH, T4 in the last 10518 hours. Cardiac Enzymes: No results for input(s): CKTOTAL, CKMB, TROPONINI in the last 43323 hours. Invalid input(s): CKMBINDEX Lipid Panel: No results for input(s): LDLCALC, HDL in the last 15188 hours. UA: Ordered Microbiology: None Imaging & Studies: CT Abd/Pelvis (OSH): Findings within the upper abdomen for which as primary pancreatic malignancy is suspected, possiblelocated within the tail. Innumerable lesions within the liver, amendable to percutaneous biopsy. No pancreatic ductal dilatation is appreciated Innumerable pathology enlarged and morphologically suspicious lymph nodes within the upper abdomen Despite the extensive (likely) metastatic disease and abdominal lymphadenopathy, the vasculature within the upper abdomen appears preserved. ASSESSMENT & PLAN Pancreatic mass (HCC) (POA: Unknown) Assessment: Jonathon Lim is a 59 yo male present for suspicion of pancreatic malignancy. PLAN: #Pancreatic/Liver Masses #Abdominal Pain #Nausea -consulted GI - indicated consult to IR for liver biopsy -consulted IR -consulted Oncology- will f/u post biopsy with IR -PRN Zofran for nausea -Tylenol TID for abdominal pain (mild to moderate) -Oxycodone 5 mg q4h PRN (moderate to severe pain) -PRN Zofran due to nausea -Protonix QD 40 mg -vitals q4h #Anemia: -iron panel due to anemia from labs from outside hospital -ferratin ordered #Dysuria: -complaints of dysuria intermittently - UA ordered -will discuss with family regarding medications and further history Code: FULL Diet: Regular Electrolytes: Replete PRN PPx: Protonix Access: none Dispo: Admit to Medicine. The above assessment and plan will be discussed with the attending. This note is not final until attested by attending physician. Arcelia Lozano Internal Medicine MS3 M - [facility] 01/12/2025 8:30 AM [1] No past medical history on file. [2] No past surgical history on file. [3] No family history on file. [4] No Known Allergies [5] No current facility-administered medications on file prior to encounter. No current outpatient medications on file prior to encounter. [6] 0.9% NaCl 3 mL Intracatheter q8h acetaminophen 1,000 mg Oral TID [7] [8] SALINE LOCK, INSERT AND MAINTAIN AND 0.9% NaCl AND 0.9% NaCl oxyCODONE (immediate release) OR oxyCODONE (immediate release) Cosigned by Diana Franco MD at 01/12/2025 5:04 PM CDT Associated attestation - Diana Franco MD - 01/12/2025 5:04 PM CDT This note is for educational purposes only. Diana Franco MD * Rafaela Celis MD - 01/12/2025 7:36 AM CDT Images from the original note were not included. [facility] Internal Medicine History and Physical Name: Melecio Lim Room/Bed: [facility] : 1965 59 year old PCP: No primary care provider on file. Chief Complaint Chief Complaint: abdominal pain History of Present Illness Jonathon Lim is a 59 year old man with PMHx of melanoma s/p removal, who presented to [facility] from OSH for higher level of care given concern for new pancreatic and liver malignancy. Patient stated that he presented to an outside PCP when he started to feel ill about 1 month prior.Patient reported feeling weaker, having night sweats, and experiencing nausea with loss in appetiteand occasional bouts of emesis. He endorsed 20 lb weight loss in the last 3 weeks. The patient was sent to the ED by his PCP. Labs revealed anemia. CT AP was completed to assess for bleeding and which resulted in the incidental finding of pancreatic and liver masses. The patient was then transferred to [facility] for higher level care. On exam, the patient states that he continues to have abdominal pain, indicating that its is a diffuse, dull, more uncomfortable/achy pain that he believes starts from his back and then comes forwardand localizes epigastrically as well as in the R/L upper quadrants, which has persisted for about amonth. He stated that after he received fluids at the OSH, the abdominal pain subsided slightly, however has not entirely resolved, did not indicate if medications helped with the pain. Labs on admission were notable for anemia. Review of Symptoms Review of Systems Constitutional: Positive for weight loss. Negative for chills and fever. HENT: Negative. Eyes: Negative. Respiratory: Negative. Cardiovascular: Negative. Gastrointestinal: Positive for abdominal pain and nausea. Genitourinary: Positive for dysuria. Musculoskeletal: Positive for joint pain and myalgias. Skin: Negative. Neurological: Negative. Medical and Surgical History Allergies[1] Past Medical History[2] Past Surgical History[3] No current outpatient medications Social and Family History Social History Socioeconomic History Marital status: Not on file Spouse name: Not on file Number of children: Not on file Years of education: Not on file Highest education level: Not on file Occupational History Not on file Tobacco Use Smoking status: Not on file Smokeless tobacco: Not on file Substance and Sexual Activity Alcohol use: Not on file Drug use: Not on file Sexual activity: Not on file Other Topics Concern Not on file Social History Narrative Not on file Social Drivers of Health Financial Resource Strain: Low Risk (01/12/2025) Overall Financial Resource Strain (CARDIA) Difficulty of Paying Living Expenses: Not hard at all Food Insecurity: No Food Insecurity (01/12/2025) Hunger Vital Sign Worried About Running Out of Food in the Last Year: Never true Ran Out of Food in the Last Year: Never true Transportation Needs: No Transportation Needs (01/12/2025) PRAPARE - Transportation Lack of Transportation (Medical): No Lack of Transportation (Non-Medical): No Stress: No Stress Concern Present (01/12/2025) [place] [facility] - Occupational Stress Questionnaire Feeling of Stress : Not at all Housing Stability: Unknown (01/12/2025) Housing Stability Vital Sign Unable to Pay for Housing in the Last Year: No Number of Times Moved in the Last Year: Not on file Homeless in the Last Year: No Family History[4] Objective Recent Vitals: Temp: [98.3 ??F (36.8 ??C)] 98.3 ??F (36.8 ??C) Pulse: [89] 89 BP: (125)/(77) 125/77 Weight change: No intake or output data in the 24 hours ending 01/12/25 0736 Physical Exam: Gen: Alert, cooperative, in no acute distress HEENT: EOMI, no nasal drainage CV: Regular rate and rhythm. No murmurs appreciated Lungs: Clear to auscultation bilaterally Abdomen: BS+, soft, generalized TTP, non-distended Extremities: Nontender with normal ROM Skin: Warm, dry Neuro: Alert and oriented to person, place, time and situation Psych: Mood appropriate Laboratory Data No results for input(s): WBC, HGB, HCT, PLTCOUNT, MCV in the last 08857 hours. No results for input(s): PT, INR, PTT in the last 46515 hours. No results for input(s): NA, POTASSIUM, CL, CO2, BUN, CREATININE, GLU in the last 17859 hours. No results for input(s): CALCIUM, MG, PHOS in the last 99313 hours. No results for input(s): PROT, ALB, ALKPHOS, AST, ALT, TBILI, DBILI in the last [id number]. No results for input(s): CKTOTAL, CKMBCK2, TROPONINI in the last 61983 hours. No results for input(s): VANCORNDM, VANCTROUGH in the last 09878 hours. Microbiology Results (Displays last 21 days for this encounter ONLY) No results found for the last 504 hours. Imaging No results found. EKG Interpretation: not indicated Relevant labs and imaging data reviewed on [facility] Assessment and Plan Pancreatic mass (HCC) (POA: Yes) Cancer, metastatic to liver (HCC) (POA: Yes) Lymphadenopathy, abdominal (POA: Yes) Epigastric pain (POA: Yes) Elevated alkaline phosphatase level (POA: Yes) Hypoalbuminemia (POA: Yes) Dysuria (POA: Yes) Normocytic anemia (POA: Yes) Gastroesophageal reflux disease without esophagitis (POA: Yes) Liver masses (POA: Unknown) Assessment & Plan Pancreatic mass (HCC) Lymphadenopathy, abdominal Epigastric pain Liver masses The patient presented to the OSH with [...] be able to do the biopsy and adjustdiet accordingly - Heme/onc consult, recommend CT chest/pancreas/pelvis with contrast, CA19-9 (ordered). Will followperipherally until tissue biopsy results are back. Dysuria Dubois UA without signs of UTI - CTM symptoms Normocytic anemia Hgb 8.9 on admission - iron panel, ferritin, B12, folate Gastroesophageal reflux disease without esophagitis - continue home pantoprazole Incidental findings requiring follow up: N/A Diet: DIET REGULAR DIET NPO Except: SIPS WITH MEDS DVT Prophylaxis: Heparin (DVT Prophylaxis Dose) Goals of Care: Advance Care Planning Goals of Care A voluntary discussion was had with the patient regarding goals of care. - The patient has the following serious conditions: C/f metastatic cancer - Patient's goals of care include aggressive, usual medical care Current active code status Full Code - The patient would be OK with admission to the hospital for care - The patient would be OK with admission to the ICU for care - Estimated level of understanding: Good POA/Surrogate Decision Maker: - [phone] [place] Candidate?: Yes Electronically Signed By: Rafaela Celis MD Date of Service: 01/12/2025 The above assessment and plan will be discussed with attending physician. This note is not final until attested by the attending physician. [1] No Known Allergies [2] No past medical history on file. [3] No past surgical history on file. [4] No family history on file. Cosigned by Diana Franco MD at 01/12/2025 5:07 PM CDT Associated attestation - Diana Franco MD - 01/12/2025 5:07 PM CDT I have verified the documentation of the resident including all history, exam, and medical decision-making details. I have personally performed a physical exam and have personally reviewed the data to support my medical decision-making as outlined in their note. I agree with their assessment and plan other than any corrections/additions as documented below. Principal Problem: Pancreatic mass (HCC) Active Problems: Cancer, metastatic to liver (HCC) Lymphadenopathy, abdominal Epigastric pain Elevated alkaline phosphatase level Hypoalbuminemia Dysuria Normocytic anemia Gastroesophageal reflux disease without esophagitis Liver masses Corrections/Additions: 59M w/no significant PMH tobacco product use, melanoma s/p treatment presenting to [facility] as a transfer from OSH for biliary evaluation of abdominal mass. Initially went to OSH on 01/10/2025 for evaluation of weight loss and abdominal/back pain. Work-up most notable for CT scan which noted findings in th e upper abdomen most c/f pancreatic malignancy and innumerable liver lesions and LAD. Transferred to [facility] for further management. PLAN: - biliary consultation for evaluation of presumed pancreatic malignancy; will discuss sampling withthem to determine if they intend to obtain or wish for IR consultation tomorrow for possible sampling of liver lesion instead - repeat UA as he is reporting dysuria which he had not endorsed at OSH when study collected there - pain control + PPI + bowel regimen as he had been receiving at OSH - nutrition consultation to evaluate for malnutrition given weight loss in setting of presumed malignancy - IR and GI to review images once uploaded to chart Date of Service: 01/12/2025 Diana Franco MD The total time spent was 76 minutes performing chart preparation, review of data and visit with thepatient documented in this encounter Consult Notes * Alta Morelos, APRIL/LD - 01/13/2025 2:31 PM CDTAssociated Order(s): IP CONSULT TO NUTRITIONAL SERV BRIEF SYNOPSIS: Nutrition Risk Identified and meets criteria for Severe Protein Calorie malnutrition. Malnutrition Etiology Malnutrition in the context of: chronic disease (01/13/25 1400) Malnutrition Severity: Severe Protein Calorie (01/13/25 1400) Dietary Intake: Dietary Intake Evaluation Energy Intake: < 75% of estimated energy requirement for > 1 month Weight Change: Fat Loss: Loss of Subcutaneous Fat Orbital: Severe Buccal: Severe Tricep: Severe Chest/Ribs: Severe Muscle Loss: Muscle Loss Temples (Temporalis Muscle): Moderate Clavicles (Pectoralis & Deltoids): Severe Shoulders (Deltoids): Severe Scapula (Latissimus dorsi, Trapezius, Deltoids): Severe There is no height or weight on file to calculate BMI. GI Concerns: None (admitted with nausea and vomiting. Reports this is now resolved) Nutrition Plan: Current diet order: NPO +Ensure Clear (240 kcals, 8 g protein, 52 g carbohydrate) BID Recommendation to Physician: - Please code for malnutrition and add to active problems list - Advance diet when medically able - Recommend above supplements- will order for when diet advances Discharge Needs: Nutritional Supplement at Discharge: Yes CLINICAL NUTRITION ASSESSMENT: RD consulted for MST 3- weight loss of 14-23# and decreased appetite. Pt currently NPO for CT. Pt states that his appetite was poor for about 3 weeks prior to his hospital admission. States he has lost about 20-25# in that time frame. Pt reports that since admission his appetite has significantly improved. Pt presents with muscle/fat loss at this time. Estimated pt hasn't been meeting nutrition needs x 1 month. Pt does meet ASPEN criteria for malnutrition at this time. Discussed supplement options and pt agreeable to ensure clear - does not like ensure plus. Pt states that he left his dentures at home, but ok with regular consistency and picking things he can chew off the menu. Labs reviewed. RD will continue to monitor. Med/Surg History and Clinical Diagnoses: 59 year old man with PMHx of melanoma s/p removal, who presented to the hospital from an outside hospital due to CT scan indicating suspicion of a pancreatic malignancy. Height: 170.2 cm (5' 7) BMI: There is no height or weight on file to calculate BMI. IBW/lb (Calculated) Male: 148 Recent Weights/Methods No data found in the last 50 encounters. UBW: 170# Unintentional weight change: No weight history in EMR. Pt reports UBW is 170#. Reports that he has lost about 20# in the past 3 weeks. If accurate this would be considered a significant weight loss of 11% body weight loss x 1 month. Attempted to obtain updated weight, however, bed scale is not working at this time. PO INTAKE Current diet order: NPO Nutrition recommendation: agree with current nutrition order Food Allergies: No known food allergies Last Percent Meal Eaten (%): 100 % (01/12/251905) 48 hr PO INTAKE Percent Meal Eaten (%) Av % Min: 100 % Max: 100 % None Pain affecting intake: No Chewing/Swallowing: Dentures (states he left them at home.) GI Concerns: None (admitted with nausea and vomiting. 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 Skin/Wound: none Estimated Needs: KCAL: 1234-8244 (30-40 kcal/kg IBW) Protein (g): 101-135 (20% est needs) Fluid (ml): 1 ml/kcal Needs based on: Kcal/kg- (Comment) (IBW 67kg) Recommended Access Route: PO Labs: Recent Labs Component Name 01/13/25 0709 01/12/25 0915 NA 135* 136 POTASSIUM 4.0 3.7 CO2 23 BUN 12 7 CREATININE 0.57* 0.55* GLUCOSE 103* 87 CALCIUM 8.5 8.3* ALT - 33 ALKPHOS - 117 AST - 23 EGFR >90 >90 Recent Labs Component Name 01/13/25 0709 01/12/25 0915 PHOS 3.1 3.1 Recent Labs Component Name 01/12/25 0915 MAGNESIUM 1.9 Recent Labs Component Name 01/13/25 0707 01/12/25 0914 HGB 9.1* 8.9* HCT 28.6* 28.0* No results for input(s): HGBA1C in the last 97604 hours.No data found. MEDICATIONS FOR CURRENT ENCOUNTER: SCHEDULED MEDICATIONS: 0.9% NaCl injection 3 mL, Intracatheter, q8h acetaminophen (Tylenol) tablet 1,000 mg, Oral, TID calamine lotion, Topical, TID folic acid (Folvite) tablet 1 mg, Oral, QDAY heparin injection 5,000 Units, Subcutaneous, BID pantoprazole EC (Protonix) tablet 40 mg, Oral, QDAY polyethylene glycol 3350 (Miralax) packet 17 g, Oral, QDAY senna (Senokot) tablet 8.6 mg, Oral, QDAY CONTINUOUS MEDICATIONS: PRN MEDICATIONS: Or Or Or 0.9% NaCl injection 1-10 mL, Intracatheter, PRN artificial tears ophthalmic solution 1 drop, Each Eye, TID PRN dextrose IV 12.5 g, Intravenous, PRN dextrose IV 25 g, Intravenous, PRN glucagon (Glucagen) injection 1 mg, Subcutaneous, PRN glucose (Diabetic Use) oral gel, Oral, PRN melatonin tablet 3 mg, Oral, AT BEDTIME PRN ondansetron (disintegrating) (Zofran ODT) tablet 4 mg, Oral, q6h PRN oxyCODONE (immediate release) (Roxicodone) tablet 10 mg, Oral, q4h PRN oxyCODONE (immediate release) (Roxicodone) tablet 5 mg, Oral, q4h PRN Nutrition Diagnostic Statement: Malnutrition related to:: inadequate protein- energy intake as evidenced by:: unintentional weight loss;loss of subcutaneous fat;loss of muscle mass;estimated intake insufficient to meet requirements Nutrition Diagnostic Statement Progress: New diagnostic statement established Nutrition Intervention: Meals and snacks:;Medical Food Supplements: Education needed: High Calorie;High Protein Education Provided: Yes (01/13/25 1400) Pt was educated on high calorie high protein. Reviewed protein containing foods. Encouraged proteinsource at every meal and frequent snacks to increase calories. Pt reports that Expected level of compliance: Good Monitoring: GI, PO intake, WT, labs, medications Monitor per nutrition guidelines. Risk Level: At Risk for Malnutrition Evaluation: Nutrition Goal: Total intake will meet estimated nutrient needs Nutrition Goal Timeframe: Throughout stay Nutrition Goal Progress: New goal established ASCOM [id number] * Heather Willoughby PA - 01/12/2025 4:18 PM CDTAssociated Order(s): IP CONSULT TO INTERVENTIONAL RADIOLOGY Images from the original note were not included. Vascular & Interventional Radiology New Inpatient Consult Patient: Melecio Lim Age: [age] year old Date of : 1965 Date of Admission: 01/12/2025 Date: 01/12/2025 Subjective: Referring physician: Rafaela Celis MD Reason for consult: Liver mass biopsy HPI: Mr. Lim is a pleasant 59-year-old male with a history of melanoma who presents with a monthof fatigue, night sweats, and nausea/vomiting. He reports significant weight loss (25 lb) and CT abdomen upon admission demonstrated numerous lesions within the tail of the pancreas concerning for pancreatic malignancy as well as pancreatic ductal dilation and multiple pathologically enlarged lymphnodes in the abdomen. Per primary report outside imaging demonstrated multiple hepatic lesions concerning for metastatic disease and IR was consulted for potential liver biopsy. At the time of this note, imaging is not yet available however I have been told that his scan has been received and should be uploaded in the near future. Today patient is resting comfortably in bed and notes abdominal pain in the epigastric region upon palpation and fatigue. I discussed with him the potential need for liver biopsy pending results of imaging and the patient has agreed that he would like to proceed with biopsy should it be warranted to help treat his disease and improve his prognosis. Past Medical History[1] Past Surgical History[2] Allergies[3] Social History Tobacco Use Smoking status: Former Current packs/day: 1.00 Average packs/day: 1 pack/day for 20.0 years (20.0 ttl pk-yrs) Types: Cigarettes Smokeless tobacco: Not on file Substance Use Topics Alcohol use: Not Currently Comment: 0-1 a year Family History[4] Pertinent aspects of the patient's past medical, surgical, family, and social history are mentionedin the HPI above. Remaining PSFH was also reviewed and is not pertinent to the presenting problem. ROS: A complete ROS was performed. Pertinent positives and negatives are listed below. All other systemsreviewed were negative. Constitutional: negative for fevers or chills Respiratory: negative for shortness of breath Cardiovascular: negative for chest pain or discomfort Abdomen: Fullness in the epigastric region and pain to palpation Medications: Scheduled: Medications[5] PRN: Medications[6] Infusions: Medications[7] Objective: Physical examination: BP 127/80 Pulse 94 Temp 98.5 ??F (36.9 ??C) Resp 16 Ht 1.702 m (5' 7) SpO2 94% There is no height or weight on file to calculate BMI. General: well nourished, NAD ENT: atraumatic, MMM Neck: supple, trachea midline Lungs: normal respiratory effort, no accessory muscle use Cardiovascular: RRR Abdomen: soft, slightly distended with tenderness in the middle of the abdomen near the epigastric region. Extremities: warm, no pitting edema Psychiatric: AOx 3, appropriate mood and affect Laboratory findings: Recent Labs Component Name 01/12/25913 WBC 7.7 HGB 8.9* HCT 28.0* PLTCOUNT 445* Recent Labs Component Name 01/12/25913 INR 1.4 Recent Labs Component Name 01/12/2515 NA 136 GLUCOSE 87 CREATININE 0.55* EGFR >90 Recent Labs Component Name 01/12/25 0915 ALB 2.1* TBILI 0.7 ALT 33 AST 23 ALKPHOS 117 Imaging: Patient reportedly had a CT abdomen pelvis performed with contrast at outside hospital however scanis not available at this time. Imaging is current being uploaded and will be reviewed upon completion. Viewable on [employer], multiple lesions Recommendations: Mr. Lim is a pleasant 59-year-old male with high likelihood of primary pancreatic cancer and concern for metastatic liver disease. IR was consulted to consider image guided liver biopsy. There is no imaging available at this time however scans are to be uploaded from outside institution. We can not definitively plan for biopsy until imaging is received. Once received the IR team will review and consider patient's appropriateness for liver biopsy. Okay to place patient NPO overnight in the event imaging is available in the morning, and scheduling permits biopsy. The IR attending, Dr. Sainz, is in agreement with the above recommendations. The case was discussed with Rafaela Celis from the referring service on 01/12/2025 at 3:30 PM. ADDENDUM: VIR Coordinators contacted to schedule outpatient liver biopsy [1] Past Medical History: Diagnosis Date Hx of melanoma of skin [2] No past surgical history on file. [3] No Known Allergies [4] Family History Problem Relation Name Age of Onset Cancer Sister Ana Cancer - Esophageal Brother Jonathon [5] 0.9% NaCl 3 mL Intracatheter q8h acetaminophen 1,000 mg Oral TID pantoprazole EC 40 mg Oral QDAY [6] SALINE LOCK, INSERT AND MAINTAIN AND 0.9% NaCl AND 0.9% NaCl ondansetron (disintegrating) oxyCODONE (immediate release) OR oxyCODONE (immediate release) [7] * Ramonita Mcknight MD - 01/12/2025 9:45 AM CDTAssociated Order(s): IP CONSULT TO GASTROENTEROLOGY GASTROENTEROLOGY CONSULT Melecio Lim Age: [age] year old Date of : 1965 Date of Admission: 01/12/2025 Reason for Consult: Pancreatic mass Subjective: History of Present Illness: Melecio Lim is a 59 year old male with a PMH significant for melanoma s/p removal presenting as a transfer from OSH for suspicion of metastatic pancreatic cancer for which we were consulted. Patient reports feeling 'ill' for about 1 month prior to presentation. Associated symptoms were night sweat, anorexia, nausea and vomiting, 25 lb weight loss in the last 3 months. Per report, CT abdomen was concerning for pancreatic malignancy located within the tail, innumerable lesions within the liver amenable to percutaneous biopsy, no pancreatic ductal dilation enlarged pathological lymph nodes in the upper abdomen concern for extensive metastatic disease. Patient was transferred to [facility] for further management. Past Medical History: Problem List[1] Past Medical History[2] Past Surgical History: Past Surgical History[3] Medications: Medications[4] Medications[5] Allergies: Allergies[6] Social History: Social History Tobacco Use Smoking status: Former Current packs/day: 1.00 Average packs/day: 1 pack/day for 19.0 years (19.0 ttl pk-yrs) Types: Cigarettes Smokeless tobacco: Not on file Substance Use Topics Alcohol use: Not Currently Comment: 0-1 a year Family History: family history includes Cancer in his sister; Cancer - Esophageal in his brother. Review of Systems: Negative except as above. Objective Physical Exam: BP 134/84 (BP Location: Right arm, Patient Position: Lying) Pulse 87 Temp 98.5 ??F (36.9 ??C) (Oral) Resp 18 Ht 1.702 m (5' 7) SpO2 97% Wt Readings from Last 5 Encounters: No data found for Wt General: Alert and oriented x3. Comfortable. Eyes: Anicteric sclerae. Neck: Supple. Cardiovascular: RRR, no murmurs. Pulmonary: Non-labored breathing. Abdomen:Non distended, no obvious skin discoloration. Mild epigastric TTP, no guarding, no rebound.Bowel sounds present. Extremities: No lower extremity edema. Neurologic: No focal neurological deficits, no asterixis,. Labs: No results for input(s): WBC, HGB, MCV, PLT, INR in the last 64830 hours. No results for input(s): NA, K, CL, CO2, BUN, CREATININE in the last 79663 hours. No results for input(s): AST, ALT, ALKPHOS, TBILI, ALB in the last 30972 hours. Imaging: No results found. Procedures: No results found for: EGD, COLONOSCOPY, REPORTENDO, FIBROSCAN, PROCEDURE, DATEPROCEDUR Pathology: Reviewed Assessment 59 year old male with a PMH significant for melanoma s/p removal presenting as a transfer from OSH for suspicion of metastatic pancreatic cancer for which we were consulted. Symptoms include 1 month of fatigue, weight loss, nausea vomiting and anorexia. 1- Imaging concerning for pancreatic mass within the tail 2- Liver lesions concerning for metastasis, normal liver enzymes Recommendations Please have CT images uploaded to our system for review. Recommend CA 19 9 level Please consult IR for percutaneous biopsy of liver lesions. Agree with Oncology and palliative Care consults DVT prophylaxis, symptom management of pain and nausea, nutrition The above recommendations were discussed with GI attending, Dr. Pringle. We will continue to follow up. Please contact us with further questions This note was generated using fluency dictation, voice recognition errors are possible. Ramonita Mcknight MD Gastroenterology & Hepatology Fellow [facility] [1] Patient Active Problem List: Pancreatic mass (HCC) [2] Past Medical History: Diagnosis Date Malignant melanoma of skin (HCC) [3] No past surgical history on file. [4] No medications prior to admission. [5] Current Facility-Administered Medications Medication 0.9% NaCl injection 3 mL And 0.9% NaCl injection 1-10 mL acetaminophen (Tylenol) tablet 1,000 mg ondansetron (disintegrating) (Zofran ODT) tablet 4 mg oxyCODONE (immediate release) (Roxicodone) tablet 5 mg Or oxyCODONE (immediate release) (Roxicodone) tablet 10 mg [6] No Known Allergies Cosigned by Jose J Pringle MD at 01/12/2025 2:47 PM CDT Associated attestation - Jose J Pringle MD - 01/12/2025 2:47 PM CDT Images from the original note were not included. GI & Hepatology Attending In Patient Consult Note Diagnosis: Disseminated pancreatic malignancy Plan: Check CA 19.9 Sign off from GI I concur with the plan documented in the [place]/Resident note - please refer to this for further details. Sincerely, Jose J Pringle MD PhD FRCP() Professor of Internal Medicine Director of Neurogastroenterology and Motility Division of Gastroenterology and Hepatology Teaching physician attestation and verification: I attest that I have personally seen and examined this patient with the resident or fellow today and I confirm their assessment and plan. I have participated in medical decision making (or other relevant process) for this service as noted above. I have verified the Medical Student/Fellow/Resident information, personally performed the exam, and independently arrive at the same conclusion. * Kathleen Marquez MD - 01/12/2025 9:18 AM CDTAssociated Order(s): IP CONSULT TO ONCOLOGY Images from the original note were not included. HEMATOLOGY/ONCOLOGY INPATIENT CONSULTATION NOTE Name: Melecio Lim Age: [age] year old Date of : 1965 Date of Service: 01/11/2025 Requesting Provider / PCP: No primary care provider on file. Outpatient Hem/Onc Care Team: N/A Reason for Consult: Pancreatic lesions HEMATOLOGY & ONCOLOGY HISTORY Principal Diagnosis: Pancreatic lesions, pending work up Current Therapy: Pending work up Prior Hematology/Oncology History: -12/2024- poor appetite, weight , loss, nausea, abdominal pain x 1 month. OSH work up per chart revealed pancreatic lesions, liver lesions and LN SUBJECTIVE History of Present Illness Chief Complaint: Concern for pancreatic cancer History of Present Illness: Melecio Lim is a 59 year old male with no significant PMH initially presenting 01/11/2025 with abdominal pain 10, in the center of the abdomen, constant, non radiating, fatigue, nausea and weight loss and found to have pancreatic and liver lesions on imaging at OSH . Hematology/Oncology service c onsulted for work up recs. Gi consulted for work up at [facility]. Unclear melanoma hx. Past Medical & Surgical History Past Medical History: Diagnosis Date Hx of melanoma of skin No past surgical history on file. Past Oncology History Cancer Staging No matching staging information was found for the patient. Oncology History No history exists. Social History Social History Tobacco Use Smoking status: Former Current packs/day: 1.00 Average packs/day: 1 pack/day for 20.0 years (20.0 ttl pk-yrs) Types: Cigarettes Smokeless tobacco: Not on file Substance Use Topics Alcohol use: Not Currently Comment: 0-1 a year Lives with , 1 hr away from [place], adopted daughter. healthy. [employer], works 6 am to 6pm Family History Family History Problem Relation Name Age of Onset Cancer Sister Ana Cancer - Esophageal Brother Jonathon brother with throat or esophageal cancer Medications SCHEDULED MEDICATIONS: 0.9% NaCl injection 3 mL, Intracatheter, q8h acetaminophen (Tylenol) tablet 1,000 mg, Oral, TID pantoprazole EC (Protonix) tablet 40 mg, Oral, QDAY CONTINUOUS MEDICATIONS: PRN MEDICATIONS: Or 0.9% NaCl injection 1-10 mL, Intracatheter, PRN ondansetron (disintegrating) (Zofran ODT) tablet 4 mg, Oral, q6h PRN oxyCODONE (immediate release) (Roxicodone) tablet 10 mg, Oral, q4h PRN oxyCODONE (immediate release) (Roxicodone) tablet 5 mg, Oral, q4h PRN Allergies No Known Allergies OBJECTIVE Physical Exam Vitals: 01/12/25 0628 01/12/25 0631 01/12/25 0916 BP: 125/77 134/84 Pulse: 89 87 Resp: 18 Temp: 98.3 ??F (36.8 ??C) 98.5 ??F (36.9 ??C) SpO2: 95% 97% Height: 1.702 m (5' 7) Wt Readings from Last 3 Encounters: No data found for Wt ECO (Symptomatic but completely ambulatory - Restricted in physically strenuous activity but ambulatory and able to do work of light or sedentary nature) Physical Exam Constitutional: Appearance: Normal appearance. HENT: Head: Atraumatic. Cardiovascular: Rate and Rhythm: Normal rate and regular rhythm. Pulmonary: Effort: Pulmonary effort is normal. Breath sounds: Normal breath sounds. Abdominal: General: Bowel sounds are normal. There is no distension. Palpations: Abdomen is soft. Tenderness: There is abdominal tenderness. Musculoskeletal: Right lower leg: No edema. Left lower leg: No edema. Skin: General: Skin is warm. Neurological: General: No focal deficit present. Mental Status: He is alert and oriented to person, place, and time. Psychiatric: Mood and Affect: Mood normal. Laboratory Results Recent Labs Component Name 01/12/25 0914 WBC 7.7 RBC 3.49* HGB 8.9* HCT 28.0* MCV 80.2 MCHC 31.8 PLTCOUNT 445* NEUTPCT 73.9 LYMPHPCT 9.6* LYMPHABS 0.74* BASOABS 0.04 Recent Labs Component Name 01/12/25 0915 POTASSIUM 3.7 CO2 23 BUN 7 CREATININE 0.55* EGFR >90 GLUCOSE 87 CALCIUM 8.3* MAGNESIUM 1.9 PHOS 3.1 ALT 33 AST 23 ALKPHOS 117 Pathology Results Personally reviewed and summarized above in Hematology & Oncology History Radiology Results Personally reviewed and summarized above in Hematology & Oncology History ASSESSMENT Melecio Lim is a 59 year old male with no significant PMH initially presenting 01/11/2025 with abdominal pain, weight loss and nausea and found to have multiple pancreatic and liver lesions concerning for malignancy. Hematology/Oncology service consulted for work up recs. # Concern for pancreatic cancer - Found to have multiple pancreatic and liver lesions on OSH imaging ( not uploaded to [employer] DD yet, paper chart not available) -Discussed the suspicion for cancer and need for further work up, imaging and biopsy #Nutrition 25 lb weight loss, cancer related - consider spread cutter consult. # Pain - opiate titration per primary RECOMMENDATIONS - Obtain CT abdomen pancreas protocol with contrast - Obtain CT pelvis with con+ CT chest with contrast -Obtain CA 19-9 levels -GI/ IR for biopsy -Await path before further recs can be provided Thank you for the opportunity to participate in the care of this patient. Hem/Onc consult service will follow peripherally pending workup. Please don't hesitate to contact hem/onc consult fellow via the bullet charging machine operator or AMION if any questions or clarifications. Patient may follow-up with Hem/Onc after discharge. at [facility] D/w Dr Crai Marquez MD, PGY-6 Hematology-Oncology Fellow [facility] Cosigned by Helen Alcala MD at 01/12/2025 3:12 PM CDT Associated attestation - Helen Alcala MD - 01/12/2025 3:12 PM CDT HEMATOLOGY/ONCOLOGY ATTENDING PHYSICIAN ATTESTATION: Date of Service: 01/12/2025 Patient was seen and examined and case discussed with the resident/fellow. I confirm their findingsand agree with the plan of care as outlined. 1. Pancreatic lesions: Counseled patient and at bedside on reported concerns for pancreatic tail mass and liver lesions concerning for malignancy. No imaging available at time of consultation. Discussed importance of tissue diagnosis in order to confirm diagnosis and discuss options for treatments. ECOG 1 and no contraindications to chemotherapy. He would be willing to pursue surgery, radiation, systemic therapy if offered with either curative- or palliative-intent. Goals are to be able tolive longer to be around for his adopted child and . 2. Anemia: No clinical bleeding. Reports previously being prescribed iron pills by his PCP, but hasnever had a colonoscopy. Obtain iron panel, B12, folate to assess for reversible contributors. Recommendations: -Labs: Iron panel (iron, ferritin, TIBC), B12, folate, CA19-9 -Imaging: CT Chest/Pancreas/Pelvis w/ contrast -Once imaging obtained, GI or IR consult for biopsy of accessible site (pancreas or liver) for tissue diagnosis Hem/Onc consult service will follow peripherally pending imaging. Please don't hesitate to contact hem/onc consult fellow via the bullet charging machine operator or AMION if any questions or clarifications. Patient may follow-up with Hem/Onc after discharge and wishes to establish care with [facility] if cancer confirmed. Helen Alcala MD [employer] Installerprinter [employer] print [employer], Division of Hematology/Oncology Associate Build Engineer, Hematology/Oncology Fellowship [employer] documented in this encounter Plan of Treatment Upcoming Encounters Date Type Department Care Team (Late st Contact Info) Description 01/27/2025 11:30 AM CDT Appointment [facility] [address] [place] [address] Heather Willoughby PA [address] [place] [address] Scheduled Orders Name Type Priority Associated Diagnoses Order Schedule CT LIVER BIOPSY(04045 & 08819) Imaging Routine Liver masses Expected: 01/27/2025 (Approximate), Expires: 01/13/2026 PATHOLOGY TISSUE Pathology Cytology Routine Liver masses 1 Occurrences starting 01/13/2025 until 01/08/2026 Scheduled Referrals Name Type Priority Associated Diagnoses Order Schedule Ref to [facility] Interventional Rad Outpatient Referral Routine Cancer, metastatic to liver (HCC) 1 Occurrences starting 01/13/2025 until 01/13/2026 Ref to Oncology - [facility] Outpatient Referral Routine Pancreatic mass (HCC) 1 Occurrences starting 01/13/2025 until 01/13/2026 AMB REFERRAL FOR DME Outpatient Referral Routine Pancreatic mass (HCC) 1 Occurrences starting 01/13/2025 until 01/13/2026 REF TO [facility] Outpatient Referral Routine Pancreatic mass (HCC) 1 Occurrences starting 01/13/2025 until 01/13/2026 documented as of this encounter Procedures Procedure Name Priority Date/Time Associated Diagnosis [...] B12 AM Draw 01/13/2025 7:09 AM CDT CANCER ANTIGEN (CA) 19-9 Routine 01/13/2025 7:07 AM CDT TYPE + SCREEN PANEL Routine 01/13/2025 7 :07 AM CDT CBC W/O DIFFERENTIAL AM Draw 01/13/2025 7:07 AM CDT IRON + TRANSFERRIN PANEL Routine 01/13/2025 7:07 AM CDT FERRITIN Routine 01/13/2025 7:07 AM CDT URINALYSIS REFLEX TO MICROSCOPIC NO CULTURE Routine 01/12/2025 10:38 AM CDT COMPREHENSIVE METABOLIC PANEL STAT 01/12/2025 9:15 AM CDT PHOSPHORUS BLOOD STAT 01/12/2025 9:15 AM CDT MAGNESIUM BLOOD STAT 01/12/2025 9:15 AM CDT PT-INR STAT 01/12/2025 9:14 AM CDT CBC W AUTO DIFFERENTIAL STAT 01/12/2025 9:14 AM CDT documented in this encounter Results * CT Pelvis W Contrast (01/13/2025 [...] by Barbara Kan MD > Dictated by [employer], Jasvir Michelle MD have personally reviewed and interpreted this examination/study. > Interpreting Provider: Jasvir Michelle MD on 01/14/2025 7:17 AM Narrative 01/14/2025 7:17 AM CDT PROCEDURE: CT PELVIS W CONTRAST, CT CHEST W CONTRAST, CT PANCREAS WWO CONTRAST, DATE/TIME OF EXAM: 01/13/2025 5:24 PM, LOCATION [facility] INDICATION: K86.89: Pancreatic mass (HCC) ADDITIONAL CLINICAL INFORMATION: Ordering Provider Reason For Exam: mets (accession [id number]), mets (accession [id number]), concern for metastatic malignancy with pancreatic primary (accession [id number]) Technologist Note: Additional: COMPARISON: None. TECHNIQUE: 1.CT [...] DATE/TIME OF EXAM: 01/13/2025 5:24 PM, LOCATION [facility] INDICATION: K86.89: Pancreatic mass (HCC) ADDITIONAL CLINICAL INFORMATION: Ordering Provider Reason For Exam: mets (accession [id number]), mets (accession [id number]), concern for metastatic malignancy with pancreatic primary (accession [id number]) Technologist Note: Additional: COMPARISON: None. TECHNIQUE: 1.CT [...] (image 76 series 5 and image 47 [id number]). No associated pancreatic or biliary ductal obstruction [...] by Barbara Kan MD > Dictated by [employer], Jasvir Michelle MD have personally reviewed [...] in the pelvis. > Dictated by Barbara Kna MD > Dictated by [employer], Jasvir Michelle MD have personally reviewed and interpreted this examination/study. > Interpreting Provider: Jasvir Michelle MD on 01/14/2025 7:17 AM Narrative 01/14/2025 7:17 AM CDT PROCEDURE: CT PELVIS W CONTRAST, CT CHEST W CONTRAST, CT PANCREAS WWO CONTRAST, DATE/TIME OF EXAM: 01/13/2025 5:24 PM, LOCATION [facility] INDICATION: K86.89: Pancreatic mass (HCC) ADDITIONAL CLINICAL INFORMATION: Ordering Provider Reason For Exam: mets (accession [id number]), mets (accession [id number]), concern for metastatic malignancy with pancreatic primary (accession [id number]) Technologist Note: Additional: COMPARISON: None. TECHNIQUE: 1.CT [...] DATE/TIME OF EXAM: 01/13/2025 5:24 PM, LOCATION [facility] INDICATION: K86.89: Pancreatic mass (HCC) ADDITIONAL CLINICAL INFORMATION: Ordering Provider Reason For Exam: mets (accession [id number]), mets (accession [id number]), concern for metastatic malignancy with pancreatic primary (accession [id number]) Technologist Note: Additional: COMPARISON: None. TECHNIQUE: 1.CT [...] (image 76 series 5 and image 47 [id number]). No associated pancreatic or biliary ductal obstruction [...] by Barbara Kan MD > Dictated by [employer], Jasvir Michelle MD have personally reviewed [...] by Barbara Kan MD > Dictated by [employer], Jasvir Michelle MD have personally reviewed and interpreted this examination/study. > Interpreting Provider: Jasvir Michelle MD on 01/14/2025 7:17 AM Narrative 01/14/2025 7:17 AM CDT PROCEDURE: CT PELVIS W CONTRAST, CT CHEST W CONTRAST, CT PANCREAS WWO CONTRAST, DATE/TIME OF EXAM: 01/13/2025 5:24 PM, LOCATION [facility] INDICATION: K86.89: Pancreatic mass (HCC) ADDITIONAL CLINICAL INFORMATION: Ordering Provider Reason For Exam: mets (accession [id number]), mets (accession [id number]), concern for metastatic malignancy with pancreatic primary (accession [id number]) Technologist Note: Additional: COMPARISON: None. TECHNIQUE: 1.CT [...] DATE/TIME OF EXAM: 01/13/2025 5:24 PM, LOCATION [facility] INDICATION: K86.89: Pancreatic mass (HCC) ADDITIONAL CLINICAL INFORMATION: Ordering Provider Reason For Exam: mets (accession [id number]), mets (accession [id number]), concern for metastatic malignancy with pancreatic primary (accession [id number]) Technologist Note: Additional: COMPARISON: None. TECHNIQUE: 1.CT [...] (image 76 series 5 and image 47 [id number]). No associated pancreatic or biliary ductal obstruction [...] by Barbara Kan MD > Dictated by [employer], Jasvir Michelle MD have personally reviewed and interpreted this examination/study. > Interpreting Provider: Jasvir Michelle MD on 57:17 AM Chikis Gao MD CT ORDERABLES Final Result * BLOOD TYPE VERIFICATION (01/13/2025 9:09 AM CDT) ABO Rh A POS 01/13/2025 11:07 AM T [facility] BLOOD [facility] LAB Blood Bank BLOOD SPECIMEN / Unknown Lab Venipuncture / Unknown 01/13/2025 9:09 AM CDT 01/13/2025 9:36 AM CDT Chikis Gao MD LAB - BLOOD BANK ORDERABLES Fi nal Result [facility]OD [facility] LAB [address] [place] [address], [facility] [phone] * (ABNORMAL) RENAL FUNCTION PANEL (01/13/2025 7:09 AM CDT) Pathologist [facility] BUN 12 7 - 26 mg/dL 01/13/2025 8:28 AM [facility] Creatinine 0.57(L) 0.71 - 1.16 mg/dL 01/13/2025 8:28 AM [facility] Sodium 135(L) 136 - 145 mmol/L 01/13/2025 8:28 AM [facility] Potassium 4.0 3.5 - 4.5 mmol/L 01/13/2025 8:28 AM [facility] Chloride 103 98 - 107 mmol/L 01/13/2025 8:28 AM [facility] CO2 25 22 - 29 mmol/L 01/13/2025 8:28 AM [facility] Glucose 103(H) 70 - 99 mg/dL 01/13/2025 8:28 AM [facility] Albumin 2.2(L) 3.4 - 5.0 g/dL 01/13/2025 8:28 AM [facility] Calcium 8.5 8.4 - 10.2 mg/dL 01/13/2025 8:28 AM [facility] Phosphorus 3.1 2.8 - 5.1 mg/dL 01/13/2025 8:28 AM [facility] Anion Gap 7 6 - 16 01/13/2025 8:28 AM [facility] BUN/Creatinine Ratio 21 7 - 23 01/13/2025 8:28 AM [facility] Osmolality Calculated 280 275 - 295 mOsm/kg 01/13/2025 8:28 AM [facility] eGFR by CKD-EPI >90 >=90 mL/min/1.7 3 m2 01/13/2025 8:28 AM [facility] Comment:Estimated Glomerular Filtration Rate (eGFR) calculated using the CKD-EPI Creatinine Equation (2020), per the National Kidney Foundation and [place] Society of Nephrology recommendations. Blood BLOOD SPECIMEN / Unknown Lab Venipuncture / Unknown 01/13/2025 7:09 AM CDT 01/13/2025 7:42 AM CDT us Diana Franco MD LAB - CHEMISTRY ORDERABLES Fi nal Result [address] [address], [place] [phone] * (ABNORMAL) FOLATE (01/13/2025 7:09 AM CDT) Folate 5.9(L) 7.0 - 31.4 ng/mL 01/13/2025 9:00 AM T [facility] Blood BLOOD SPECIMEN / Unknown Lab Venipuncture / Unknown 01/13/2025 7:09 AM CDT 01/13/2025 7:42 AM CDT us Diana Franco MD LAB - CHEMISTRY ORDERABLES Fi nal Result [address] [address] [phone] * (ABNORMAL) VITAMIN B12 (01/13/2025 7:09 AM CDT) Vitamin B12 1,094(H) 213 - 816 pg/mL 01/13/2025 9:00 AM CDT [facility] Blood BLOOD SPECIMEN / Unknown Lab Venipuncture / Unknown 01/13/2025 7:09 AM CDT 01/13/2025 7:42 AM CDT Diana Franco MD LAB - CHEMISTRY ORDERABLES Fi nal Result Performing Organization Address City/[facility]/ZIP Co de Phone Number [place] [phone] [place] [address] * CANCER ANTIGEN (CA) 19-9 (01/13/2025 7:07 AM CDT) CA 19-9 3 <=35 U/mL 01/14/2025 4:33 PM CDT [employer] ([facility]) Comment: INTERPRETIVE INFORMATION: Cancer Antigen-GI (CA 19-9) [...] or absence of malignant disease. Performed By: [employer] [address] [place] [address] [employer] Technician: Russlel Roblero MD, PhD CLIA Number: [id number] Blood BLOOD SPECIMEN / Unknown Lab Venipuncture / Unknown 01/13/2025 7:07 AM CDT 01/13/2025 7:30 AM CDT us Diana Franco MD LAB - CHEMISTRY ORDERABLES Fi nal Result [employer] [facility]) [address] [place] [address], [facility] * TYPE + SCREEN PANEL (01/13/2025 7:07 AM CDT) [facility] Antibody Screen NEG 9:27 AM T [facility] BLOOD BANK LAB ABO Rh A POS 01/13/2025 9:27 AM [facility] B[facility]OD [facility] LAB Blood Bank BLOOD SPECIMEN / Unknown Lab Venipuncture / Unknown 01/13/2025 7:07 AM CDT 01/13/2025 8:12 AM CDT us Dinaa Franco MD LAB - BLOOD BANK ORDERABLES F inal Result [facility] B[facility]OD [facility] LAB [address] [place] [address], [facility] [phone] * (ABNORMAL) CBC W/O DIFFERENTIAL (01/13/2025 7:07 AM CDT) [facility] WBC 8.7 4.0 - 10.7 x10E9/L 01/13/2025 7:45 AM [facility] RBC Count 3.65(L) 4.30 - 5.80 x10E12/L 01/13/2025 7:45 AM [facility] Hemoglobin 9.1(L) 13.3 - 17.5 g/dL 01/13/2025 7:45 AM [facility] Hematocrit 28.6(L) 38.7 - 51.1 % 01/13/2025 7:45 AM [facility] MCV 78.4(L) 80.0 - 98.0 fL 01/13/2025 7:45 AM [facility] MCH 24.9(L) 26.7 - 33.6 pg 01/13/2025 7:45 AM [facility] MCHC 31.8 31.7 - 36.3 g/dL 01/13/2025 7:45 AM [facility] RDW-CV 13.6 11.3 - 14.8 % 01/13/2025 7:45 AM [facility] Platelet Count 475(H) 150 - 420 x10E9/L 01/13/2025 7:45 AM [facility] MPV 10.3 7.8 - 11.4 fL 01/13/2025 7:45 AM CDT [facility] Blood BLOOD SPECIMEN / Unknown Lab Venipuncture / Unknown 01/13/2025 7:07 AM CDT 01/13/2025 7:38 AM CDT us Diana Franco MD LAB - HEMATOLOGY ORDERABLES F inal Result Performing Organization Address City/[facility]/ZIP Co de Phone Number [address] [address], [place] [phone] * (ABNORMAL) FERRITIN (01/13/2025 7:07 AM CDT) Ferritin 2,200(H) 22 - 275 ng/mL 01/13/2025 9:10 AM CDT [facility] Comment:Result obtained by hebert hdz. Blood BLOOD SPECIMEN / Unknown Lab Venipuncture / Unknown 01/13/2025 7:07 AM CDT 01/13/2025 7:30 AM CDT us Diana Franco MD LAB - CHEMISTRY ORDERABLES Fi nal Result Performing Organization Address [facility]/ZIP Co de Phone Number [address] [address], [place] [phone] * (ABNORMAL) IRON + TRANSFERRIN PANEL (01/13/2025 7:07 AM CDT) Iron 11(L) 50 - 175 ug/dL 01/13/2025 8:19 AM CDT [facility] Transferrin 117(L) 174 - 382 mg/dL 01/13/2025 8:19 AM CDT [facility] Transferrin Saturation % 8(L) 16 - 50 % 01/13/2025 8:19 AM CDT [facility] TIBC Calculated 146(L) 240 - 450 ug/dL 01/13/2025 8:19 AM CDT [facility] Blood BLOOD SPECIMEN / Unknown Lab Venipuncture / Unknown 01/13/2025 7:07 AM CDT 01/13/2025 7:30 AM CDT us Diana Franco MD LAB - CHEMISTRY ORDERABLES Fi nal Result Performing Organization Address City/[facility]/ZIP Co de Phone Number [address] [address], [facility] [phone] * URINALYSIS REFLEX TO MICROSCOPIC NO CULTURE (01/12/2025 10:38 AM CDT) Color UA Yellow Yellow, Straw 01/12/2025 11:02 AM [facility] Clarity UA Clear Clear 01/12/2025 11:02 AM [facility] Glucose UA Normal Normal 01/12/2025 11:02 AM [facility] Bilirubin UA Negative Negative 01/12/2025 11:02 AM [facility] Ketone UA Negative Negative 01/12/2025 11:02 AM [facility] Specific [place] UA 1.006 1.005 - 1.030 01/12/2025 11:02 AM [facility] Blood UA Negative Negative 01/12/2025 11:02 AM [facility] pH UA 7.0 5.0 - 8.0 01/12/2025 11:02 AM [facility] Protein UA Negative Negative 01/12/2025 11:02 AM [facility] Urobilinogen UA Normal Normal mg/dL 01/12/2025 11:02 AM [facility] Nitrite UA Negative Negative 01/12/2025 11:02 AM [facility] Leukocyte Esterase UA Negative Negative 01/12/2025 11:02 AM [facility] Urine Microscopy Urine microscopy not indicated 01/12/2025 11:02 AM [facility] Urine URINE SPECIMEN OBTAINED BY CLEAN CATCH PROCEDURE / Unknown Collection / Unknown 01/12/2025 10:38 AM CDT 01/12/2025 10:53 AM CDT us Diana Franco MD LAB - URINALYSIS ORDERABLES F inal Result [address] [address], [facility] [phone] * PHOSPHORUS BLOOD (01/12/2025 9:15 AM CDT) Pathologist [facility] Phosphorus 3.1 2.8 - 5.1 mg/dL 01/12/2025 10:22 AM CDT [facility] Blood BLOOD SPECIMEN / Unknown Lab Venipuncture / Unknown 01/12/2025 9:15 AM CDT 01/12/2025 9:54 AM CDT us Ana Olivarez MD LAB - CHEMISTRY ORDERABLES F inal Result Performing Organization Address City/[facility]/ZIP Co de Phone Number [address] [address], [facility] [phone] * MAGNESIUM BLOOD (01/12/2025 9:15 AM CDT) Pathologist [facility] Magnesium 1.9 1.6 - 2.6 mg/dL 01/12/2025 10:22 AM T [facility] Blood BLOOD SPECIMEN / Unknown Lab Venipuncture / Unknown 01/12/2025 9:15 AM CDT 01/12/2025 9:54 AM CDT us Ana Olivarez MD LAB - CHEMISTRY ORDERABLES F inal Result [address] [address], [facility] [phone] * (ABNORMAL) COMPREHENSIVE METABOLIC PANEL (01/12/2025 9:15 AM CDT) Pathologist [facility] BUN 7 7 - 26 mg/dL 01/12/2025 10:22 AM T [facility] Creatinine 0.55(L) 0.71 - 1.16 mg/dL 01/12/2025 10:22 AM T [facility] Sodium 136 136 - 145 mmol/L 01/12/2025 10:22 AM CDT [facility] Potassium 3.7 3.5 - 4.5 mmol/L 01/12/2025 10:22 AM T [facility] Chloride 106 98 - 107 mmol/L 01/12/2025 10:22 AM CDT [facility] CO2 23 22 - 29 mmol/L 01/12/2025 10:22 AM [facility] Glucose 87 70 - 99 mg/dL 01/12/2025 10:22 AM [facility] Calcium 8.3(L) 8.4 - 10.2 mg/dL 01/12/2025 10:22 AM [facility] Protein Total 6.4 6.0 - 8.3 g/dL 01/12/2025 10:22 AM [facility] Albumin 2.1(L) 3.4 - 5.0 g/dL 01/12/2025 10:22 AM [facility] Bilirubin Total 0.7 0.2 - 1.2 mg/dL 01/12/2025 10:22 AM [facility] Alkaline Phosphatase 117 40 - 150 U/L 01/12/2025 10:22 AM [facility] ALT 33 5 - 55 U/L 01/12/2025 10:22 AM [facility] AST 23 5 - 34 U/L 01/12/2025 10:22 AM [facility] Anion Gap 7 6 - 16 01/12/2025 10:22 AM [facility] BUN/Creatinine Ratio 13 7 - 23 01/12/2025 10:22 AM [facility] Osmolality Calculated 279 275 - 295 mOsm/kg 01/12/2025 10:22 AM [facility] Albumin/Globulin Ratio 0.5(L) 1.1 - 2.3 01/12/2025 10:22 AM [facility] eGFR by CKD-EPI >90 >=90 mL/min/1.7 3 m2 01/12/2025 10:22 AM [facility] Comment:Estimated Glomerular Filtration Rate (eGFR) calculated using the CKD-EPI Creatinine Equation (2020), per the National Kidney Foundation and [place] Society of Nephrology recommendations. Blood BLOOD SPECIMEN / Unknown Lab Venipuncture / Unknown 01/12/2025 9:15 AM CDT 01/12/2025 9:54 AM [facility] Ana Olivarez MD LAB - CHEMISTRY ORDERABLES F inal Result Performing Organization Address [facility]/ZIP Co de Phone Number [address] [address], [facility] [phone] * (ABNORMAL) PT-INR (01/12/2025 9:14 AM CDT) Pathologist [facility] PT 16.6(H) 12.1 - 14.8 Seconds 01/12/2025 10:17 AM [facility] INR 1.4 See Comment 01/12/2025 10:17 AM [facility] Comment:The suggested therap eutic range for standard coumadin (warfarin) therapy is an INR of 2.0-3.0. For high-risk patients (Mechanical Mitral Valve Prosthesis, etc.), the suggested prophylactic therapeutic range is an INR of 2.5-3.5. Blood BLOOD SPECIMEN / Unknown Lab Venipuncture / Unknown 01/12/2025 9:14 AM CDT 01/12/2025 9:54 AM CDT Ana Olivarez MD LAB - COAGULATION ORDERABLES Final Result Performing Organization Address [facility] Co de Phone Number [address] [address], [facility] [phone] * (ABNORMAL) CBC W AUTO DIFFERENTIAL (01/12/2025 9:14 AM CDT) Pathologist [facility] WBC 7.7 4.0 - 10.7 x10E9/L 01/12/2025 9:58 AM [facility] RBC Count 3.49(L) 4.30 - 5.80 x10E12/L 01/12/2025 9:58 AM [facility] Hemoglobin 8.9(L) 13.3 - 17.5 g/dL 01/12/2025 9:58 AM [facility] Hematocrit 28.0(L) 38.7 - 51.1 % 01/12/2025 9:58 AM [facility] MCV 80.2 80.0 - 98.0 fL 01/12/2025 9:58 AM [facility] MCH 25.5(L) 26.7 - 33.6 pg 01/12/2025 9:58 AM [facility] MCHC 31.8 31.7 - 36.3 g/dL 01/12/2025 9:58 AM [facility] RDW-CV 13.7 11.3 - 14.8 % 01/12/2025 9:58 AM [facility] Platelet Count 445(H) 150 - 420 x10E9/L 01/12/2025 9:58 AM [facility] MPV 10.2 7.8 - 11.4 fL 01/12/2025 9:58 AM [facility] Neutrophil % 73.9 41.0 - 74.0 % 01/12/2025 9:58 AM [facility] Lymphocyte % 9.6(L) 17.0 - 47.0 % 01/12/2025 9:58 AM [facility] Monocyte % 10.4 3.0 - 11.0 % 01/12/2025 9:58 AM [facility] Eosinophil % 5.1 0.0 - 7.0 % 01/12/2025 9:58 AM [facility] Basophil % 0.5 0.0 - 1.6 % 01/12/2025 9:58 AM [facility] Immature Granulocytes % 0.5 0.0 - 1.0 % 01/12/2025 9:58 AM [facility] Neutrophil Absolute 5.67 1.60 - 7.50 x10E9/L 01/12/2025 9:58 AM [facility] Lymphocyte Absolute 0.74(L) 1.00 - 4.40 x10E9/L 01/12/2025 9:58 AM [facility] Monocyte Absolute 0.80 0.15 - 1.00 x10E9/L 01/12/2025 9:58 AM [facility] Eosinophil Absolute 0.39 0.00 - 0.60 x10E9/L 01/12/2025 9:58 AM [facility] Basophil Absolute 0.04 0.00 - 0.13 x10E9/L 01/12/2025 9:58 AM CDT [facility] Blood BLOOD SPECIMEN / Unknown Lab Venipuncture / Unknown 01/12/2025 9:14 AM CDT 01/12/2025 9:54 AM CDT Ana Olivarez MD LAB - HEMATOLOGY ORDERABLES Final Result Performing Organization Address City/State/[facility] Co de Phone Number [facility] [address] [place] [id number], [facility] [phone] documented in this encounter Visit Diagnoses Diagnosis Pancreatic mass (HCC)- Primary Unspecified disease of pancreas Pancreatic mass (HCC) Unspecified disease of pancreas Liver masses Unspecified disorder of liver Lymphadenopathy, abdominal Epigastric pain Abdominal pain, epigastric Normocytic anemia Anemia, unspecified Dysuria Cancer, metastatic to liver (HCC) Secondary malignant neoplasm of liver Gastroesophageal reflux disease without esophagitis Esophageal reflux Cancer, metastatic to liver (HCC) Secondary malignant neoplasm of liver Lymphadenopathy, abdominal Epigastric pain Abdominal pain, epigastric Elevated alkaline phosphatase level Other nonspecific abnormal serum enzyme levels Hypoalbuminemia Other disorders of plasma protein metabolism Dysuria Normocytic anemia Anemia, unspecified Gastroesophageal reflux disease without esophagitis Esophageal reflux Liver masses Unspecified disorder of liver Rib pain Chest pain, unspecified * Assessment & Plan Note - Franki Morfin MD - 01/13/2025 4:01 PM CDTAssociated Problem(s): Pancreatic mass (HCC) The patient presented to the OSH with [...] 1g Q8H - Oxy 5/10 Q4H PRN * Assessment & Plan Note - Franki Morfin MD - 01/13/2025 4:01 PM CDTAssociated Problem(s): Lymphadenopathy, abdominal The patient presented to the OSH with [...] 1g Q8H - Oxy 5/10 Q4H PRN * Assessment & Plan Note - Franki Morfin MD - 01/13/2025 4:01 PM CDTAssociated Problem(s): Epigastric pain The patient presented to the OSH with [...] 1g Q8H - Oxy 5/10 Q4H PRN * Assessment & Plan Note - Franki Morfin MD - 01/13/2025 4:01 PM CDTAssociated Problem(s): Liver masses The patient presented to the OSH with [...] 1g Q8H - Oxy 5/10 Q4H PRN * Assessment & Plan Note - Franki Morfin MD - 01/13/2025 4:01 PM CDTAssociated Problem(s): Dysuria Dubois UA, will CTM * Assessment & Plan Note - Franki Morfin MD - 01/13/2025 4:01 PM CDTAssociated Problem(s): Normocytic anemia Iron panel and ferritin suggestive of mixed LALY with anemia of chronic disease. Will CTM. * Assessment & Plan Note - Franki Morfin MD - 01/13/2025 4:01 PM CDTAssociated Problem(s): Gastroesophageal reflux disease without esophagitis Continue home pantoprazole * Assessment & Plan Note - Franki Morfin MD - 01/13/2025 4:01 PM CDTAssociated Problem(s): Rib pain Suspect secondary to a work related injury several weeks ago, will closely follow CT results. * Assessment & Plan Note - Rafaela Celis MD - 01/12/2025 4:52 PM CDT Associated Problem(s): Pancreatic mass (HCC) The patient presented to the OSH with [...] be able to do the biopsy and adjustdiet accordingly - Heme/onc consult, recommend CT chest/pancreas/pelvis with contrast, CA19-9 (ordered). Will followperipherally until tissue biopsy results are back. * Assessment & Plan Note - Rafaela Celis MD - 01/12/2025 4:52 PM CDT Associated Problem(s): Lymphadenopathy, abdominal The patient presented to the OSH with [...] be able to do the biopsy and adjustdiet accordingly - Heme/onc consult, recommend CT chest/pancreas/pelvis with contrast, CA19-9 (ordered). Will followperipherally until tissue biopsy results are back. * Assessment & Plan Note - Rafaela Celis MD - 01/12/2025 4:52 PM CDT Associated Problem(s): Epigastric pain The patient presented to the OSH with [...] be able to do the biopsy and adjustdiet accordingly - Heme/onc consult, recommend CT chest/pancreas/pelvis with contrast, CA19-9 (ordered). Will followperipherally until tissue biopsy results are back. * Assessment & Plan Note - Rafaela Celis MD - 01/12/2025 4:52 PM CDT Associated Problem(s): Liver masses The patient presented to the OSH with [...] be able to do the biopsy and adjustdiet accordingly - Heme/onc consult, recommend CT chest/pancreas/pelvis with contrast, CA19-9 (ordered). Will followperipherally until tissue biopsy results are back. * Assessment & Plan Note - Rafaela Celis MD - 01/12/2025 4:52 PM CDT Associated Problem(s): Dysuria Dubois UA without signs of UTI - CTM symptoms * Assessment & Plan Note - Rafaela Celis MD - 01/12/2025 4:52 PM CDT Associated Problem(s): Normocytic anemia Hgb 8.9 on admission - iron panel, ferritin, B12, folate * Assessment & Plan Note - Rafaela Celis MD - 01/12/2025 4:52 PM CDT Associated Problem(s): Gastroesophageal reflux disease without esophagitis - continue home pantoprazole documented in this encounter Administered Medications Inactive Administered Medications - up to 3 most recent administrations Medication Order MAR Action Action Date Dose Rate Site 0.9% NaCl injection 1-10 mL 1-10 mL, Intracatheter, PRN, Other, peripheral line flush, Starting on Mon01/12/25 at 0744, Until Mon01/13/25 at 2022, Flush peripheral IV catheter with 1-10 mL of normal saline before and after medications and prn to clear blood from the line or to verify patency. 0.9% NaCl injection 3 mL 3 mL, Intracatheter, EVERY 8 HOURS, First dose on Mon01/12/25 at 0815, Until Discontinued, Flush peripheral IV catheter with 3 mL of normal saline every 8 hours. $ Given 01/13/2025 3:01 PM CDT 3 mL $ Given 01/12/2025 7:59 PM CDT 3 mL $ Given 01/12/2025 3:00 PM CDT 3 mL acetaminophen (Tylenol) tablet 1,000 mg 1,000 mg, Oral, 3 TIMES DAILY, First dose on Mon01/12/25 at 0900, Until Discontinued, Patient preference for lesser PRN pain meds may be honored when the patient requests a less strong medication, a lower dose, or a less intrusive route of administration when the lesser drug, dose and route have been ordered for the patient. This patient request must be documented in the MAR. If both oral and IV options are ordered for the same pain severity, give oral first unless patient cannot tolerate oral intake $ Given 01/13/2025 2:52 PM CDT 1,000 mg $ Given 01/13/2025 9:43 AM CDT 1,000 mg $ Given 01/12/2025 7:57 PM CDT 1,000 mg artificial tears ophthalmic solution 1 drop 1 drop, Each Eye, 3 TIMES DAILY PRN, Dry Eyes, Starting on Mon01/12/25 at 1707, Until Mon01/13/25 at 2022 calamine lotion Topical, 3 TIMES DAILY, First dose on Mon01/13/25 at 1100, Until Discontinued, Apply to soles of feet $ Given 01/13/2025 2:58 PM CDT Right Foot dextrose IV 12.5 g 12.5 g, Intravenous, PRN, Other, Bedside Glucose less than 70 mg/dL -If NOT able to eat and/or NPO and with IV Access, Starting on Mon01/13/25 at 0708, Until Mon01/13/25 at 2022, If NOT able to eat and/or NPO and with IV Access: For Bedside Glucose 54-69 mg/dL give 12.5 g Dextrose IV STAT For Bedside Glucose LESS than 54 mg/dl verify with a second Bedside Glucose (from a different site) and give 25 g Dextrose IV STAT Re-check and Re-treat blood glucose EVERY , 10-25 minutes until blood glucose GREATER than or equal to 80 mg/dl. NOTIFY PROVIDER OF HYPOGLYCEMIC EVENT. dextrose IV 25 g 25 g, Intravenous, PRN, Other, Bedside Glucose less than 70 mg/dL -If NOT able to eat and/or NPO and with IV Access, Starting on Mon01/13/25 at 0708, Until Mon01/13/25 at 2022, If NOT able to eat and/or NPO and with IV Access: For Bedside Glucose LESS than 54 mg/dl verify with a second Bedside Glucose (from a different site) and give 25 g Dextrose IV STAT Re-check and Re-treat blood glucose EVERY - 10-25 minutes until blood glucose GREATER than or equal to 80 mg/dl. - If repeat bedside glucose 54-79 give 12.5 g Dextrose IV STAT NOTIFY PROVIDER OF HYPOGLYCEMIC EVENT. folic acid (Folvite) tablet 1 mg 1 mg, Oral, DAILY, First dose on Mon01/13/25 at 1030, Until Discontinued $ Given 01/13/2025 10:30 AM CDT 1 mg glucagon (Glucagen) injection 1 mg 1 mg, Subcutaneous, PRN, Bedside Glucose less than 70 mg/dL - If NOT able to eat and/or NPO and withOUT IV Access, Starting on Mon01/13/25 at 0708, Until Mon01/13/25 at 2022, If NOT able to eat and/or NPO and NO IV Access: For Bedside glucose 54-69 mg/dL - Give 1 mg subcutaneous For Bedside Glucose LESS than 54 mg/dl - verify with a second bedside glucose (from a different site) - Give 1 mg subcutaneous Re-check and Re-treat blood glucose EVERY 10-25 minutes until blood glucose GREATER than or equal to 80 mg/dl. NOTIFY PROVIDER OF HYPOGLYCEMIC EVENT. Reconstitute vial with 1 mL of sterile water for injection for a final concentration of 1 mg/mL; shake vial gently; use immediately and discard unused portion glucose (Diabetic Use) oral gel Oral, PRN, Other, Bedside Glucose less than 70 mg/dL, Starting on Mon01/13/25 at 0708, Until Mon01/13/25 at 2022, If able to take oral medications: For Bedside Glucose 54 - 69 mg/dL Give 15 grams of oral carbohydrates - 1 glucose gel (see MAR) If patient refuses glucose gel, then offer: - 4 ounces of fruit juice OR - 4 ounces non-diet soda OR - 8 ounces of fat-free milk For Bedside Glucose LESS than 54 mg/dL verify with a second Bedside Glucose (from a different site) - If pt is symptomatic, do not delay treatment - If accuracy of the POC glucose is in question, confirm glucose with aSTAT laboratory test Give 30 grams of oral carbohydrates - 2 glucose gels (see MAR) If patient refuses glucose gel, then offer: - 8 ounces of fruit juice OR - 8 ounces non-diet soda OR - 16 ounces of fat-free milk Re-check and Re-treat blood glucose EVERY 10-25 minutes until blood glucose GREATER than or equal to 80 mg/dl. - If on recheck, bedside glucose 54-79 mg/dL - Give 15 grams of oral carbohydrates (see above for choices) NOTIFY PROVIDER OF HYPOGLYCEMIC EVENT. heparin injection 5,000 Units 5,000 Units, Subcutaneous, 2 TIMES DAILY, First dose on Mon01/12/25 at 2100, Until Discontinued $ Given 01/13/2025 9:43 AM CDT 5,000 Units Left Arm $ Given 01/12/2025 7:58 PM CDT 5,000 Units A bd Left Lower Quadrant iopamidol (Isovue 300) 61 % contrast Oral, CONTRAST ONCE, Starting on Mon01/13/25 at 1441, Until Mon01/13/25 at 2022, Mix 30 mL of Isovue with 20-30 ounces of Fluid and drink over 1 hour. Use water with flavoring, juice, or Gatorade. No carbonated beverages and/or ice. Call CT when dosing finished. Approved for oral use. $ Given - Contrast 01/13/2025 2:51 PM CDT 30 mL Mouth iopamidol (Isovue 370) 76 % contrast Intravenous, CONTRAST ONCE, Starting on 01/13/25 at 1705, Until Mon01/13/25 at 2022 $ Given - Contrast 01/13/2025 5:05 PM CDT 100 mL melatonin tablet 3 mg 3 mg, Oral, AT BEDTIME PRN, Insomnia, Starting on 01/12/25 at 1707, Until Mon01/13/25 at 2022 ondansetron (disintegrating) (Zofran ODT) tablet 4 mg 4 mg, Oral, EVERY 6 HOURS PRN, Nausea/Vomiting, Starting on 01/12/25 at 0938, Until Mon01/13/25 at 2022, Dissolved orally on tongue oxyCODONE (immediate release) (Roxicodone) tablet 10 mg 10 mg, Oral, EVERY 6 HOURS PRN, Severe Pain, Starting on 01/12/25 at 0800, Until Mon01/12/25 at 1016, Patient preference for lesser PRN pain meds may be honored when the patient requests a less strong medication, a lower dose, or a less intrusive route of administration when the lesser drug, dose and route have been ordered for the patient. This patient request must be documented in the MAR. If both oral and IV options are ordered for the same pain severity, give oral first unless patient cannot tolerate oral intake $ Given 01/12/2025 9:16 AM CDT 10 mg oxyCODONE (immediate release) (Roxicodone) tablet 10 mg 10 mg, Oral, EVERY 4 HOURS PRN, Severe Pain, Starting on 01/12/25 at 1016, Until Mon01/13/25 at 2022, Patient preference for lesser PRN pain meds may be honored when the patient requests a less strong medication, a lower dose, or a less intrusive route of administration when the lesser drug, dose and route have been ordered for the patient. This patient request must be documented in the MAR. If both oral and IV options are ordered for the same pain severity, give oral first unless patient cannot tolerate oral intake $ Given 01/12/2025 7:57 PM CDT 10 mg oxyCODONE (immediate release) (Roxicodone) tablet 5 mg 5 mg, Oral, EVERY 4 HOURS PRN, Moderate Pain, Starting on Mon01/12/25 at 1016, Until Mon01/13/25 at 2022, Patient preference for lesser PRN pain meds may be honored when the patient requests a less strong medication, a lower dose, or a less intrusive route of administration when the lesser drug, dose and route have been ordered for the patient. This patient request must be documented in the MAR. If both oral and IV options are ordered for the same pain severity, give oral first unless patient cannot tolerate oral intake $ Given 01/13/2025 9:43 AM CDT 5 mg pantoprazole EC (Protonix) tablet 40 mg 40 mg, Oral, DAILY, First dose on Mon01/12/25 at 1100, Until Discontinued, Do not crush, chew, or cut in half. $ Given 01/13/2025 9:43 AM CDT 40 mg $ Given 01/12/2025 11:19 AM CDT 40 mg polyethylene glycol 3350 (Miralax) packet 17 g 17 g, Oral, DAILY, First dose on Mon01/13/25 at 0900, Until Discontinued, 17 g dose: mix in 8 ounces of water, juice, soda, coffee or tea prior to administration. For bowel prep check for other instructions. $ Given 01/13/2025 9:43 AM CDT 17 g senna (Senokot) tablet 8.6 mg 8.6 mg, Oral, DAILY, First dose on Mon01/13/25 at 0900, Until Discontinued $ Given 01/13/2025 9:43 AM CDT 8.6 mg documented in this encounter Active and Recently Administered Medications Times are shown in CDT. Scheduled Medication Order 01/11/2025 01/12/2025 01/13/2025 0.9% NaCl injection 3 mL(Linked Group 1) 3 mL, Intracatheter, EVERY 8 HOURS, First dose on Mon01/12/25 at 0815, Until Discontinued, Flush peripheral IV catheter with 3 mL of normal saline every 8 hours. 0917 ($ Given - Provider: Moises Chacko Nurse)1500 ($ Given - Provider: Moises Chacko Nurse)1959 ($ Given - Provider: Ai Rowan RN) 0600 (Due)1501 ($ Given - Provider: Irina Gale RN) acetaminophen (Tylenol) tablet 1,000 mg 1,000 mg, Oral, 3 TIMES DAILY, First dose on Mon01/12/25 at 0900, Until Discontinued, Patient preference for lesser PRN pain meds may be honored when the patient requests a less strong medication, a lower dose, or a less intrusive route of administration when the lesser drug, dose and route have been ordered for the patient. This patient request must be documented in the MAR. If both oral and IV options are ordered for the same pain severity, give oral first unless patient cannot tolerate oral intake 0916 ($ Given - Provider: Moises Chacko Nurse)1459 ($ Given - Provider: Moises Chacko Nurse)1956 ($ Given - Provider: Ai Rowan RN) 0943 ($ Given - Provider: Irina Gale RN)1452 ($ Given - Provider: Irina Gale RN) calamine lotion Topical, 3 TIMES DAILY, First dose on Mon01/13/25 at 1100, Until Discontinued, Apply to soles of feet 1100 (Not Administer ed - Provider: Irina Gale RN - Reason: See Comments - Comment: medication administration delay due to delay in pharamcy delivery)1458 ($ Given - Provider: Irina Gale RN) folic acid (Folvite) tablet 1 mg 1 mg, Oral, DAILY, First dose on Mon01/13/25 at 1030, Until Discontinued 1030 ($ Given - Prov ider: Irina Gale RN) heparin injection 5,000 Units 5,000 Units, Subcutaneous, 2 TIMES DAILY, First dose on Mon01/12/25 at 2100, Until Discontinued 1957 ($ Given - Provider: Ai Rowan RN) 0943 ($ Given - Provider: Irina Gale RN) iopamidol (Isovue 300) 61 % contrast Oral, CONTRAST ONCE, Starting on Mon01/13/25 at 1441, Until Mon01/13/25 at 2022, Mix 30 mL of Isovue with 20-30 ounces of Fluid and drink over 1 hour. Use water with flavoring, juice, or Gatorade. No carbonated beverages and/or ice. Call CT when dosing finished. Approved for oral use. 1451 ($ Given - Cont rast - Provider: Irina Gale RN) iopamidol (Isovue 370) 76 % contrast Intravenous, CONTRAST ONCE, Starting on Mon01/13/25 at 1705, Until Mon01/13/25 at 2022 1705 ($ Given - Cont rast - Provider: Remi Bryson, RT(R)CT) pantoprazole EC (Protonix) tablet 40 mg 40 mg, Oral, DAILY, First dose on Mon01/12/25 at 1100, Until Discontinued, Do not crush, chew, or cut in half. 1119 ($ Given - Provider: Gabby Eastman, Graduate Nurse) 0943 ($ Given - Provider: Irina Gale RN) polyethylene glycol 3350 (Miralax) packet 17 g 17 g, Oral, DAILY, First dose on Mon01/13/25 at 0900, Until Discontinued, 17 g dose: mix in 8 ounces of water, juice, soda, coffee or tea prior to administration. For bowel prep check for other instructions. 0943 ($ Given - Prov ider: Irina Gale RN) senna (Senokot) tablet 8.6 mg 8.6 mg, Oral, DAILY, First dose on Mon01/13/25 at 0900, Until Discontinued 0943 ($ Given - Prov ider: Irina Gale RN) PRN Medication Order 01/11/2025 01/12/2025 01/13/2025 0.9% NaCl injection 1-10 mL(Linked Group 1) 1-10 mL, Intracatheter, PRN, Other, peripheral line flush, Starting on Mon01/12/25 at 0744, Until Mon01/13/25 at 2022, Flush peripheral IV catheter with 1-10 mL of normal saline before and after medications and prn to clear blood from the line or to verify patency. artificial tears ophthalmic solution 1 drop 1 drop, Each Eye, 3 TIMES DAILY PRN, Dry Eyes, Starting on Mon01/12/25 at 1707, Until Mon01/13/25 at 2022 dextrose IV 12.5 g(Linked Group 2) 12.5 g, Intravenous, PRN, Other, Bedside Glucose less than 70 mg/dL -If NOT able to eat and/or NPO and with IV Access, Starting on Mon01/13/25 at 0708, Until Mon01/13/25 at 2022, If NOT able to eat and/or NPO and with IV Access: For Bedside Glucose 54-69 mg/dL give 12.5 g Dextrose IV STAT For Bedside Glucose LESS than 54 mg/dl verify with a second Bedside Glucose (from a different site) and give 25 g Dextrose IV STAT Re-check and Re-treat blood glucose EVERY , 10-25 minutes until blood glucose GREATER than or equal to 80 mg/dl. NOTIFY PROVIDER OF HYPOGLYCEMIC EVENT. dextrose IV 25 g(Linked Group 2) 25 g, Intravenous, PRN, Other, Bedside Glucose less than 70 mg/dL -If NOT able to eat and/or NPO and with IV Access, Starting on Mon01/13/25 at 0708, Until Mon01/13/25 at 2022, If NOT able to eat and/or NPO and with IV Access: For Bedside Glucose LESS than 54 mg/dl verify with a second Bedside Glucose (from a different site) and give 25 g Dextrose IV STAT Re-check and Re-treat blood glucose EVERY - 10-25 minutes until blood glucose GREATER than or equal to 80 mg/dl. - If repeat bedside glucose 54-79 give 12.5 g Dextrose IV STAT NOTIFY PROVIDER OF HYPOGLYCEMIC EVENT. glucagon (Glucagen) injection 1 mg(Linked Group 2) 1 mg, Subcutaneous, PRN, Bedside Glucose less than 70 mg/dL - If NOT able to eat and/or NPO and withOUT IV Access, Starting on Mon01/13/25 at 0708, Until Mon01/13/25 at 2022, If NOT able to eat and/or NPO and NO IV Access: For Bedside glucose 54-69 mg/dL - Give 1 mg subcutaneous For Bedside Glucose LESS than 54 mg/dl - verify with a second bedside glucose (from a different site) - Give 1 mg subcutaneous Re-check and Re-treat blood glucose EVERY 10-25 minutes until blood glucose GREATER than or equal to 80 mg/dl. NOTIFY PROVIDER OF HYPOGLYCEMIC EVENT. Reconstitute vial with 1 mL of sterile water for injection for a final concentration of 1 mg/mL; shake vial gently; use immediately and discard unused portion glucose (Diabetic Use) oral gel Oral, PRN, Other, Bedside Glucose less than 70 mg/dL, Starting on Mon01/13/25 at 0708, Until Mon01/13/25 at 2022, If able to take oral medications: For Bedside Glucose 54 - 69 mg/dL Give 15 grams of oral carbohydrates - 1 glucose gel (see MAR) If patient refuses glucose gel, then offer: - 4 ounces of fruit juice OR - 4 ounces non-diet soda OR - 8 ounces of fat-free milk For Bedside Glucose LESS than 54 mg/dL verify with a second Bedside Glucose (from a different site) - If pt is symptomatic, do not delay treatment - If accuracy of the POC glucose is in question, confirm glucose with aSTAT laboratory test Give 30 grams of oral carbohydrates - 2 glucose gels (see MAR) If patient refuses glucose gel, then offer: - 8 ounces of fruit juice OR - 8 ounces non-diet soda OR - 16 ounces of fat-free milk Re-check and Re-treat blood glucose EVERY 10-25 minutes until blood glucose GREATER than or equal to 80 mg/dl. - If on recheck, bedside glucose 54-79 mg/dL - Give 15 grams of oral carbohydrates (see above for choices) NOTIFY PROVIDER OF HYPOGLYCEMIC EVENT. melatonin tablet 3 mg 3 mg, Oral, AT BEDTIME PRN, Insomnia, Starting on 01/12/25 at 1707, Until Mon01/13/25 at 2022 ondansetron (disintegrating) (Zofran ODT) tablet 4 mg 4 mg, Oral, EVERY 6 HOURS PRN, Nausea/Vomiting, Starting on 01/12/25 at 0938, Until Mon01/13/25 at 2022, Dissolved orally on tongue oxyCODONE (immediate release) (Roxicodone) tablet 10 mg (CANCELED) 10 mg, Oral, EVERY 6 HOURS PRN, Severe Pain, Starting on 01/12/25 at 0800, Until 01/12/25 at 1016, Patient preference for lesser PRN pain meds may be honored when the patient requests a less strong medication, a lower dose, or a less intrusive route of administration when the lesser drug, dose and route have been ordered for the patient. This patient request must be documented in the MAR. If both oral and IV options are ordered for the same pain severity, give oral first unless patient cannot tolerate oral intake 0916 ($ Given - Provider: Gabby Eastman, Graduate Nurse) oxyCODONE (immediate release) (Roxicodone) tablet 10 mg(Linked Group 3) 10 mg, Oral, EVERY 4 HOURS PRN, Severe Pain, Starting on 01/12/25 at 1016, Until Mon01/13/25 at 2022, Patient preference for lesser PRN pain meds may be honored when the patient requests a less strong medication, a lower dose, or a less intrusive route of administration when the lesser drug, dose and route have been ordered for the patient. This patient request must be documented in the MAR. If both oral and IV options are ordered for the same pain severity, give oral first unless patient cannot tolerate oral intake 1956 ($ Given - Provider: Ai Rowan RN) 0943 (See Alternative - Provider: Irina Gale RN) oxyCODONE (immediate release) (Roxicodone) tablet 5 mg(Linked Group 3) 5 mg, Oral, EVERY 4 HOURS PRN, Moderate Pain, Starting on 01/12/25 at 1016, Until Mon01/13/25 at 2022, Patient preference for lesser PRN pain meds may be honored when the patient requests a less strong medication, a lower dose, or a less intrusive route of administration when the lesser drug, dose and route have been ordered for the patient. This patient request must be documented in the MAR. If both oral and IV options are ordered for the same pain severity, give oral first unless patient cannot tolerate oral intake 1956 (See Alternative - Provider: Ai Rowan RN) 0943 ($ Given - Provider: Irina Gale RN) Linked Groups Order Group 1: SALINE LOCK, INSERT AND MAINTAIN (CANCELED) Routine, CONTINUOUS, Starting on 01/12/25 at 0745, Until Specified, New collection And 0.9% NaCl injection 3 mLJump to med 3 mL, Intracatheter, EVERY 8 HOURS, First dose on 01/12/25 at 0815, Until Discontinued, Flush peripheral IV catheter with 3 mL of normal saline every 8 hours. And 0.9% NaCl injection 1-10 mLJump to med 1-10 mL, Intracatheter, PRN, Other, peripheral line flush, Starting on Mon01/12/25 at 0744, Until Mon01/13/25 at 2022, Flush peripheral IV catheter with 1-10 mL of normal saline before and after medications and prn to clear blood from the line or to verify patency. Group 2: dextrose IV 12.5 gJump to med 12.5 g, Intravenous, PRN, Other, Bedside Glucose less than 70 mg/dL -If NOT able to eat and/or NPO and with IV Access, Starting on Mon01/13/25 at 0708, Until Mon01/13/25 at 2022, If NOT able to eat and/or NPO and with IV Access: For Bedside Glucose 54-69 mg/dL give 12.5 g Dextrose IV STAT For Bedside Glucose LESS than 54 mg/dl verify with a second Bedside Glucose (from a different site) and give 25 g Dextrose IV STAT Re-check and Re-treat blood glucose EVERY , 10-25 minutes until blood glucose GREATER than or equal to 80 mg/dl. NOTIFY PROVIDER OF HYPOGLYCEMIC EVENT. Or dextrose IV 25 gJump to med 25 g, Intravenous, PRN, Other, Bedside Glucose less than 70 mg/dL -If NOT able to eat and/or NPO and with IV Access, Starting on Mon01/13/25 at 0708, Until Mon01/13/25 at 2022, If NOT able to eat and/or NPO and with IV Access: For Bedside Glucose LESS than 54 mg/dl verify with a second Bedside Glucose (from a different site) and give 25 g Dextrose IV STAT Re-check and Re-treat blood glucose EVERY - 10-25 minutes until blood glucose GREATER than or equal to 80 mg/dl. - If repeat bedside glucose 54- 79 give 12.5 g Dextrose IV STAT NOTIFY PROVIDER OF HYPOGLYCEMIC EVENT. Or glucagon (Glucagen) injection 1 mgJump to med 1 mg, Subcutaneous, PRN, Bedside Glucose less than 70 mg/dL - If NOT able to eat and/or NPO and withOUT IV Access, Starting on Mon01/13/25 at 0708, Until Mon01/13/25 at 2022, If NOT able to eat and/or NPO and NO IV Access: For Bedside glucose 54- 69 mg/dL - Give 1 mg subcutaneous For Bedside Glucose LESS than 54 mg/dl - verify with a second bedside glucose (from a different site) - Give 1 mg subcutaneous Re-check and Re-treat blood glucose EVERY 10-25 minutes until blood glucose GREATER than or equal to 80 mg/dl. NOTIFY PROVIDER OF HYPOGLYCEMIC EVENT. Reconstitute vial with 1 mL of sterile water for injection for a final concentration of 1 mg/mL; shake vial gently; use immediately and discard unused portion Group 3: oxyCODONE (immediate release) (Roxicodone) tablet 5 mgJump to med 5 mg, Oral, EVERY 4 HOURS PRN, Moderate Pain, Starting on 01/12/25 at 1016, Until Mon01/13/25 at 2022, Patient preference for lesser PRN pain meds may be honored when the patient requests a less strong medication, a lower dose, or a less intrusive route of administration when the lesser drug, dose and route have been ordered for the patient. This patient request must be documented in the MAR. If both oral and IV options are ordered for the same pain severity, give oral first unless patient cannot tolerate oral intake Or oxyCODONE (immediate release) (Roxicodone) tablet 10 mgJump to med 10 mg, Oral, EVERY 4 HOURS PRN, Severe Pain, Starting on 01/12/25 at 1016, Until Mon01/13/25 at 2022, Patient preference for lesser PRN pain meds may be honored when the patient requests a less strong medication, a lower dose, or a less intrusive route of administration when the lesser drug, dose and route have been ordered for the patient. This patient request must be documented in the MAR. If both oral and IV options are ordered for the same pain severity, give oral first unless patient cannot tolerate oral intake documented in this encounter
--- OUTSIDE RECORDS SUMMARY | 2025-01-15 12:34 | XMS_ITS | Encounter Summary ---
Author Organization [facility] Address [address] [place] [address] Care Team Providers Care Catalogue Clerk Name Role Phone Jian Worthington MD Primary Care Provider [phone] Encounter Details Date Type Department Care Team (Late st Contact Info) Description 02/13/[address] [facility] EPICCARE LINK Jian Worthington MD [address] [place] [address] Social History Tobacco Use Types [...] Description 01/21/2025 8:45 AM CDT Office Visit [facility] [place] [id number] Ubaldo Marinelli MD [address] [address] documented as of this encounter Visit Diagnoses Diagnosis Malignant melanoma (CMS/HCC [facility]/HCC)- Primary Melanoma of skin, site unspecified documented in this encounter Care Teams Catalogue Clerk Relationship Specialty Start Date End Date Jian Worthington MD [address] [place] [address] PCP - General HEMATOLOGY/ONCOLOGY 03/22/19 documented as of this encounter
--- OUTSIDE RECORDS SUMMARY | 2025-01-15 12:34 | XMS_ITS | Clinical Summary ---
Author Organization [facility] Address [address] [place] [address] Care Team Providers Care Pallet Rectifier Name Role Phone Jian Worthington MD Primary Care Provider [phone] Encounters Date Type Department Care Team Description 01/10/2025 Orders Only [facility] [address] [place] [address] Ubaldo Marinelli MD 01/10/2025 Orders Only [facility] [address] [place] [address] Ubaldo Marinelli MD 12/17/2024 Telephone [facility] [address] [place] [address] Ubaldo Marinelli MD Appointment Request 12/17/2024 Telephone [facility] [address] [place] [address] Ubaldo Marinelli MD Concerns from Last 3 [...] Description 01/21/2025 8:45 AM CDT Office Visit [facility] [place] [address] Ubaldo Marinelli MD [address] [facility] [address] [place] [address] Health Maintenance Due Date Last Done Comments [...] patient's age to complete this topic Insurance [facility] Care Teams Pallet Rectifier Relationship Specialty Start Date End Date Jian Worthington MD [address] [place] [address] PCP - General HEMATOLOGY/ONCOLOGY 03/22/19
[2025-01-15 12:51] LABS: Hematocrit 30.1 % (40.0-54.0); Hemoglobin 9.1 g/dL (14.0-18.0); Immature Granulocyte Percent A 0.6 % (0.0-0.0); Immature Platelet Fraction Pct 1.5 % (1.0-7.0); Lymphocytes Absolute Auto 1.32 K/mm3 (1.10-4.50); Mean Corpuscular HGB Conc 30.2 g/dL (32-36); Mean Corpuscular Hemoglobin 24.6 pg (27.0-31.0); Mean Corpuscular Volume 81.4 fL (78.0-102.0); Nucleated Red Blood Cells Absolute Auto 0.00 K/mm3 (0.00-0.00); Nucleated Red Blood Cells Perc 0.0 % (0-0.0); Platelet Count Result 589 K/mm3 (150-420); Red Blood Count 3.70 M/mm3 (4.70-6.10); White Blood Count 8.6 K/mm3 (4.8-10.8)
[2025-01-15 13:35] LABS: Alanine Aminotransferase 50 U/L (6-50); Albumin Level 3.4 g/dL (3.5-5.1); Alkaline Phosphatase 193 U/L (38-126); Anion Gap 10 mmol/L (4-12); Aspartate Amino Transferase 48 U/L (17-59); Bilirubin,Total 0.9 mg/dL (0.2-1.3); Blood Urea Nitrogen 11 mg/dL (9-20); Calcium 9.0 mg/dL (8.4-10.2); Carbon Dioxide 27 mmol/L (22-30); Chloride 98 mmol/L (98-107); Estimated Glomerular Filt Rate > 60; Glucose 97 mg/dL (65-110); Osmolality Calculated 279 mOsm/kg (285-295); Potassium 5.1 mmol/L (3.4-5.0); Sodium 135 mmol/L (137-145); Total Protein 6.7 g/dL (6.3-8.2)
[2025-01-15 14:31] VITALS: BMI 24.1
[2025-01-15 14:32] VITALS: BP 132/83; PULSE 83; RESP 16; TEMP 36.6; O2SAT 98
[2025-01-15] MEDS: SODIUM CHLORIDE 0.9% IV 1,000 ML 1000 ML IVPB (14:42)
--- NOTE | 2025-01-15 16:35 | PC.NURSE ---
Patient's IV fluids completed. No c/o offered. IV removed with cath intact. Pressure applied to site, small dressing applied. Instructions given for IV site care.
== END 2025-01-15 16:15 | disposition home or self-care (01) ==
LOC: CHSLAB 12:45 → CHSTREATRM 14:19
PROVIDERS: PCP Nurse Practitioner Family; Visit Provider Nurse Practitioner Family
DX: E87.1 Hypo-osmolality and hyponatremia (principal); K86.89 Other specified diseases of pancreas; R62.7 Adult failure to thrive; Z68.24 Body mass index [BMI] 24.0-24.9, adult
CPT/HCPCS: 36415; 80053; 85025; 85055; 96360; J7030

== ENCOUNTER 2025-01-20 09:05 | Outpatient (CLI) | payer BC, SELFPAY ==
--- OUTSIDE RECORDS SUMMARY | 2025-01-20 09:27 | XMS_ITS | Encounter Summary ---
Author Organization [facility] Address [address] [facility] [address] [facility] [place] [address] Care Team Providers Care New Home Sales Consultant Name Role Phone Unavailable Primary Care Provider Unavailabl e Encounter Details Date Type Department Care Team (Late st Contact Info) Description 01/14/2025 Orders Only [facility] - Hematology/Oncology [address] [place] [address] Rashawn Khan R, DO Social [...] and heating? Not hard at all 01/12/2025 [facility] of Occupat ional Health - Occupational Stress [...] any time in the past 12 m [facility], were you homeless or living in a long term (including now)? No 01/12/2025 Sex and Gender [...] Info) Description 01/27/2025 11:30 AM CDT Appointment [facility] [address] [place] [address] Heather Willoughby PA [address] [place] [address] documented as of this encounter Visit Diagnoses Not on filedocumented in this encounter
--- OUTSIDE RECORDS SUMMARY | 2025-01-20 09:27 | XMS_ITS | Encounter Summary ---
Author Organization [facility] Address [address] [facility] [place] [address] Care Team Providers Care Supervisor Conditioning Yard Name Role Phone Unavailable Primary Care Provider Unavailabl e Encounter Details Date Type Department Care Team (Late st Contact Info) Description 01/15/2025 Telephone Transitional Care at [facility] [address] [place] [phone] Laura Infante RN Social History Tobacco [...] and heating? Not hard at all 01/12/2025 [facility] [place] of Occupat ional Health - Occupational Stress [...] any time in the past 12 m [facility], were you homeless or living in [...] Description 01/27/2025 11:[address] [facility] [address] [place] [address] Heather Willoughby PA [address] [place] [id number] documented as of this encounter Visit Diagnoses Not on filedocumented in this encounter
--- OUTSIDE RECORDS SUMMARY | 2025-01-20 09:28 | XMS_ITS | Clinical Summary ---
Author Organization [facility] (formerly [facility]) Address [address] [place] [address] Care Team Providers Care Supervisor [employer] Name Role Phone Unavailable Primary Care Provider Unavailabl e Source Comments [facility] (formerly [facility]),non-owned Affiliates and Associated Physician Practices is amultiple site organization consisting of ambulatory clinics and hospital sitesin [place], [place], [place] and [place]. This disclosure is being madepursuant to the Care Everywhere program and may not contain all information available regarding this patient. Last updated 18.[employer] [facility] ([facility] Allergies No known active allergies Medications * Be aware that medications may not be up to date on this document. Alwaysverify current medications with the patient. polyethylene glycol 3350 (Miralax) 17 GM/SCOOP powder Take 17 (seventeen) g by mouth once daily 238 g 01/14/2025 Active sennosides (Senokot) 8.6 MG tablet Take 1 (one) tablet by mouth once daily for 10 days 10 tablet 01/13/2025 4:27 PM CDT 01/14/2025 Active folic acid (Folvite) 1 MG tablet Take 1 (one) tablet by mouth once daily 90 tablet 01/13/2025 4:27 PM CDT 01/13/2025 Active pantoprazole EC (Protonix) 40 MG tablet Take 1 (one) tablet by mouth once daily 90 tablet 3 01/13/2025 4:27 PM CDT 01/14/2025 Active oxyCODONE, immediate release, (Roxicodone) 5 MG tabletIndicatio ns:Pancreatic mass (HCC) Take 1 (one) tablet by mouth every 4 hours as needed 12 tablet 01/13/2025 4:27 PM CDT 01/13/2025 Active Problems Problem Noted Date Diagnosed Date [...] Assessment & Plan (01/13/2025 4:01 PM CDT): [place]enton UA, will CTM Assessment & Plan (01/12/2025 4:52 PM CDT): [place] UA without signs of UTI - CTM [...] regimen: - Tylenol 1g Q8H - Oxy /10 Q4H PRN Assessment & Plan (01/12/2025 4:52 [...] Type Department Care Team Description 01/15/2025 Telephone [facility] - GI [address] [place] [phone] Giovanna Aquino, RN Appointment 01/15/2025 Telephone Transitional Care at [address] [address] Laura Infante, development system efficiency manager 01/15/2025 Telephone Transitional Care at [address] [phone] Laura Infante, RN 01/14/2025 Telephone Transitional Care at [address] [phone] Laura Infante, development system efficiency manager 01/14/2025 Orders Only [facility] - Hematology/Oncolog y [address] [place] [address] Rashawn Khan DO 01/12/2025 6:25 AM CDT - 01/13/2025 7:23 PM CDT Hospital Encounter [facility] 6S ACUTE [address] [place] [phone] Ana Olivarez MD Bastin, Taylor J, MD Bhalla, Kishley, MD Gastroenterology Discharge Disposition: Home or Self Care 01/12/2025 Travel 01/11/2025 Telephone [facility] [address] [place] [phone] Ana Olivarez MD Hospital Admission from Last [...] and heating? Not hard at all 01/12/2025 [facility] [place] of Occupat ional Health - Occupational Stress [...] time in the past 12 m [facility], were you homeless or living in a retirement (including now)? No 01/12/2025 Sex and Gender [...] Info) Description 01/27/2025 11:30 AM CDT Appointment [facility] IVR [address] [place] [address] Heather Willoughby PA [address] [place] [phone] Health Maintenance Due Date Last Done Comments [...] disease in the pelvis. > Dictated by Hasaan Lucius, MD > Dictated by [employer] Helper I, Jasvir Michelle MD have personally reviewed and interpreted this examination/study. > Interpreting Provider: Jasvir Michelle MD on 01/14/2025 7:17 AM Narrative 01/14/2025 7:17 AM CDT PROCEDURE: CT PELVIS W CONTRAST, CT CHEST W CONTRAST, CT PANCREAS WWO CONTRAST, DATE/TIME OF EXAM: 01/13/2025 5:24 PM, LOCATION [facility] INDICATION: K86.89: Pancreatic mass (HCC) ADDITIONAL CLINICAL INFORMATION: Ordering Provider Reason For Exam: mets (accession [id number]), mets (accession [id number]), concern for metastatic malignancy with pancreatic primary (accession [id number]) Technologist Note: Additional: COMPARISON: None. TECHNIQUE: 1.CT [...] DATE/TIME OF EXAM: 01/13/2025 5:24 PM, LOCATION [facility] INDICATION: K86.89: Pancreatic mass (HCC) ADDITIONAL CLINICAL INFORMATION: Ordering Provider Reason For Exam: mets (accession [id number]), mets (accession [id number]), concern for metastatic malignancy with pancreatic primary (accession [id number]) Technologist Note: Additional: COMPARISON: None. TECHNIQUE: 1.CT [...] (image 76 series 5 and image 47 [id number]). No associated pancreatic or biliary ductal obstruction [...] by Barbara Kan MD > Dictated by [employer] Hel[employer] I, Jsavir Michelle MD have personally reviewed and interpreted [...] by Barbara Kan MD > Dictated by [employer] Helper I, Jasvir Michelle MD have personally reviewed and interpreted this examination/study. > Interpreting Provider: Jasvir Michelle MD on 01/14/2025 7:17 AM Narrative 01/14/2025 7:17 AM CDT PROCEDURE: CT PELVIS W CONTRAST, CT CHEST W CONTRAST, CT PANCREAS WWO CONTRAST, DATE/TIME OF EXAM: 01/13/2025 5:24 PM, LOCATION [facility] INDICATION: K86.89: Pancreatic mass (HCC) ADDITIONAL CLINICAL INFORMATION: Ordering Provider Reason For Exam: mets (accession [id number]), mets (accession [id number]), concern for metastatic malignancy with pancreatic primary (accession [id number]) Technologist Note: Additional: COMPARISON: None. TECHNIQUE: 1.CT [...] DATE/TIME OF EXAM: 01/13/2025 5:24 PM, LOCATION [facility] INDICATION: K86.89: Pancreatic mass (HCC) ADDITIONAL CLINICAL INFORMATION: Ordering Provider Reason For Exam: mets (accession [id number]), mets (accession [id number]), concern for metastatic malignancy with pancreatic primary (accession [id number]) Technologist Note: Additional: COMPARISON: None. TECHNIQUE: 1.CT [...] (image 76 series 5 and image 47 [id number]). No associated pancreatic or biliary ductal obstruction [...] by Barbara Kan MD > Dictated by [employer] I, Jasvir Michelle MD have personally reviewed and interpreted this examination/study. > Interpreting Provider: Jasvir Michelle MD on 57:17 AM Chikis Gao MD CT ORDERABLES Final Result * CT Pancreas Wwo Contrast (01/13/2025 5:24 PM CDT) Anatomical Region Laterality Modality Abdomen Computed Tomogra phy 01/13/2025 9:1 9 PM CDT Impressions 01/14/2025 7:17 AM CDT [...] by Barbara Kan MD > Dictated by [employer] Hel[employer] I, Jasvir Michelle MD have personally reviewed and interpreted this examination/study. > Interpreting Provider: Jasvir Michelle MD on 01/14/2025 7:17 AM Narrative 01/14/2025 7:17 AM CDT PROCEDURE: CT PELVIS W CONTRAST, CT CHEST W CONTRAST, CT PANCREAS WWO CONTRAST, DATE/TIME OF EXAM: 01/13/2025 5:24 PM, LOCATION [facility] INDICATION: K86.89: Pancreatic mass (HCC) ADDITIONAL CLINICAL INFORMATION: Ordering Provider Reason For Exam: mets (accession [id number]), mets (accession [id number]), concern for metastatic malignancy with pancreatic primary (accession [id number]) Technologist Note: Additional: COMPARISON: None. TECHNIQUE: 1.CT [...] DATE/TIME OF EXAM: 01/13/2025 5:24 PM, LOCATION [facility] INDICATION: K86.89: Pancreatic mass (HCC) ADDITIONAL CLINICAL INFORMATION: Ordering Provider Reason For Exam: mets (accession [id number]), mets (accession [id number]), concern for metastatic malignancy with pancreatic primary (accession [id number]) Technologist Note: Additional: COMPARISON: None. TECHNIQUE: 1.CT [...] (image 76 series 5 and image 47 [id number]). No associated pancreatic or biliary ductal obstruction [...] by Barbara Kan MD > Dictated by [employer] Helper I, Jasvir Michelle MD have personally reviewed and interpreted this examination/study. > Interpreting Provider: Jasvir Michelle MD on 57:17 AM Chikis Gao MD CT ORDERABLES Final Result * BLOOD TYPE VERIFICATION (01/13/2025 9:09 AM CDT) ABO Rh A POS 01/13/2025 11:07 AM CDT [facility] BLOOD BANK LAB Blood Bank BLOOD SPECIMEN / Unknown Lab Venipuncture / Unknown 01/13/2025 9:09 AM CDT 01/13/2025 9:36 AM CDT Chikis Gao MD LAB - BLOOD BANK ORDERABLES Fi nal Result [facility] BLOOD BANK LAB [address] [place] [address], [facility] [phone] * (ABNORMAL) RENAL FUNCTION PANEL (01/13/2025 7:09 AM CDT) BUN 12 7 - 26 mg/dL 01/13/2025 8:28 AM [facility] Creatinine 0.57(L) 0.71 - 1.16 mg/dL 01/13/2025 8:28 AM [facility] Sodium 135(L) 136 - 145 mmol/L 01/13/2025 8:28 AM [facility] Potassium 4.0 3.5 - 4.5 mmol/L 01/13/2025 8:28 AM [facility] Chloride 103 98 - 107 mmol/L 01/13/2025 8:28 AM [facility] CO2 25 22 - 29 mmol/L 01/13/2025 8:28 AM [facility] Glucose 103(H) 70 - 99 mg/dL 01/13/2025 8:28 AM [facility] Albumin 2.2(L) 3.4 - 5.0 g/dL 01/13/2025 8:28 AM [facility] Calcium 8.5 8.4 - 10.2 mg/dL 01/13/2025 8:28 AM [facility] Phosphorus 3.1 2.8 - 5.1 mg/dL 01/13/2025 8:28 AM [facility] Anion Gap 7 6 - 16 01/13/2025 8:28 AM [facility] BUN/Creatinine Ratio 21 7 - 23 01/13/2025 8:28 AM [facility] Osmolality Calculated 280 275 - 295 mOsm/kg 01/13/2025 8:28 AM [facility] eGFR by CKD-EPI >90 >=90 mL/min/1.7 3 m2 01/13/2025 8:28 AM [facility] Comment:Estimated Glomerular Filtration Rate (eGFR) calculated using the CKD-EPI Creatinine Equation (2020), per the National Kidney Foundation and [place] [employer]ph[employer] recommendations. Blood BLOOD SPECIMEN / Unknown Lab Venipuncture / Unknown 01/13/2025 7:09 AM CDT 01/13/2025 7:42 AM CDT us Diana Franco MD LAB - CHEMISTRY ORDERABLES Fi nal Result Performing Organization Address City/[facility]/ZIP Co de Phone Number [address] [address], [facility] [phone] * (ABNORMAL) FOLATE (01/13/2025 7:09 AM CDT) [facility] Folate 5.9(L) 7.0 - 31.4 ng/mL 01/13/2025 9:00 AM T [facility] Blood BLOOD SPECIMEN / Unknown Lab Venipuncture / Unknown 01/13/2025 7:09 AM CDT 01/13/2025 7:42 AM CDT Diana Franco MD LAB - CHEMISTRY ORDERABLES Fi nal Result [address] [address], [facility] [phone] * (ABNORMAL) VITAMIN B12 (01/13/2025 7:09 AM CDT) [facility] Vitamin B12 1,094(H) 213 - 816 pg/mL 01/13/2025 9:00 AM CDT [facility] Blood BLOOD SPECIMEN / Unknown Lab Venipuncture / Unknown 01/13/2025 7:09 AM CDT 01/13/2025 7:42 AM CDT Diana Franco MD LAB - CHEMISTRY ORDERABLES Fi nal Result Performing Organization Address City/[facility]/ZIP Co de Phone Number [address] [address], [facility] [phone] * CANCER ANTIGEN (CA) 19-9 (01/13/2025 7:07 AM CDT) [facility] CA 19-9 3 <=35 U/mL 01/14/2025 4:33 PM CDT [facility] ([facility]) Comment: INTERPRETIVE INFORMATION: Cancer Antigen-GI (CA 19-9) [...] or absence of malignant disease. Performed By: [employer] [address] [place] [address] [employer]er: Russell Roblero MD, PhD CLIA Number: [id number] Blood BLOOD SPECIMEN / Unknown Lab Venipuncture / Unknown 01/13/2025 7:07 AM CDT 01/13/2025 7:30 AM CDT Diana Franco MD LAB - CHEMISTRY ORDERABLES Fi nal Result Performing Organization Address City/[facility]/ZIP Co de Phone Number [facility]) [address] [place] [address] * TYPE + SCREEN PANEL (01/13/2025 7:07 AM CDT) [facility] Antibody Screen NEG 9:27 AM CDT [facility] BLOOD BANK LAB ABO Rh A POS 01/13/2025 9:27 AM [facility] BLOOD B[facility] LAB Blood Bank BLOOD SPECIMEN / Unknown Lab Venipuncture / Unknown 01/13/2025 7:07 AM CDT 01/13/2025 8:12 AM CDT us Diana Franco MD LAB - BLOOD BANK ORDERABLES F inal Result [facility] BLOOD BANK LAB [address] [place] [address], [facility] [phone] * (ABNORMAL) CBC W/O DIFFERENTIAL (01/13/2025 7:07 AM CDT) WBC 8.7 4.0 - 10.7 x10E9/L 01/13/2025 7:45 AM [facility] RBC Count 3.65(L) 4.30 - 5.80 x10E12/L 01/13/2025 7:45 AM [facility] Hemoglobin 9.1(L) 13.3 - 17.5 g/dL 01/13/2025 7:45 AM [facility] Hematocrit 28.6(L) 38.7 - 51.1 % 01/13/2025 7:45 AM [facility] MCV 78.4(L) 80.0 - 98.0 fL 01/13/2025 7:45 AM [facility] MCH 24.9(L) 26.7 - 33.6 pg 01/13/2025 7:45 AM [facility] MCHC 31.8 31.7 - 36.3 g/dL 01/13/2025 7:45 AM [facility] RDW-CV 13.6 11.3 - 14.8 % 01/13/2025 7:45 AM [facility] Platelet Count 475(H) 150 - 420 x10E9/L 01/13/2025 7:45 AM [facility] MPV 10.3 7.8 - 11.4 fL 01/13/2025 7:45 AM [facility] Blood BLOOD SPECIMEN / Unknown Lab Venipuncture / Unknown 01/13/2025 7:07 AM CDT 01/13/2025 7:38 AM CDT us Diana Franco MD LAB - HEMATOLOGY ORDERABLES F inal Result [address] [address], [place] [phone] * (ABNORMAL) IRON + TRANSFERRIN PANEL (01/13/2025 7:07 AM CDT) Iron 11(L) 50 - 175 ug/dL 01/13/2025 8:19 AM CDT [facility] Transferrin 117(L) 174 - 382 mg/dL 01/13/2025 8:19 AM CDT [facility] Transferrin Saturation % 8(L) 16 - 50 % 01/13/2025 8:19 AM CDT [facility] TIBC Calculated 146(L) 240 - 450 ug/dL 01/13/2025 8:19 AM CDT [facility] Blood BLOOD SPECIMEN / Unknown Lab Venipuncture / Unknown 01/13/2025 7:07 AM CDT 01/13/2025 7:30 AM CDT us Diana Franco MD LAB - CHEMISTRY ORDERABLES Fi nal Result Performing Organization Address [facility] Co de Phone Number [address] [address], [place] [phone] * (ABNORMAL) FERRITIN (01/13/2025 7:07 AM CDT) Ferritin 2,200(H) 22 - 275 ng/mL 01/13/2025 9:10 AM CDT [facility] Comment:Result obtained by hebert hdz. Blood BLOOD SPECIMEN / Unknown Lab Venipuncture / Unknown 01/13/2025 7:07 AM CDT 01/13/2025 7:30 AM CDT us Diana Franco MD LAB - CHEMISTRY ORDERABLES Fi nal Result [facility] [address] [place] [address], [facility] [phone] * URINALYSIS REFLEX TO MICROSCOPIC NO CULTURE (01/12/2025 10:38 AM CDT) Color UA Yellow Yellow, Straw 01/12/2025 11:02 AM [facility] Clarity UA Clear Clear 01/12/2025 11:02 AM [facility] Glucose UA Normal Normal 01/12/2025 11:02 AM [facility] Bilirubin UA Negative Negative 01/12/2025 11:02 AM [facility] Ketone UA Negative Negative 01/12/2025 11:02 AM [facility] Specific [place] UA 1.006 1.005 - 1.030 01/12/2025 11:02 AM [facility] Blood UA Negative Negative 01/12/2025 11:02 AM [facility] pH UA 7.0 5.0 - 8.0 01/12/2025 11:02 AM [facility] Protein UA Negative Negative 01/12/2025 11:02 AM [facility] Urobilinogen UA Normal Normal mg/dL 01/12/2025 11:02 AM [facility] Nitrite UA Negative Negative 01/12/2025 11:02 AM [facility] Leukocyte Esterase UA Negative Negative 01/12/2025 11:02 AM [facility] Urine Microscopy Urine microscopy not indicated 01/12/2025 11:02 AM [facility] Urine URINE SPECIMEN OBTAINED BY CLEAN CATCH PROCEDURE / Unknown Collection / Unknown 01/12/2025 10:38 AM CDT 01/12/2025 10:53 AM CDT Diana Franco MD LAB - URINALYSIS ORDERABLES F inal Result [address] [address], [facility] [phone] * (ABNORMAL) COMPREHENSIVE METABOLIC PANEL (01/12/2025 9:15 AM CDT) Pathologist [facility] BUN 7 7 - 26 mg/dL 01/12/2025 10:22 AM [facility] Creatinine 0.55(L) 0.71 - 1.16 mg/dL 01/12/2025 10:22 AM [facility] Sodium 136 136 - 145 mmol/L 01/12/2025 10:22 AM [facility] Potassium 3.7 3.5 - 4.5 mmol/L 01/12/2025 10:22 AM [facility] Chloride 106 98 - 107 mmol/L 01/12/2025 10:22 AM [facility] CO2 23 22 - 29 mmol/L 01/12/2025 10:22 AM [facility] Glucose 87 70 - 99 mg/dL 01/12/2025 10:22 AM [facility] Calcium 8.3(L) 8.4 - 10.2 mg/dL 01/12/2025 10:22 AM [facility] Protein Total 6.4 6.0 - 8.3 g/dL 01/12/2025 10:22 AM [facility] Albumin 2.1(L) 3.4 - 5.0 g/dL 01/12/2025 10:22 AM [facility] Bilirubin Total 0.7 0.2 - 1.2 mg/dL 01/12/2025 10:22 AM [facility] Alkaline Phosphatase 117 40 - 150 U/L 01/12/2025 10:22 AM [facility] ALT 33 5 - 55 U/L 01/12/2025 10:22 AM [facility] AST 23 5 - 34 U/L 01/12/2025 10:22 AM [facility] Anion Gap 7 6 - 16 01/12/2025 10:22 AM [facility] BUN/Creatinine Ratio 13 7 - 23 01/12/2025 10:22 AM [facility] Osmolality Calculated 279 275 - 295 mOsm/kg 01/12/2025 10:22 AM [facility] Albumin/Globulin Ratio 0.5(L) 1.1 - 2.3 01/12/2025 10:22 AM [facility] eGFR by CKD-EPI >90 >=90 mL/min/1.7 3 m2 01/12/2025 10:22 AM CDT [facility] Comment:Estimated Glomerular Filtration Rate (eGFR) calculated using the CKD-EPI Creatinine Equation (2020), per the National Kidney Foundation and [place] [employer] Neph[employer] recommendations. Blood BLOOD SPECIMEN / Unknown Lab Venipuncture / Unknown 01/12/2025 9:15 AM CDT 01/12/2025 9:54 AM CDT us Ana Olivarez MD LAB - CHEMISTRY ORDERABLES F inal Result Performing Organization Address City/[facility]/ZIP Co de Phone Number [address] [address], [facility] [phone] * PHOSPHORUS BLOOD (01/12/2025 9:15 AM CDT) Phosphorus 3.1 2.8 - 5.1 mg/dL 01/12/2025 10:22 AM CDT [facility] Blood BLOOD SPECIMEN / Unknown Lab Venipuncture / Unknown 01/12/2025 9:15 AM CDT 01/12/2025 9:54 AM CDT us Ana Olivarez MD LAB - CHEMISTRY ORDERABLES F inal Result Performing Organization Address City/[facility]/ZIP Co de Phone Number [address] [address], [place] [phone] * MAGNESIUM BLOOD (01/12/2025 9:15 AM CDT) Magnesium 1.9 1.6 - 2.6 mg/dL 01/12/2025 10:22 AM CDT [facility] Blood BLOOD SPECIMEN / Unknown Lab Venipuncture / Unknown 01/12/2025 9:15 AM CDT 01/12/2025 9:54 AM CDT us Ana Olivarez MD LAB - CHEMISTRY ORDERABLES F inal Result Performing Organization Address City/[facility]/ZIP Co de Phone Number [address] [address] [phone] * (ABNORMAL) PT-INR (01/12/2025 9:14 AM CDT) [facility] PT 16.6(H) 12.1 - 14.8 Seconds 01/12/2025 10:17 AM [facility] INR 1.4 See Comment 01/12/2025 10:17 AM [facility] Comment:The suggested therap eutic range for standard coumadin (warfarin) therapy is an INR of 2.0-3.0. For high-risk patients (Mechanical Mitral Valve Prosthesis, etc.), the suggested prophylactic therapeutic range is an INR of 2.5-3.5. Blood BLOOD SPECIMEN / Unknown Lab Venipuncture / Unknown 01/12/2025 9:14 AM CDT 01/12/2025 9:54 AM CDT Ana Olivarez MD LAB - COAGULATION ORDERABLES Final Result [facility] [address] [place] [address], [facility] [phone] * (ABNORMAL) CBC W AUTO DIFFERENTIAL (01/12/2025 9:14 AM CDT) [facility] WBC 7.7 4.0 - 10.7 x10E9/L 01/12/2025 9:58 AM [facility] RBC Count 3.49(L) 4.30 - 5.80 x10E12/L 01/12/2025 9:58 AM [facility] Hemoglobin 8.9(L) 13.3 - 17.5 g/dL 01/12/2025 9:58 AM [facility] Hematocrit 28.0(L) 38.7 - 51.1 % 01/12/2025 9:58 AM [facility] MCV 80.2 80.0 - 98.0 fL 01/12/2025 9:58 AM [facility] MCH 25.5(L) 26.7 - 33.6 pg 01/12/2025 9:58 AM [facility] MCHC 31.8 31.7 - 36.3 g/dL 01/12/2025 9:58 AM [facility] RDW-CV 13.7 11.3 - 14.8 % 01/12/2025 9:58 AM [facility] Platelet Count 445(H) 150 - 420 x10E9/L 01/12/2025 9:58 AM [facility] MPV 10.2 7.8 - 11.4 fL 01/12/2025 9:58 AM [facility] Neutrophil % 73.9 41.0 - 74.0 % 01/12/2025 9:58 AM [facility] Lymphocyte % 9.6(L) 17.0 - 47.0 % 01/12/2025 9:58 AM [facility] Monocyte % 10.4 3.0 - 11.0 % 01/12/2025 9:58 AM [facility] Eosinophil % 5.1 0.0 - 7.0 % 01/12/2025 9:58 AM [facility] Basophil % 0.5 0.0 - 1.6 % 01/12/2025 9:58 AM [facility] Immature Granulocytes % 0.5 0.0 - 1.0 % 01/12/2025 9:58 AM [facility] Neutrophil Absolute 5.67 1.60 - 7.50 x10E9/L 01/12/2025 9:58 AM [facility] Lymphocyte Absolute 0.74(L) 1.00 - 4.40 x10E9/L 01/12/2025 9:58 AM [facility] Monocyte Absolute 0.80 0.15 - 1.00 x10E9/L 01/12/2025 9:58 AM [facility] Eosinophil Absolute 0.39 0.00 - 0.60 x10E9/L 01/12/2025 9:58 AM [facility] Basophil Absolute 0.04 0.00 - 0.13 x10E9/L 01/12/2025 9:58 AM [facility] Blood BLOOD SPECIMEN / Unknown Lab Venipuncture / Unknown 01/12/2025 9:14 AM CDT 01/12/2025 9:54 AM CDT us Ana Olivarez MD LAB - HEMATOLOGY ORDERABLES Final Result [facility] [address] [place] [address], [place] [phone] from Last 3 Months Insurance [facility] Address: [facility] [id number] [place] [address] Advance Directives * Full Code (Latest Code Status on File) Date Activated Date Inactivated Comments 01/12/2025 7:46 AM 01/13/2025 8:28 PM
[2025-01-20 09:36] LABS: Hematocrit 29.5 % (40.0-54.0); Hemoglobin 9.0 g/dL (14.0-18.0); Immature Granulocyte Percent A 0.8 % (0.0-0.0); Immature Platelet Fraction Pct 2.0 % (1.0-7.0); Lymphocytes Absolute Auto 1.17 K/mm3 (1.10-4.50); Mean Corpuscular HGB Conc 30.5 g/dL (32-36); Mean Corpuscular Hemoglobin 24.3 pg (27.0-31.0); Mean Corpuscular Volume 79.7 fL (78.0-102.0); Nucleated Red Blood Cells Absolute Auto 0.00 K/mm3 (0.00-0.00); Nucleated Red Blood Cells Perc 0.0 % (0-0.0); Platelet Count Result 602 K/mm3 (150-420); Red Blood Count 3.70 M/mm3 (4.70-6.10); White Blood Count 11.5 K/mm3 (4.8-10.8)
[2025-01-20 09:59] LABS: Alanine Aminotransferase 70 U/L (6-50); Albumin Level 3.7 g/dL (3.5-5.1); Alkaline Phosphatase 234 U/L (38-126); Anion Gap 6 mmol/L (4-12); Aspartate Amino Transferase 43 U/L (17-59); Bilirubin,Total 1.0 mg/dL (0.2-1.3); Blood Urea Nitrogen 10 mg/dL (9-20); Calcium 9.5 mg/dL (8.4-10.2); Carbon Dioxide 31 mmol/L (22-30); Chloride 92 mmol/L (98-107); Estimated Glomerular Filt Rate > 60; Glucose 120 mg/dL (65-110); Iron 27 ug/dL (49-181); Osmolality Calculated 268 mOsm/kg (285-295); Potassium 4.5 mmol/L (3.4-5.0); Sodium 129 mmol/L (137-145); Total Protein 8.1 g/dL (6.3-8.2); Uric Acid 1.7 mg/dL (3.5-8.5)
[2025-01-20 10:11] LABS: Troponin I < 0.012 ng/mL (0.000-0.034)
[2025-01-20 10:29] LABS: Thyroid Stimulating Hormone Reflex 1.670 uIU/mL (0.465-4.68)
[2025-01-20 10:40] LABS: Ferritin > 1000.00 ng/mL (11.1-264); Percent Iron Saturation 7 % (20-50)
[2025-01-20 14:52] LABS: Add Urine Microscopic? YES; Appearance Urine Clear (Clear); Glucose Urine UA Negative (Negative); Leukocyte Esterase Ur Negative LEU/UL (Negative); Nitrate Urine Negative (Negative); Specific Grav Ur 1.015 (1.010-1.020)
[2025-01-20 15:27] LABS: Toxigenic C. Diff NEGATIVE (NEGATIVE)
[2025-01-22 13:08] LABS: Fats, Neutral Normal (.); Fats, Total Normal (.)
[2025-01-23 07:09] LABS: Calprotectin, Fecal 132 ug/g (0-120); Pancreatic Elastase, Fecal 541 (>200)
== END 2025-01-20 09:06 | disposition home or self-care (01) ==
LOC: CHSLAB 09:07
PROVIDERS: PCP Nurse Practitioner Family; Visit Provider Nurse Practitioner Family
DX: M54.9 Dorsalgia, unspecified (principal); E87.5 Hyperkalemia; R61 Generalized hyperhidrosis; R19.8 Other specified symptoms and signs involving the digestive system and abdomen; R63.4 Abnormal weight loss; E61.1 Iron deficiency; K86.89 Other specified diseases of pancreas; R79.89 Other specified abnormal findings of blood chemistry; M79.676 Pain in unspecified toe(s)
CPT/HCPCS: 36415; 80053; 81001; 82272; 82653; 82705; 82728; 83540; 83550; 83993; 84443; 84484; 84550; 85025; 85055; 87493

== ENCOUNTER 2025-01-24 09:35 | Outpatient (CLI) | payer BC, SELFPAY ==
--- OUTSIDE RECORDS SUMMARY | 2025-01-24 09:38 | XMS_ITS | Encounter Summary ---
Author Organization [facility] Address [address] [facility] [place] [address] Care Team Providers Care Leasing Representative Name Role Phone Unavailable Primary Care Provider Unavailabl e Encounter Details Date Type Department Care Team (Late st Contact Info) Description 01/14/2025 Orders Only [facility] - Hematology/Oncology [address] [place] [address] Rashawn Khan R, DO Social [...] and heating? Not hard at all 01/12/2025 [facility] [place] of Occupat ional Health - Occupational Stress [...] any time in the past [address] [facility], were you homeless or living [...] Author No 01/12/2025 6:34 AM [facility] Ai Rowan, PATRICK * Does person have serious difficulty walking/climbing stairs? Answer Date of Assessment Author No 01/12/2025 6:34 AM [facility] Ai Rowan RN * Does person have difficulty dressing/bathing? Answer Date of Assessment Author No 01/12/2025 6:34 AM [facility] Ai Rowan, PATRICK * Does person have difficulty doing errands alone? Answer Date of Assessment Author No 01/12/2025 6:34 AM [facility] Ai Rowan RN documented as of this encounter Mental Status * Does person have difficulty concentrating/remembering/making decisions? Answer Entry Date Author No 01/12/2025 6:34 AM Ai Gipson RN documented in this encounter Plan of Treatment Upcoming Encounters Date Type Department Care Team (Late st Contact Info) Description 01/27/2025 11:30 AM CDT Hospital Encounter [facility] IVR [address] [place] [address] Heather Willoughby PA [address] [place] [phone] documented as of this encounter Visit Diagnoses Not on filedocumented in this encounter
--- OUTSIDE RECORDS SUMMARY | 2025-01-24 09:38 | XMS_ITS | Clinical Summary ---
Author Organization [facility] Address [address] [place] [address] Care Team Providers Care Forensic Locksmith Name Role Phone Unavailable Primary Care Provider Unavailabl e Source Comments [facility],non-owned Affiliates and Associated Physician Practices is amultiple site organization consisting of ambulatory clinics and hospital sitesin [place], [place], [place] and [place]. This disclosure is being madepursuant to the Care Everywhere program and may not contain all information available regarding this patient. Last updated 18.[employer] [facility] Allergies No known active allergies Medications * [...] Assessment & Plan (01/13/2025 4:01 PM CDT): [place] UA, will CTM Assessment & Plan (01/12/2025 4:52 PM CDT): [place] UA without signs of UTI - CTM [...] Telephone [facility] - GI [address] [facility] [place] [phone] Giovanna Aquino, RN Appointment 01/15/2025 Telephone Transitional Care at [address] [address] Laura Infante, ruling machine set up operator 01/15/2025 Telephone Transitional Care at [address] [phone] Laura Infante, RN 01/14/2025 Telephone Transitional Care at [address] [phone] Laura Infante, ruling machine set up operator 01/14/2025 Orders Only [facility] - Hematology/Oncolog y [address] [place] [address] Rashawn Khan DO 01/12/2025 6:25 AM CDT - 01/13/2025 7:23 PM CDT Hospital Encounter [facility] 6S ACUTE [address] [place] [id number] Ana Olivarez MD Bastin, Taylor J, MD Bhalla, Kishley, MD Gastroenterology Discharge Disposition: Home or Self Care 01/12/2025 Travel 01/11/2025 Telephone [facility] MED [address] [place] [phone] Ana Olivarez MD Hospital Admission from Last [...] and heating? Not hard at all 01/12/2025 [facility] [place] of Occupat ional Health - Occupational Stress [...] any time in the past 12 m [facility], were you homeless or living in a senior care (including now)? No 01/12/2025 Sex and Gender [...] Description 01/27/2025 11:30 AM CDT Hospital Encounter [facility] IVR [address] [place] [address] Heather Willoughby PA [address] [place] [phone] Health Maintenance Due Date Last Done [...] by Hasaan Lucius, MD > Dictated by Manager Trust I, Jasvir Michelle MD have personally reviewed and interpreted this examination/study. > Interpreting Provider: Jasvir Michelle MD on 01/14/2025 7:17 AM Narrative 01/14/2025 7:17 AM CDT PROCEDURE: CT PELVIS W CONTRAST, CT CHEST W CONTRAST, CT PANCREAS WWO CONTRAST, DATE/TIME OF EXAM: 01/13/2025 5:24 PM, LOCATION [facility] INDICATION: K86.89: Pancreatic mass (HCC) ADDITIONAL CLINICAL INFORMATION: Ordering Provider Reason For Exam: mets (accession [id number]), mets (accession [id number]), concern for metastatic malignancy with pancreatic primary (accession [id number]) Technologist Note: Additional: COMPARISON: None. TECHNIQUE: 1.CT [...] DATE/TIME OF EXAM: 01/13/2025 5:24 PM, LOCATION [facility] INDICATION: K86.89: Pancreatic mass (HCC) ADDITIONAL CLINICAL INFORMATION: Ordering Provider Reason For Exam: mets (accession [id number]), mets (accession [id number]), concern for metastatic malignancy with pancreatic primary (accession [id number]) Technologist Note: Additional: COMPARISON: None. TECHNIQUE: 1.CT [...] (image 76 series 5 and image 47 [id number]). No associated pancreatic or biliary ductal obstruction [...] by Barbara Kan MD > Dictated by Manager Trust I, Jasvir Michelle MD have personally reviewed [...] by Barbara Kan MD > Dictated by Manager Trust I, Jasvir Michelle MD have personally reviewed and interpreted this examination/study. > Interpreting Provider: Jasvir Michelle MD on 01/14/2025 7:17 AM Narrative 01/14/2025 7:17 AM CDT PROCEDURE: CT PELVIS W CONTRAST, CT CHEST W CONTRAST, CT PANCREAS WWO CONTRAST, DATE/TIME OF EXAM: 01/13/2025 5:24 PM, LOCATION [facility] INDICATION: K86.89: Pancreatic mass (HCC) ADDITIONAL CLINICAL INFORMATION: Ordering Provider Reason For Exam: mets (accession [id number]), mets (accession [id number]), concern for metastatic malignancy with pancreatic primary (accession [id number]) Technologist Note: Additional: COMPARISON: None. TECHNIQUE: 1.CT [...] DATE/TIME OF EXAM: 01/13/2025 5:24 PM, LOCATION [facility] INDICATION: K86.89: Pancreatic mass (HCC) ADDITIONAL CLINICAL INFORMATION: Ordering Provider Reason For Exam: mets (accession [id number]), mets (accession [id number]), concern for metastatic malignancy with pancreatic primary (accession [id number]) Technologist Note: Additional: COMPARISON: None. TECHNIQUE: 1.CT [...] by Barbara Kan MD > Dictated by Manager Trust I, Jasvir Michelle MD have personally reviewed [...] by Barbara Kan MD > Dictated by Manager Trust I, Jasvir Michelle MD have personally reviewed and interpreted this examination/study. > Interpreting Provider: Jasvir Michelle MD on 01/14/2025 7:17 AM Narrative 01/14/2025 7:17 AM CDT PROCEDURE: CT PELVIS W CONTRAST, CT CHEST W CONTRAST, CT PANCREAS WWO CONTRAST, DATE/TIME OF EXAM: 01/13/2025 5:24 PM, LOCATION [facility] INDICATION: K86.89: Pancreatic mass (HCC) ADDITIONAL CLINICAL INFORMATION: Ordering Provider Reason For Exam: mets (accession [id number]), mets (accession [id number]), concern for metastatic malignancy with pancreatic primary (accession [id number]) Technologist Note: Additional: COMPARISON: None. TECHNIQUE: 1.CT [...] DATE/TIME OF EXAM: 01/13/2025 5:24 PM, LOCATION [facility] INDICATION: K86.89: Pancreatic mass (HCC) ADDITIONAL CLINICAL INFORMATION: Ordering Provider Reason For Exam: mets (accession [id number]), mets (accession [id number]), concern for metastatic malignancy with pancreatic primary (accession [id number]) Technologist Note: Additional: COMPARISON: None. TECHNIQUE: 1.CT [...] by Barbara Kan MD > Dictated by Manager Trust I, Jasvir Michelle MD have personally reviewed and interpreted this examination/study. > Interpreting Provider: Jasvir Michelle MD on 57:[address] ORDERABLES Final Result * BLOOD TYPE VERIFICATION (01/13/2025 9:09 AM CDT) ABO Rh A POS 01/13/2025 11:07 AM CDT [facility] BLOOD BANK LAB Blood Bank BLOOD SPECIMEN / Unknown Lab Venipuncture / Unknown 01/13/2025 9:09 AM CDT 01/13/2025 9:36 AM CDT Chikis Gao MD LAB - BLOOD BANK ORDERABLES Fi nal Result [facility] BLOOD BANK LAB [address] [place] [address], [facility] [phone] * (ABNORMAL) RENAL FUNCTION PANEL (01/13/2025 7:09 AM CDT) BUN 12 7 - 26 mg/dL 01/13/2025 8:28 AM [facility] Creatinine 0.57(L) 0.71 - 1.16 mg/dL 01/13/2025 8:28 AM [facility] Sodium 135(L) 136 - 145 mmol/L 01/13/2025 8:28 AM [facility] Potassium 4.0 3.5 - 4.5 mmol/L 01/13/2025 8:28 AM [facility] Chloride 103 98 - 107 mmol/L 01/13/2025 8:28 AM [facility] CO2 25 22 - 29 mmol/L 01/13/2025 8:28 AM [facility] Glucose 103(H) 70 - 99 mg/dL 01/13/2025 8:28 AM [facility] Albumin 2.2(L) 3.4 - 5.0 g/dL 01/13/2025 8:28 AM [facility] Calcium 8.5 8.4 - 10.2 mg/dL 01/13/2025 8:28 AM [facility] Phosphorus 3.1 2.8 - 5.1 mg/dL 01/13/2025 8:28 AM [facility] Anion Gap 7 6 - 16 01/13/2025 8:28 AM [facility] BUN/Creatinine Ratio 21 7 - 23 01/13/2025 8:28 AM [facility] Osmolality Calculated 280 275 - 295 mOsm/kg 01/13/2025 8:28 AM [facility] eGFR by CKD-EPI >90 >=90 mL/min/1.7 3 m2 01/13/2025 8:28 AM [facility] Comment:Estimated Glomerular Filtration Rate (eGFR) calculated using the CKD-EPI Creatinine Equation (2020), per the National Kidney Foundation and [employer]ph[employer] recommendations. Blood BLOOD SPECIMEN / Unknown Lab Venipuncture / Unknown 01/13/2025 7:09 AM CDT 01/13/2025 7:42 AM CDT us Diana Franco MD LAB - CHEMISTRY ORDERABLES Fi nal Result Performing Organization Address City/[facility]/ZIP Co de Phone Number [address] [address], [facility] [phone] * (ABNORMAL) FOLATE (01/13/2025 7:09 AM CDT) [facility] Folate 5.9(L) 7.0 - 31.4 ng/mL 01/13/2025 9:00 AM T [facility] Blood BLOOD SPECIMEN / Unknown Lab Venipuncture / Unknown 01/13/2025 7:09 AM CDT 01/13/2025 7:42 AM CDT Diana Franco MD LAB - CHEMISTRY ORDERABLES Fi nal Result [address] [address], [facility] [phone] * (ABNORMAL) VITAMIN B12 (01/13/2025 7:09 AM CDT) [facility] Vitamin B12 1,094(H) 213 - 816 pg/mL 01/13/2025 9:00 AM CDT [facility] Blood BLOOD SPECIMEN / Unknown Lab Venipuncture / Unknown 01/13/2025 7:09 AM CDT 01/13/2025 7:42 AM CDT Diana Franco MD LAB - CHEMISTRY ORDERABLES Fi nal Result Performing Organization Address City/[facility]/ZIP Co de Phone Number [address] [address], [facility] [phone] * CANCER ANTIGEN ([place]) 19-9 (01/13/2025 7:07 AM CDT) [facility] CA 19-9 3 <=35 U/mL 01/14/2025 4:33 PM CDT [email or web address] ([facility]) Comment: INTERPRETIVE INFORMATION: Cancer Antigen-GI ([place] [...] or absence of malignant disease. Performed By: [employer] [address] [place] [address] [employer]k Screen Printer Helper: Russell Roblero MD, PhD CLIA Number: [id number] Blood BLOOD SPECIMEN / Unknown Lab Venipuncture / Unknown 01/13/2025 7:07 AM CDT 01/13/2025 7:30 AM CDT Diana Franco MD LAB - CHEMISTRY ORDERABLES Fi nal Result Performing Organization Address City/[facility]/ZIP Co de Phone Number [facility]) [address] [place] [address] * TYPE + SCREEN PANEL (01/13/2025 7:07 AM CDT) [facility] Antibody Screen NEG 9:27 AM CDT [facility] BLOOD BANK LAB ABO Rh A POS 01/13/2025 9:27 AM [facility] BLOOD BANK LAB Blood Bank BLOOD SPECIMEN / Unknown Lab Venipuncture / Unknown 01/13/2025 7:07 AM CDT 01/13/2025 8:12 AM CDT us Diana Franco MD LAB - BLOOD BANK ORDERABLES F inal Result [facility] BLOOD BANK LAB [address] [place] [address], [facility] [phone] * (ABNORMAL) CBC W/O DIFFERENTIAL (01/13/2025 7:07 AM CDT) WBC 8.7 4.0 - 10.7 x10E9/L 01/13/2025 7:45 AM [facility] RBC Count 3.65(L) 4.30 - 5.80 x10E12/L 01/13/2025 7:45 AM [facility] Hemoglobin 9.1(L) 13.3 - 17.5 g/dL 01/13/2025 7:45 AM [facility] Hematocrit 28.6(L) 38.7 - 51.1 % 01/13/2025 7:45 AM [facility] MCV 78.4(L) 80.0 - 98.0 fL 01/13/2025 7:45 AM [facility] MCH 24.9(L) 26.7 - 33.6 pg 01/13/2025 7:45 AM [facility] MCHC 31.8 31.7 - 36.3 g/dL 01/13/2025 7:45 AM [facility] RDW-CV 13.6 11.3 - 14.8 % 01/13/2025 7:45 AM [facility] Platelet Count 475(H) 150 - 420 x10E9/L 01/13/2025 7:45 AM [facility] MPV 10.3 7.8 - 11.4 fL 01/13/2025 7:45 AM [facility] Blood BLOOD SPECIMEN / Unknown Lab Venipuncture / Unknown 01/13/2025 7:07 AM CDT 01/13/2025 7:38 AM CDT us Diana Franco MD LAB - HEMATOLOGY ORDERABLES F inal Result [address] [address], [place] [phone] * (ABNORMAL) IRON + TRANSFERRIN PANEL (01/13/2025 7:07 AM CDT) Iron 11(L) 50 - 175 ug/dL 01/13/2025 8:19 AM CDT [facility] Transferrin 117(L) 174 - 382 mg/dL 01/13/2025 8:19 AM CDT [facility] Transferrin Saturation % 8(L) 16 - 50 % 01/13/2025 8:19 AM CDT [facility] TIBC Calculated 146(L) 240 - 450 ug/dL 01/13/2025 8:19 AM CDT [facility] Blood BLOOD SPECIMEN / Unknown Lab Venipuncture / Unknown 01/13/2025 7:07 AM CDT 01/13/2025 7:30 AM CDT us Diana Franco MD LAB - CHEMISTRY ORDERABLES Fi nal Result Performing Organization Address [facility] Co de Phone Number [address] [address], [place] [phone] * (ABNORMAL) FERRITIN (01/13/2025 7:07 AM CDT) Ferritin 2,200(H) 22 - 275 ng/mL 01/13/2025 9:10 AM CDT [facility] Comment:Result obtained by hebert hdz. Blood BLOOD SPECIMEN / Unknown Lab Venipuncture / Unknown 01/13/2025 7:07 AM CDT 01/13/2025 7:30 AM CDT us Diana Franco MD LAB - CHEMISTRY ORDERABLES Fi nal Result [facility] [address] [place] [address], [facility] [phone] * URINALYSIS REFLEX TO MICROSCOPIC NO CULTURE (01/12/2025 10:38 AM CDT) Color UA Yellow Yellow, Straw 01/12/2025 11:02 AM [facility] Clarity UA Clear Clear 01/12/2025 11:02 AM [facility] Glucose UA Normal Normal 01/12/2025 11:02 AM [facility] Bilirubin UA Negative Negative 01/12/2025 11:02 AM [facility] Ketone UA Negative Negative 01/12/2025 11:02 AM [facility] Specific [place]els UA 1.006 1.005 - 1.030 01/12/2025 11:02 AM [facility] Blood UA Negative Negative 01/12/2025 11:02 AM [facility] pH UA 7.0 5.0 - 8.0 01/12/2025 11:02 AM [facility] Protein UA Negative Negative 01/12/2025 11:02 AM [facility] Urobilinogen UA Normal Normal mg/dL 01/12/2025 11:02 AM [facility] Nitrite UA Negative Negative 01/12/2025 11:02 AM [facility] Leukocyte Esterase UA Negative Negative 01/12/2025 11:02 AM [facility] Urine Microscopy Urine microscopy not indicated 01/12/2025 11:02 AM [facility] Urine URINE SPECIMEN OBTAINED BY CLEAN CATCH PROCEDURE / Unknown Collection / Unknown 01/12/2025 10:38 AM CDT 01/12/2025 10:53 AM CDT Diana Franco MD LAB - URINALYSIS ORDERABLES F inal Result [address] [address], [facility] [phone] * (ABNORMAL) COMPREHENSIVE METABOLIC PANEL (01/12/2025 9:15 AM CDT) Pathologist [facility] BUN 7 7 - 26 mg/dL 01/12/2025 10:22 AM [facility] Creatinine 0.55(L) 0.71 - 1.16 mg/dL 01/12/2025 10:22 AM [facility] Sodium 136 136 - 145 mmol/L 01/12/2025 10:22 AM [facility] Potassium 3.7 3.5 - 4.5 mmol/L 01/12/2025 10:22 AM [facility] Chloride 106 98 - 107 mmol/L 01/12/2025 10:22 AM [facility] CO2 23 22 - 29 mmol/L 01/12/2025 10:22 AM [facility] Glucose 87 70 - 99 mg/dL 01/12/2025 10:22 AM [facility] Calcium 8.3(L) 8.4 - 10.2 mg/dL 01/12/2025 10:22 AM [facility] Protein Total 6.4 6.0 - 8.3 g/dL 01/12/2025 10:22 AM [facility] Albumin 2.1(L) 3.4 - 5.0 g/dL 01/12/2025 10:22 AM [facility] Bilirubin Total 0.7 0.2 - 1.2 mg/dL 01/12/2025 10:22 AM [facility] Alkaline Phosphatase 117 40 - 150 U/L 01/12/2025 10:22 AM [facility] ALT 33 5 - 55 U/L 01/12/2025 10:22 AM [facility] AST 23 5 - 34 U/L 01/12/2025 10:22 AM [facility] Anion Gap 7 6 - 16 01/12/2025 10:22 AM [facility] BUN/Creatinine Ratio 13 7 - 23 01/12/2025 10:22 AM [facility] Osmolality Calculated 279 275 - 295 mOsm/kg 01/12/2025 10:22 AM [facility] Albumin/Globulin Ratio 0.5(L) 1.1 - 2.3 01/12/2025 10:22 AM [facility] eGFR by CKD-EPI >90 >=90 mL/min/1.7 3 m2 01/12/2025 10:22 AM CDT [facility] Comment:Estimated Glomerular Filtration Rate (eGFR) calculated using the CKD-EPI Creatinine Equation (2020), per the National Kidney Foundation and [place] [employer] Nephrology recommendations. Blood BLOOD SPECIMEN / Unknown Lab Venipuncture / Unknown 01/12/2025 9:15 AM CDT 01/12/2025 9:54 AM CDT us Ana Olivarez MD LAB - CHEMISTRY ORDERABLES F inal Result Performing Organization Address City/[facility]/ZIP Co de Phone Number [address] [address], [facility] [phone] * PHOSPHORUS BLOOD (01/12/2025 9:15 AM CDT) Phosphorus 3.1 2.8 - 5.1 mg/dL 01/12/2025 10:22 AM CDT [facility] Blood BLOOD SPECIMEN / Unknown Lab Venipuncture / Unknown 01/12/2025 9:15 AM CDT 01/12/2025 9:54 AM CDT us Ana Olivarez MD LAB - CHEMISTRY ORDERABLES F inal Result Performing Organization Address City/[facility]/ZIP Co de Phone Number [address] [address], [place] [phone] * MAGNESIUM BLOOD (01/12/2025 9:15 AM CDT) Magnesium 1.9 1.6 - 2.6 mg/dL 01/12/2025 10:22 AM CDT [facility] Blood BLOOD SPECIMEN / Unknown Lab Venipuncture / Unknown 01/12/2025 9:15 AM CDT 01/12/2025 9:54 AM CDT us Ana Olivarez MD LAB - CHEMISTRY ORDERABLES F inal Result Performing Organization Address City/[facility]/ZIP Co de Phone Number [address] [address] [phone] * (ABNORMAL) PT-INR (01/12/2025 9:14 AM CDT) [facility] PT 16.6(H) 12.1 - 14.8 Seconds 01/12/2025 10:17 AM [facility] INR 1.4 See Comment 01/12/2025 10:17 AM [facility] Comment:The suggested therap eutic range for standard coumadin (warfarin) therapy is an INR of 2.0-3.0. For high-risk patients (Mechanical Mitral Valve Prosthesis, etc.), the suggested prophylactic therapeutic range is an INR of 2.5-3.5. Blood BLOOD SPECIMEN / Unknown Lab Venipuncture / Unknown 01/12/2025 9:14 AM CDT 01/12/2025 9:54 AM CDT Ana Olivarez MD LAB - COAGULATION ORDERABLES Final Result [facility] [address] [place] [address], [facility] [phone] * (ABNORMAL) CBC W AUTO DIFFERENTIAL (01/12/2025 9:14 AM CDT) [facility] WBC 7.7 4.0 - 10.7 x10E9/L 01/12/2025 9:58 AM [facility] RBC Count 3.49(L) 4.30 - 5.80 x10E12/L 01/12/2025 9:58 AM [facility] Hemoglobin 8.9(L) 13.3 - 17.5 g/dL 01/12/2025 9:58 AM [facility] Hematocrit 28.0(L) 38.7 - 51.1 % 01/12/2025 9:58 AM [facility] MCV 80.2 80.0 - 98.0 fL 01/12/2025 9:58 AM [facility] MCH 25.5(L) 26.7 - 33.6 pg 01/12/2025 9:58 AM [facility] MCHC 31.8 31.7 - 36.3 g/dL 01/12/2025 9:58 AM [facility] RDW-CV 13.7 11.3 - 14.8 % 01/12/2025 9:58 AM [facility] Platelet Count 445(H) 150 - 420 x10E9/L 01/12/2025 9:58 AM [facility] MPV 10.2 7.8 - 11.4 fL 01/12/2025 9:58 AM [facility] Neutrophil % 73.9 41.0 - 74.0 % 01/12/2025 9:58 AM [facility] Lymphocyte % 9.6(L) 17.0 - 47.0 % 01/12/2025 9:58 AM [facility] Monocyte % 10.4 3.0 - 11.0 % 01/12/2025 9:58 AM [facility] Eosinophil % 5.1 0.0 - 7.0 % 01/12/2025 9:58 AM [facility] Basophil % 0.5 0.0 - 1.6 % 01/12/2025 9:58 AM [facility] Immature Granulocytes % 0.5 0.0 - 1.0 % 01/12/2025 9:58 AM [facility] Neutrophil Absolute 5.67 1.60 - 7.50 x10E9/L 01/12/2025 9:58 AM [facility] Lymphocyte Absolute 0.74(L) 1.00 - 4.40 x10E9/L 01/12/2025 9:58 AM [facility] Monocyte Absolute 0.80 0.15 - 1.00 x10E9/L 01/12/2025 9:58 AM [facility] Eosinophil Absolute 0.39 0.00 - 0.60 x10E9/L 01/12/2025 9:58 AM [facility] Basophil Absolute 0.04 0.00 - 0.13 x10E9/L 01/12/2025 9:58 AM [facility] Blood BLOOD SPECIMEN / Unknown Lab Venipuncture / Unknown 01/12/2025 9:14 AM CDT 01/12/2025 9:54 AM CDT us Ana Olivarez MD LAB - HEMATOLOGY ORDERABLES Final Result [facility] [address] [place] [address], [place] [phone] from Last 3 Months Insurance [facility] Address: [facility] [id number] [place] [address] Advance Directives * Full Code (Latest Code Status on File) Date Activated Date Inactivated Comments 01/12/2025 7:46 AM 01/13/2025 8:28 PM
--- OUTSIDE RECORDS SUMMARY | 2025-01-24 09:38 | XMS_ITS | Encounter Summary ---
Author Organization [facility] Address [address] [place] [address] Care Team Providers Care Top Ironer Name Role Phone Unavailable Primary Care Provider Unavailabl e Encounter Details Date Type Department Care Team (Late st Contact Info) Description 01/15/2025 Telephone Transitional Care at [facility] [address] [place] [address] Laura Infante RN Social History Tobacco [...] heating? Not hard at all 01/12/2025 [place] of Occupat ional Health - Occupational Stress [...] time in the past 12 m [facility], were you homeless or living in a intermediate (including now)? No 01/12/2025 Sex and Gender [...] Rowan, PATRICK * Does person have difficulty dressing/bathing? Answer Date of Assessment Author No 01/12/2025 6:34 AM CDT Ai Rowan, PATRICK * Does person have difficulty doing errands alone? Answer Date of Assessment Author No 01/12/2025 6:34 AM [facility] Ai Rowan RN documented as of this encounter Mental Status * Does person have difficulty concentrating/remembering/making decisions? Answer Entry Date Author No 01/12/2025 6:34 AM [facility] Ai Rowan RN documented in this encounter Plan of Treatment Upcoming Encounters Date Type Department Care Team (Late st Contact Info) Description 01/27/2025 11:30 AM CDT Hospital Encounter [facility] [address] [place] [address] Heather Willoughby PA [address] [place] [phone] documented as of this encounter Visit Diagnoses Not on filedocumented in this encounter
[2025-01-24 09:50] LABS: Hematocrit 27.9 % (40.0-54.0); Hemoglobin 8.3 g/dL (14.0-18.0); Immature Granulocyte Percent A 0.7 % (0.0-0.0); Immature Platelet Fraction Pct 1.2 % (1.0-7.0); Lymphocytes Absolute Auto 0.76 K/mm3 (1.10-4.50); Mean Corpuscular HGB Conc 29.7 g/dL (32-36); Mean Corpuscular Hemoglobin 23.7 pg (27.0-31.0); Mean Corpuscular Volume 79.7 fL (78.0-102.0); Nucleated Red Blood Cells Absolute Auto 0.00 K/mm3 (0.00-0.00); Nucleated Red Blood Cells Perc 0.0 % (0-0.0); Platelet Count Result 600 K/mm3 (150-420); Red Blood Count 3.50 M/mm3 (4.70-6.10); White Blood Count 10.3 K/mm3 (4.8-10.8)
[2025-01-24 10:34] LABS: Alanine Aminotransferase 50 U/L (6-50); Albumin Level 2.9 g/dL (3.5-5.1); Alkaline Phosphatase 204 U/L (38-126); Anion Gap 11 mmol/L (4-12); Aspartate Amino Transferase 35 U/L (17-59); Bilirubin,Total 1.2 mg/dL (0.2-1.3); Blood Urea Nitrogen 11 mg/dL (9-20); Calcium 8.5 mg/dL (8.4-10.2); Carbon Dioxide 29 mmol/L (22-30); Chloride 95 mmol/L (98-107); Estimated Glomerular Filt Rate > 60; Glucose 175 mg/dL (65-110); Osmolality Calculated 283 mOsm/kg (285-295); Potassium 4.5 mmol/L (3.4-5.0); Sodium 135 mmol/L (137-145); Total Protein 6.2 g/dL (6.3-8.2)
== END 2025-01-24 09:36 | disposition home or self-care (01) ==
LOC: CHSLAB 09:36
PROVIDERS: PCP Nurse Practitioner Family; Visit Provider Nurse Practitioner Family
DX: K86.89 Other specified diseases of pancreas (principal); E61.1 Iron deficiency
CPT/HCPCS: 36415; 80053; 85025; 85055

== ENCOUNTER 2025-01-28 14:18 | Outpatient (CLI) | payer BC, SELFPAY ==
--- OUTSIDE RECORDS SUMMARY | 2025-01-27 09:34 | XMS_ITS | Encounter Summary ---
Author Organization [facility] Address [address] [place] [address] Care Team Providers Care Sheet Sorter Name Role Phone Heather Willoughby Primary Care Provider [phone] Reason for Referral * (Routine) - Authorized Specialty Diagnoses / Procedures Referred By Zakiya miller Referred To Contact Procedures Follow up with provider Redd Victoria MD [address] [facility] FIRST LEVEL [place] [address] Phone: tel: fax: Referral ID Status Reason Start Date Expiration Date V isits Requested Visits Authorized [id number] Authorized 01/27/2025 01/27/2026 1 1 Reason for Visit * Radiology Services (Routine) - Closed Specialty Diagnoses / Procedures Referred By Zakiya miller Referred To Contact Interventional Radiology Diagnoses Liver masses Procedures CT LIVER BIOPSY([id number]) [facility] [address] [place] [address] Phone: tel: fax: [facility] [address] [place] [address] Phone: tel: fax: Referral ID Status Reason Start Date Expiration Date Visits Re quested Visits Authorized [id number] Closed 01/27/2025 01/27/2026 1 1 Encounter Details Date Type Department Care Team (Latest Contact Info) Description 01/27/2025 9:34 AM CDT - 01/27/2025 3:54 PM CDT Hospital Encounter [facility] [address] [place] [address] Heather Willoughby PA [address] [place] [address] Unknown, Provider Interven Radiology Discharge Disposition: Home or Self Care Social History Tobacco Use Types Packs/Day Years Used Date Smoking Tobacco: Former Cigarettes 1 20 Smokeless Tobacco: Never Tobacco Cessation:Counseling Given: Not Answered Alcohol Use Standard Drinks/Week Comments Not Currently 0 (1 standard drink = 0.6 oz pur e alcohol) 0-1 a year AUDIT-C Answer Date Recorded Q1: How often do you have a drink containing alcohol? Never 01/27/2025 Q2: How many drinks containi ng alcohol do you have on a typical day when you are drinking? Patient does not drink Q3: How often do you have si x or more drinks on one occasion? Never 01/27/2025 Overall Financial Resource Strain (CARDIA) Answe r Date Recorded How hard is it for you to pa y for the very basics like food, housing, medical care, and heating? Not hard at all 01/12/2025 [facility] Occupat ional Health - Occupational Stress [...] any time in the past 12 m [facility], were you homeless or living in a skilled nursing (including now)? No 01/12/2025 Sex and Gender Information Value Date Recorded Sex Assigned at Not on file Legal Sex Male 12:45 AM CDT Gender Identity Not on file Sexual Orientation Not on file documented as of this encounter Last Filed Vital Signs Vital Sign Reading Time Taken Comments Blood Pressure 110/66 01/27/2025 3:30 PM CDT Pulse 88 01/27/2025 3:30 PM CDT Temperature 36.4 C (97.6 F) 01/27/2025 12:40 PM CDT Respiratory Rate 14 01/27/2025 3:30 PM CDT Oxygen Saturation 93% 01/27/2025 3:30 PM CDT Inhaled Oxygen Concentration 21% 01/27/2025 1 :00 PM CDT Weight 63.5 kg (140 lb) 01/27/2025 10:05 AM CDT Height 167.6 cm (5' 6) 01/27/2025 10:05 AM CDT Body Mass Index 22.6 01/27/2025 10:05 AM CDT documented in this encounter Functional Status * Question Answer Date of Assessment Author Q1: How often do you have a drink containing alcohol? Never 01/27/2025 10:07 AM CDT Mirhta Gandhi RN Q2: How many drinks containing alcohol do you have on a typical day when you are drinking? Patient does not drink 01/27/2025 10:07 AM CDT Mirtha Gandhi RN Q3: How often do you have six or more drinks on one occasion? Never 01/27/2025 10:07 AM CDT Mirtha Gandhi RN * Audit-C Score Answer Date of Assessment Author 0 01/27/2025 10:07 AM CDT Mirtha Gandhi RN * Is person deaf or have serious hearing difficulty? Answer Date of Assessment Author No 01/27/2025 1:25 PM CDT Mirtha Gandhi RN * Is person blind or have serious difficulty seeing? Answer Date of Assessment Author No 01/27/2025 1:25 PM CDT Mirtha Gandhi RN * Does person have serious difficulty walking/climbing stairs? Answer Date of Assessment Author Yes 01/27/2025 1:25 PM [place] Mirtha Gandhi RN * Does person have difficulty dressing/bathing? Answer Date of Assessment Author Yes 01/27/2025 1:25 PM [place] Mirtha Gandhi RN * Does person have difficulty doing errands alone? Answer Date of Assessment Author Yes 01/27/2025 1:25 PM Mirtha Gatica RN documented as of this encounter Mental Status * Does person have difficulty concentrating/remembering/making decisions? Answer Entry Date Author No 01/27/2025 1:25 PM Mirtha Gatica RN documented in this encounter Medications at Time of Discharge ALPRAZolam (Xanax) 0.5 MG tablet THREE TIMES A DAY as needed for anxiety 01/15/2025 cyclobenzaprine (Flexeril) 5 MG tablet THREE TIMES A DAY as needed for muscle spasm 12/27/2024 ferrous sulfate EC (Ferrous Sulfate) 324 (65 Fe) MG tablet Take 1 (one) tablet by mouth once daily 12/27/2024 folic acid (Folvite) 1 MG tablet Take 1 (one) tablet by mouth once daily 90 tablet 01/13/2025 4:27 PM CDT 01/13/2025 omeprazole (PriLOSEC) 20 MG capsule Take 1 (one) capsule by mouth once daily 12/27/2024 oxyCODONE, immediate release, (Roxicodone) 5 MG tablet Q4H as needed for severe pain (scale score 7-10) 01/21/2025 pantoprazole EC (Protonix) 40 MG tablet Take 1 (one) tablet by mouth once daily 90 tablet 3 01/13/2025 4:27 PM CDT 01/14/2025 polyethylene glycol 3350 (Miralax) 17 GM/SCOOP powder Take 17 (seventeen) g by mouth once daily 238 g 01/14/2025 sennosides (Senokot) 8.6 MG tablet DAILY 01/15/2025 sodium chloride 1 GM tablet Take 1 (one) tablet by mouth 2 times daily FOR 3 DAYS documented as of this encounter Progress Notes * Noa Hernandez RN - 01/27/2025 12:33 PM CDT Interventional Radiology Nursing - End Procedure Note Sedation: Versed: 3 mg, Fentanyl: 150 mcg Sedation start time: 1211 hours Procedure start time: 1222 hours Procedure end time: 1232 hours Additional drugs: None documented in this encounter H&P Notes * Redd Victoria MD - 01/27/2025 11:49 AM CDT Images from the original note were not included. INTERVENTIONAL RADIOLOGY SHORT PRE-PROCEDURE INTERVAL H&P Melecio Lim is a 59 year old male with numerous liver masses and concern for metastatic pancreatic neoplasm here for image-guided liver mass biopsy to further evaluate. IR consult note by Heather Willoughby on 01/12/25 and subsequent discharge summary were reviewed and no significant interval changes are noted. Risks and benefits of the procedure were explained to the patient and informed consent was obtained after answering all questions. Vitals: 01/27/25 1005 01/27/25 1015 01/27/25 1022 BP: 106/68 101/67 Pulse: 88 89 Resp: 18 17 Temp: 98.8 ??F (37.1 ??C) SpO2: 96% 93% Weight: 63.5 kg (140 lb) Height: 1.676 m (5' 6) Recent Labs Component Name 01/13/25 0709 01/12/25 0915 POTASSIUM 4.0 3.7 CO2 BUN 12 7 CREATININE 0.57* 0.55* GLUCOSE 103* 87 CALCIUM 8.5 8.3* ALKPHOS - 117 ALT - 33 AST - 23 EGFR >90 >90 ) Recent Labs Component Name 01/12/25 0914 INR 1.4 Recent Labs Component Name 01/12/25 0914 PT 16.6* No results for input(s): PTT in the last 31831 hours. Recent Labs Component Name 01/13/25 0707 01/12/25 0914 WBC 8.7 7.7 RBC 3.65* 3.49* HGB 9.1* 8.9* HCT 28.6* 28.0* MCV 78.4* 80.2 MCHC 31.8 31.8 RDWCV 13.6 13.7 PLTCOUNT 475* 445* NEUTPCT - 73.9 LYMPHPCT - 9.6* LYMPHABS - 0.74* BASOABS - 0.04 01/13/2025 CT A/P Plt 475, INR 1.4 Preanesthesia check list: Sedation Plan: moderate ASA Status 3 (A patient with severe systemic disease) PO status: NPO since at least 8 hours Mallampatti: 2 Patient airway and condition has been evaluated immediately prior to sedation and/or analgesia: Yes Consent obtained: Yes from the patient Plan: Image-guided liver mass biopsy with possible moderate sedation. Redd Victoria MD Vascular & Interventional Radiology 01/27/2025 11:49 AM documented in this encounter OR Notes * Brief Op Note - Redd Victoria MD - 01/27/2025 11:30 AM CDT Images from the original note were not included. Interventional Radiology Post-Procedure Note Date: 01/27/2025 Time: 12:47 PM Radiologist: ANNE Acosta attending Measuring Machine Tender: None Pre-Procedure diagnosis: Liver masses Post-Procedure diagnosis: Same Technical procedure performed: Limited US of the abdomen US-guided biopsy of right hepatic lobe hypoechoic mass Post-biopsy limited US of the abdomen Anesthesia: Local and IV Sedation Sedation administered: 3 mg Versed IV, 150 micrograms Fentanyl IV. Other medication administered: None Status: Stable Drain or Pack: None Complications: None Estimated blood loss: Negligible Specimen(s) removed: 3 well formed 18G x 2cm core samples of liver mass in formalin Findings, Recommendation and Follow-up: Limited US of the abdomen shows multiple hypoechoic masses corresponding to abnormal liver masses seen on prior CT/MR imaging. Suitable lesion was chosen for sampling, entry site marked and cleaned/prepped. Successful image-guided percutaneous biopsy of peripheral aspect of hypoechoic mass. Three well-formed 18G x 2cm core samples submitted to pathology in formalin. After allowing autologous blood clot formation of biopsy tract, coaxial removed and bandage applied. Post-biopsy imaging showed no perihepatic fluid or other acute findings. Bedrest x 3 hours recommended. Path pending. Periprocedural care instructions discussed with patient & family, questions elicited & answered. See full operative note along with the film interpretation in PACS. documented in this encounter Plan of Treatment Pending Results Name Type Priority Associated Diagnoses Date /Time PATHOLOGY TISSUE Pathology Cytology Routine Liver masses 01/27/2025 12:30 PM CDT Scheduled Orders Name Type Priority Associated Diagnoses Orde r Schedule PATHOLOGY TISSUE Pathology Cytology Routine Liver masses 1 Occurrences starting 01/27/2025 until 01/27/2025, 1 completed documented as of this encounter Procedures Procedure Name Priority Date/Time Associated Diagnosis Comments CT LIVER BIOPSY Routine 01/27/2025 12:38 PM CDT Liver masses documented in this encounter Results * CT LIVER BIOPSY([id number] & [id number]) (01/27/2025 12:38 PM CDT) Anatomical Region Laterality Modality Abdomen Computed Tomogra phy 01/27/2025 1:34 PM CDT Impressions 01/27/2025 4:52 PM CDT Impression: Successful ultrasound-guided core biopsy of hypoechoic liver mass, as described above. Note that the pathology report is pending at the time of this dictation. I, Dr. Redd Victoria, was present for and performed/supervised the entire procedure. Moderate sedation on this adult patient was ordered by me, administered intravenously in my presence, and monitored by the procedure nurse as an independent trained observer who was present throughout the procedure. The following parameters were monitored: oxygen saturation, heart rate, blood pressure, and response to care. Intra-service sedation start time was 1211 and end time was 1232 during which I was present. Total physician intra-service sedation time was 21 minutes. For details on pre-moderate sedation and post-moderate sedation patient evaluation, please review the evaluation forms in [facility]. For details on monitored clinical parameters during the intra-service sedation time, please review the procedure nurse documentation in [facility]. > Interpreting Provider: Redd Victoria MD on 01/27/2025 4:52 PM Narrative 01/27/2025 4:52 PM CDT PROCEDURE: CT LIVER BIOPSY DATE/TIME OF EXAM: 01/27/2025 12:39 PM CLINICAL INFORMATION: None relevant/not provided if blank. Indication: R16.0: Liver masses History: 59-year-old male with pancreatic mass and numerous liver lesions concerning for metastatic disease, referred to vascular and interventional radiology for assistance with image checkering machine operator guided biopsy of suitable lesion to guide management. Operators: 1.Dr. Redd Victoria, Attending Physician Anesthesia: 1.Local anesthesia - 10 mL of 1% lidocaine 2.Intravenous conscious sedation - Versed 3 mg and Fentanyl 150 mcg Procedure: 1.Limited US of the abdomen 2.US-guided biopsy of right hepatic lobe hypoechoic mass 3.Post-biopsy limited US of the abdomen Start time: 1222 End time: 1232 Sedation initiated time: 1211 Procedure in detail: The procedure, risk, and possible complications were explained to the patient in detail, and informed consent was obtained. The patient was placed in a supine position on the CT table and a limited multiplanar ultrasound evaluation of the abdomen was performed, demonstrating multiple hypoechoic lesions corresponding to known liver lesions on prior CT from 01/13/2025. Suitable target liver lesion was chosen and entry site marked on the skin with indelible ink. The patient received intravenous Versed and Fentanyl for conscious sedation. A qualified radiology nurse monitored the patient s vital signs throughout the procedure. The marked site and skin around the region of interest was prepped and draped in sterile fashion. Local anesthesia was provided with 1% Lidocaine. A 17 gauge coaxial needle system was advanced in stages under ultrasound guidance towards the peripheral aspect of the hypoechoic lesion. The needle entry was documented. With the needle tip at the edge of the lesion, 3 well-formed 2 cm core samples were acquired with a 18 gauge biopsy gun. The samples were sent to the pathology service in formalin. After allowing autologous blood clot formation in the biopsy tract, coaxial needle was removed. Final post-biopsy imaging did not show any immediate complications such as hemorrhage. The patient tolerated the procedure well and was transferred to the holding area in stable condition. Procedure Note Redd Victoria MD - 01/27/2025 PROCEDURE: CT LIVER BIOPSY DATE/TIME OF EXAM: 01/27/2025 12:39 PM CLINICAL INFORMATION: None relevant/not provided if blank. Indication: R16.0: Liver masses History: 59-year-old male with pancreatic mass and numerous liverlesions concerning for metastatic disease, referred to vascular andinterventional radiology for assistance with image checkering machine operator guided biopsy of suitable lesion to guide management. Operators: 1.Dr. Redd Victoria, Attending Physician Anesthesia: 1.Local anesthesia - 10 mL of 1% lidocaine 2.Intravenous conscious sedation - Versed 3 mg and Fentanyl 150 mcg Procedure: 1.Limited US of the abdomen 2.US-guided biopsy of right hepatic lobe hypoechoic mass 3.Post-biopsy limited US of the abdomen Start time: 1222 End time: 1232 Sedation initiated time: 1211 Procedure in detail: The procedure, risk, and possible complications were explained to the patient in detail, and informed consent was obtained. The patient was placed in a supine position on the CT table and a limited multiplanar ultrasound evaluation of the abdomen was performed, demonstratingmultiple hypoechoic lesions corresponding to known liver lesions on prior CT from 01/13/2025. Suitable target liver lesion was chosen and entry site markedon the skin with indelible ink. The patient received intravenous Versed and Fentanyl for conscious sedation. A qualified radiology nurse monitored the patient s vital signs throughout the procedure. The marked site and skin around the region of interest was prepped and draped in sterile fashion. Local anesthesia was provided with 1%Lidocaine. A 17 gauge coaxial needle system was advanced in stages under ultrasound guidance towards the peripheral aspect of the hypoechoic lesion. Theneedle entry was documented. With the needle tip at the edge of the lesion, 3 well-formed 2 cm core samples were acquired with a 18 gauge biopsy gun.The samples were sent to the pathology service in formalin. After allowing autologous blood clot formation in the biopsy tract, coaxial needle was removed. Final post-biopsy imaging did not show any immediate complications suchas hemorrhage. The patient tolerated the procedure well and was transferredto the holding area in stable condition. Impression: Successful ultrasound-guided core biopsy of hypoechoic liver mass, as described above. Note that the pathology report is pending atthe time of this dictation. I, Dr. Redd Victoria, was present for and performed/supervised the entire procedure. Moderate sedation on this adult patient was ordered by me, administered intravenously in my presence, and [facility] as an independent trained observer who was present throughout the procedure. The following parameters were monitored: oxygen saturation, heart rate, blood pressure, and response to care. Intra-service sedation start time was 1211 and end time was 1232 during which I was present.Total physician intra-service sedation time was 21 minutes. For details on pre-moderate sedation and post-moderate sedation patient evaluation,please review the evaluation forms in [facility]. For details on monitored clinical parameters during the intra-service sedation time, please review the procedure nurse documentation in [facility]. > Interpreting Provider: Redd Victoria MD on 01/27/2025 4:[address] ORDERABLES Final Result documented in this encounter Visit Diagnoses Diagnosis Liver masses Unspecified disorder of liver documented in this encounter Administered Medications Inactive Administered Medications - up to 3 most recent administrations Medication Order MAR Action Action Date Dose Rate Site 0.9% NaCl infusion Intravenous, CONTINUOUS PRN, Starting on Mon01/27/25 at 1214, Until Mon01/27/25 at 1214, Intra-op $ New Bag/Syringe 01/27/2025 12:14 PM CDT 500 mL fentaNYL (PF) (Sublimaze) injection ONCE PRN, Starting on Mon01/27/25 at 1211, Until Mon01/27/25 at 1222, Intra-op $ Given 01/27/2025 12:22 PM CDT 50 mcg $ Given 01/27/2025 12:16 PM CDT 50 mcg $ Given 01/27/2025 12:11 PM CDT 50 mcg lidocaine (Xylocaine) 1 % injection Subcutaneous, ONCE PRN, Starting on Mon01/27/25 at 1213, Until Mon01/27/25 at 1213, Intra-op $ Given 01/27/2025 12:13 PM CDT 10 mL See Comments midazolam (Versed) injection Intravenous, ONCE PRN, Starting on Mon01/27/25 at 1211, Until Mon01/27/25 at 1222, Intra-op $ Given 01/27/2025 12:22 PM CDT 1 mg $ Given 01/27/2025 12:16 PM CDT 1 mg $ Given 01/27/2025 12:11 PM CDT 1 mg documented in this encounter Active and Recently Administered Medications Times are shown in CDT. PRN Medication Order 01/25/2025 01/26/2025 01/27/2025 0.9% NaCl infusion (COMPLETED) Intravenous, CONTINUOUS PRN, Starting on Mon01/27/25 at 1214, Until Mon01/27/25 at 1214, Intra-op 1214 ($ New Bag/Syri nge - Provider: Noa Hernandez, PATRICK - Comment: gravitybag for medication administration) fentaNYL (PF) (Sublimaze) injection (COMPLETED) ONCE PRN, Starting on Mon01/27/25 at 1211, Until Mon01/27/25 at 1222, Intra-op 1211 ($ Given - Prov ider: Noa Hernandez RN)1216 ($ Given - Provider: Noa Hernandez, RN)1222 ($ Given - Provider: Noa Hernandez RN) lidocaine (Xylocaine) 1 % injection (COMPLETED) Subcutaneous, ONCE PRN, Starting on Mon01/27/25 at 1213, Until Mon01/27/25 at 1213, Intra-op 1213 ($ Given - Prov ider: Redd Victoria MD - Comment: to the table) midazolam (Versed) injection (COMPLETED) Intravenous, ONCE PRN, Starting on Mon01/27/25 at 1211, Until Mon01/27/25 at 1222, Intra-op 1211 ($ Given - Prov ider: Noa Hernandez RN)1216 ($ Given - Provider: Noa Hernandez RN)1222 ($ Given - Provider: Noa Hernandez, PATRICK) documented in this encounter Care Teams Sheet Sorter Relationship Specialty Start Date End Date Heather Willoughby PA [address] [place] [id number] PCP - General Physician Measuring Machine Tender 01/27/25 documented as of this encounter
--- OUTSIDE RECORDS SUMMARY | 2025-01-28 14:21 | XMS_ITS | Clinical Summary ---
Author Organization [facility] [employer] Address [address] [place] [address] Care Team Providers Care Hospice Aide Name Role Phone Heather Willoughby Primary Care Provider [phone] Source Comments [facility] [employer],non-owned Affiliates and Associated Physician Practices is amultiple site organization consisting of ambulatory clinics and hospital sitesin [place], [place], [place] and [place]. This disclosure is being madepursuant to the Care Everywhere program and may not contain all information available regarding this patient. Last updated 18.[facility] Allergies No known active allergies Medications * Be aware that medications may not be up to date on this document. Alwaysverify current medications with the patient. polyethylene glycol 3350 (Miralax) 17 GM/SCOOP powder Take 17 (seventeen) g by mouth once daily 238 g 01/14/2025 Active folic acid (Folvite) 1 MG tablet Take 1 (one) tablet by mouth once daily 90 tablet 01/13/2025 4:27 PM CDT 01/13/2025 Active pantoprazole EC (Protonix) 40 MG tablet Take 1 (one) tablet by mouth once daily 90 tablet 3 01/13/2025 4:27 PM CDT 01/14/2025 Active ALPRAZolam (Xanax) 0.5 MG tablet THREE TIMES A DAY as needed for anxiety 01/15/2025 Active cyclobenzaprine (Flexeril) 5 MG tablet THREE TIMES A DAY as needed for muscle spasm 12/27/2024 Active ferrous sulfate EC (Ferrous Sulfate) 324 (65 Fe) MG tablet Take 1 (one) tablet by mouth once daily 12/27/2024 Active omeprazole (PriLOSEC) 20 MG capsule Take 1 (one) capsule by mouth once daily 12/27/2024 Active oxyCODONE, immediate release, (Roxicodone) 5 MG tablet Q4H as needed for severe pain (scale score 7-10) 01/21/2025 Active sennosides (Senokot) 8.6 MG tablet DAILY 01/15/2025 Active sodium chloride 1 GM tablet Take 1 (one) tablet by mouth 2 times daily FOR 3 DAYS Active oxyCODONE, immediate release, (Roxicodone) 5 MG tabletIndicatio ns:Pancreatic mass (HCC) Take 1 (one) tablet by mouth every 4 hours as needed 12 tablet 01/13/2025 4:27 PM CDT 01/13/2025 01/19/20 25 sennosides (Senokot) 8.6 MG tablet Take 1 (one) tablet by mouth once daily for 10 days 10 tablet 01/13/2025 4:27 PM CDT 01/14/2025 01/25/20 25 Active Problems Problem Noted Date Diagnosed Date [...] Assessment & Plan (01/13/2025 4:01 PM CDT): Palmer UA, will CTM Assessment & Plan (01/12/2025 4:52 PM CDT): Palmer UA without signs of UTI - CTM [...] Encounters Date Type Department Care Team Description 01/27/2025 9:34 AM CDT - 01/27/2025 3:54 PM CDT Hospital Encounter [facility] JESSICA OP [address] [place] [phone] Heather Willoughby PA Unknown, Provider Interven Radiology Discharge Disposition: Home or Self Care 01/24/2025 Telephone [facility] IVR [address] [place] [phone] Radha Sebastian, RN Appointment 01/15/2025 Telephone [facility] - GI [address] [facility] [place] [phone] Giovanna Aquino, RN Appointment 01/15/2025 Telephone Transitional Care at [address] [phone] Laura Infante, countersinker 01/15/2025 Telephone Transitional Care at [address] [phone] Laura Infante, RN 01/14/2025 Telephone Transitional Care at [address] [phone] Laura Infante, countersinker 01/14/2025 Orders Only [facility] - Hematology/Oncolog y [address] [place] [address] Rashawn Khan DO 01/12/2025 6:25 AM CDT - 01/13/2025 7:23 PM CDT Hospital Encounter [facility] 6S ACUTE [address] [place] [phone] Ana Olivarez MD Bastin, Taylor J, MD Bhalla, Kishley, MD Gastroenterology Discharge Disposition: Home or Self Care 01/12/2025 Travel 01/11/2025 Telephone [facility] INTERNAL MED [address] [place] [phone] Ana Olivarez MD Hospital Admission from Last [...] and heating? Not hard at all 01/12/2025 [facility] [place] [facility] Occupat ional Health - Occupational Stress [...] any time in the past [address] [facility], were you homeless or living in a custodial (including now)? No 01/12/2025 Sex and Gender [...] Mass Index 22.6 01/27/2025 10:05 AM CDT Plan of Treatment Health Maintenance Due Date Last Done Comments [...] VACCINE (1 of 2) 08/08/2017 COVID-19 VACCINE ( - 2023-2 5 season) 2024 DEPRESSION SCREENING [...] Routine 01/27/2025 12:38 PM CDT Liver masses CT PELVIS W CONTRAST PENDING DISCHARGE 01/13/2025 5:24 PM CDT Pancreatic mass (HCC) CT CHEST W CONTRAST PENDING DISCHARGE 01/13/2025 5:24 PM CDT Pancreatic mass (HCC) CT PANCREAS WWO CONTRAST PENDING DISCHARGE 01/13/2025 5:24 PM CDT Pancreatic mass (HCC) BLOOD TYPE VERIFICATION Routine 01/13/2025 9:09 AM CDT OT EVAL AND TREAT Routine 01/13/2025 7: 11 AM CDT RENAL FUNCTION PANEL Routine 01/13/2025 [...] from Last 3 Months Results * CT LIVER BIOPSY(64056 & 51787) (01/27/2025 12:38 PM CDT) Anatomical Region Laterality [...] evaluation, please review the evaluation forms in [facility]. For details on monitored clinical parameters during the intra-service sedation time, please review the procedure nurse documentation in [facility]. > Interpreting Provider: Redd Victoria MD on 01/27/2025 4:52 PM Narrative 01/27/2025 4:52 PM CDT PROCEDURE: CT LIVER BIOPSY DATE/TIME OF EXAM: 01/27/2025 12:39 PM CLINICAL INFORMATION: None relevant/not provided if blank. Indication: R16.0: Liver masses History: 59-year-old male with pancreatic mass and numerous liver lesions concerning for metastatic disease, referred to vascular and interventional radiology for assistance with image seam checker guided biopsy of suitable lesion to guide [...] vascular andinterventional radiology for assistance with image seam checker guided biopsy of suitable lesion to guide [...] is pending atthe time of this dictation. Marquis, Dr. Redd Victoria, was present for and performed/supervised the entire procedure. Moderate sedation on this adult patient was ordered by me, administered intravenously in my presence, and monitored [facility] as an independent trained observer who [...] patient evaluation,please review the evaluation forms in [facility]. For details on monitored clinical parameters during the intra-service sedation time, please review the procedure nurse documentation in [facility]. > Interpreting Provider: Redd Victoria MD on 01/27/2025 4:[address] ORDERABLES Final Result * CT Pelvis W Contrast (01/13/2025 5:24 [...] by Barbara Kan MD > Dictated by District Sales Representative I, Jasvir Michelle MD have personally reviewed and interpreted this examination/study. > Interpreting Provider: Jasvir Michelle MD on 01/14/2025 7:17 AM Narrative 01/14/2025 7:17 AM CDT PROCEDURE: CT PELVIS W CONTRAST, CT CHEST W CONTRAST, CT PANCREAS WWO CONTRAST, DATE/TIME OF EXAM: 01/13/2025 5:24 PM, LOCATION [facility] INDICATION: K86.89: Pancreatic mass (HCC) ADDITIONAL CLINICAL INFORMATION: Ordering Provider Reason For Exam: mets (accession [id number]), mets (accession [id number]), concern for metastatic malignancy with pancreatic primary (accession [id number]) Technologist Note: Additional: COMPARISON: None. TECHNIQUE: 1.CT [...] DATE/TIME OF EXAM: 01/13/2025 5:24 PM, LOCATION [facility] INDICATION: K86.89: Pancreatic mass (HCC) ADDITIONAL CLINICAL INFORMATION: Ordering Provider Reason For Exam: mets (accession [id number]), mets (accession [id number]), concern for metastatic malignancy with pancreatic primary (accession [id number]) Technologist Note: Additional: COMPARISON: None. TECHNIQUE: 1.CT [...] (image 76 series 5 and image 47 [email or web address]). No associated pancreatic or biliary ductal obstruction [...] by Barbara Kan MD > Dictated by District Sales Representative I, Jasvir Michelle MD have personally reviewed [...] by Barbara Kan MD > Dictated by District Sales Representative I, Jasvir Michelle MD have personally reviewed and interpreted this examination/study. > Interpreting Provider: Jasvir Michelle MD on 01/14/2025 7:17 AM Narrative 01/14/2025 7:17 AM CDT PROCEDURE: CT PELVIS W CONTRAST, CT CHEST W CONTRAST, CT PANCREAS WWO CONTRAST, DATE/TIME OF EXAM: 01/13/2025 5:24 PM, LOCATION [facility] INDICATION: K86.89: Pancreatic mass (HCC) ADDITIONAL CLINICAL INFORMATION: Ordering Provider Reason For Exam: mets (accession [id number]), mets (accession [id number]), concern for metastatic malignancy with pancreatic primary (accession [id number]) Technologist Note: Additional: COMPARISON: None. TECHNIQUE: 1.CT [...] DATE/TIME OF EXAM: 01/13/2025 5:24 PM, LOCATION [facility] INDICATION: K86.89: Pancreatic mass (HCC) ADDITIONAL CLINICAL INFORMATION: Ordering Provider Reason For Exam: mets (accession [id number]), mets (accession [id number]), concern for metastatic malignancy with pancreatic primary (accession [id number]) Technologist Note: Additional: COMPARISON: None. TECHNIQUE: 1.CT [...] (image 76 series 5 and image 47 [email or web address]). No associated pancreatic or biliary ductal obstruction [...] by Barbara Kan MD > Dictated by District Sales Representative I, Jasvir Michelle MD have personally reviewed and interpreted this examination/study. > Interpreting Provider: Jasvir Michelle MD on 57:17 AM us Chikis Gao MD CT ORDERABLES [...] by Barbara Kan MD > Dictated by District Sales Representative I, Jasvir Michelle MD have personally reviewed and interpreted this examination/study. > Interpreting Provider: Jasvir Michelle MD on 01/14/2025 7:17 AM Narrative 01/14/2025 7:17 AM CDT PROCEDURE: CT PELVIS W CONTRAST, CT CHEST W CONTRAST, CT PANCREAS WWO CONTRAST, DATE/TIME OF EXAM: 01/13/2025 5:24 PM, LOCATION [facility] INDICATION: K86.89: Pancreatic mass (HCC) ADDITIONAL CLINICAL INFORMATION: Ordering Provider Reason For Exam: mets (accession [id number]), mets (accession [id number]), concern for metastatic malignancy with pancreatic primary (accession [id number]) Technologist Note: Additional: COMPARISON: None. TECHNIQUE: 1.CT [...] DATE/TIME OF EXAM: 01/13/2025 5:24 PM, LOCATION [facility] INDICATION: K86.89: Pancreatic mass (HCC) ADDITIONAL CLINICAL INFORMATION: Ordering Provider Reason For Exam: mets (accession [id number]), mets (accession [id number]), concern for metastatic malignancy with pancreatic primary (accession [id number]) Technologist Note: Additional: COMPARISON: None. TECHNIQUE: 1.CT [...] by Barbara Kan MD > Dictated by District Sales Representative I, Jasvir Michelle MD have personally reviewed and interpreted this examination/study. > Interpreting Provider: Jasvir Michelle MD on 57:17 AM [address]is Gao MD CT ORDERABLES Final Result * BLOOD TYPE VERIFICATION (01/13/2025 9:09 AM CDT) ABO Rh A POS 01/13/2025 11:07 AM CDT [facility] BLOOD BANK LAB Blood Bank BLOOD SPECIMEN / Unknown Lab Venipuncture / Unknown 01/13/2025 9:09 AM CDT 01/13/2025 9:36 AM CDT Chikis Gao MD LAB - BLOOD BANK ORDERABLES Fi nal Result [facility] BLOOD BANK LAB [address] [place] [address], [facility] [phone] * (ABNORMAL) RENAL FUNCTION PANEL (01/13/2025 7:09 AM CDT) [facility] BUN 12 7 - 26 mg/dL 01/13/2025 8:28 AM [facility] Creatinine 0.57(L) 0.71 - 1.16 mg/dL 01/13/2025 8:28 AM [facility] Sodium 135(L) 136 - 145 mmol/L 01/13/2025 8:28 AM [facility] Potassium 4.0 3.5 - 4.5 mmol/L 01/13/2025 8:28 AM [facility] Chloride 103 98 - 107 mmol/L 01/13/2025 8:28 AM [facility] CO2 25 22 - 29 mmol/L 01/13/2025 8:28 AM [facility] Glucose 103(H) 70 - 99 mg/dL 01/13/2025 8:28 AM [facility] Albumin 2.2(L) 3.4 - 5.0 g/dL 01/13/2025 8:28 AM [facility] Calcium 8.5 8.4 - 10.2 mg/dL 01/13/2025 8:28 AM [facility] Phosphorus 3.1 2.8 - 5.1 mg/dL 01/13/2025 8:28 AM [facility] Anion Gap 7 6 - 16 01/13/2025 8:28 AM [facility] BUN/Creatinine Ratio 21 7 - 23 01/13/2025 8:28 AM [facility] Osmolality Calculated 280 275 - 295 mOsm/kg 01/13/2025 8:28 AM [facility] eGFR by CKD-EPI >90 >=90 mL/min/1.7 3 m2 01/13/2025 8:28 AM [facility] Comment:Estimated Glomerular Filtration Rate (eGFR) calculated using the CKD-EPI Creatinine Equation (2020), per the National Kidney Foundation and [place] [employer] recommendations. Blood BLOOD SPECIMEN / Unknown Lab Venipuncture / Unknown 01/13/2025 7:09 AM CDT 01/13/2025 7:42 AM T us Diana Franco MD LAB - CHEMISTRY ORDERABLES Fi nal Result Performing Organization Address City/[facility]/ZIP Co de Phone Number [address] [address], [facility] [phone] * (ABNORMAL) FOLATE (01/13/2025 7:09 AM CDT) Folate 5.9(L) 7.0 - 31.4 ng/mL 01/13/2025 9:00 AM CDT [facility] Blood BLOOD SPECIMEN / Unknown Lab Venipuncture / Unknown 01/13/2025 7:09 AM CDT 01/13/2025 7:42 AM CDT us Diana Franco MD LAB - CHEMISTRY ORDERABLES Fi nal Result Performing Organization Address [facility] Co de Phone Number [address] [address], [facility] [phone] * (ABNORMAL) VITAMIN B12 (01/13/2025 7:09 AM CDT) Pathologist [facility] Vitamin B12 1,094(H) 213 - 816 pg/mL 01/13/2025 9:00 AM CDT [facility] Blood BLOOD SPECIMEN / Unknown Lab Venipuncture / Unknown 01/13/2025 7:09 AM CDT 01/13/2025 7:42 AM CDT us Diana Franco MD LAB - CHEMISTRY ORDERABLES Fi nal Result Performing Organization Address [facility] Co de Phone Number [address] [address], [place] [phone] * CANCER ANTIGEN (CA) 19-9 (01/13/2025 7:07 AM CDT) CA 19-9 3 <=35 U/mL 01/14/2025 4:33 PM CDT ORShahab P. Tabatabai, Broker ([facility]) Comment: INTERPRETIVE INFORMATION: Cancer Antigen-GI (CA [...] or absence of malignant disease. Performed By: [facility] U-NOTE [address] [place] [address] Ticker Wirer: Russell Roblero MD, PhD CLIA Number: [id number] Blood BLOOD SPECIMEN / Unknown Lab Venipuncture / Unknown 01/13/2025 7:07 AM CDT 01/13/2025 7:30 AM CDT Diana Franco MD LAB - CHEMISTRY ORDERABLES Fi nal Result Performing Organization Address City/[facility]/ZIP Co de Phone Number [facility] ([facility]) [address] [place] [address] * TYPE + SCREEN PANEL (01/13/2025 7:07 AM CDT) Pathologist [facility] Antibody Screen NEG 9:27 AM CDT [facility] BLOOD BANK LAB ABO Rh A POS 01/13/2025 9:27 AM CDT [facility] BLOOD BANK LAB Blood Bank BLOOD SPECIMEN / Unknown Lab Venipuncture / Unknown 01/13/2025 7:07 AM CDT 01/13/2025 8:12 AM CDT us Diana Franco MD LAB - BLOOD BANK ORDERABLES F inal Result Performing Organization Address City/[facility]/ZIP Co de Phone Number [facility] BLOOD BANK LAB [address] [place] [address], [facility] [phone] * (ABNORMAL) CBC W/O DIFFERENTIAL (01/13/2025 7:07 AM CDT) Pathologist [facility] WBC 8.7 4.0 - 10.7 x10E9/L 01/13/2025 7:45 AM CDT [facility]ORATORY [facility] RBC Count 3.65(L) 4.30 - 5.80 x10E12/L 01/13/2025 7:45 AM CDT [facility] Hemoglobin 9.1(L) 13.3 - 17.5 g/dL 01/13/2025 7:45 AM [facility] Hematocrit 28.6(L) 38.7 - 51.1 % 01/13/2025 7:45 AM [facility] MCV 78.4(L) 80.0 - 98.0 fL 01/13/2025 7:45 AM [facility] MCH 24.9(L) 26.7 - 33.6 pg 01/13/2025 7:45 AM [facility] MCHC 31.8 31.7 - 36.3 g/dL 01/13/2025 7:45 AM [facility] RDW-CV 13.6 11.3 - 14.8 % 01/13/2025 7:45 AM [facility] Platelet Count 475(H) 150 - 420 x10E9/L 01/13/2025 7:45 AM [facility] MPV 10.3 7.8 - 11.4 fL 01/13/2025 7:45 AM [facility] Blood BLOOD SPECIMEN / Unknown Lab Venipuncture / Unknown 01/13/2025 7:07 AM CDT 01/13/2025 7:38 AM CDT us Diana Franco MD LAB - HEMATOLOGY ORDERABLES F inal Result [facility] [address] [place] [address], [facility] [phone] * (ABNORMAL) IRON + TRANSFERRIN PANEL (01/13/2025 7:07 AM CDT) Iron 11(L) 50 - 175 ug/dL 01/13/2025 8:19 AM [facility] Transferrin 117(L) 174 - 382 mg/dL 01/13/2025 8:19 AM [facility] Transferrin Saturation % 8(L) 16 - 50 % 01/13/2025 8:19 AM [facility] TIBC Calculated 146(L) 240 - 450 ug/dL 01/13/2025 8:19 AM [facility] Blood BLOOD SPECIMEN / Unknown Lab Venipuncture / Unknown 01/13/2025 7:07 AM CDT 01/13/2025 7:30 AM CDT us Diana Franco MD LAB - CHEMISTRY ORDERABLES Fi nal Result [address] [address], [facility] [phone] * (ABNORMAL) FERRITIN (01/13/2025 7:07 AM CDT) Ferritin 2,200(H) 22 - 275 ng/mL 01/13/2025 9:10 AM T [facility] Comment:Result obtained by hebert hdz. Blood BLOOD SPECIMEN / Unknown Lab Venipuncture / Unknown 01/13/2025 7:07 AM CDT 01/13/2025 7:30 AM CDT us Diana Franco MD LAB - CHEMISTRY ORDERABLES Fi nal Result Performing Organization Address City/[facility]/ZIP Co de Phone Number [address] [address], [place] [phone] * URINALYSIS REFLEX TO MICROSCOPIC NO CULTURE (01/12/2025 10:38 AM CDT) Color UA Yellow Yellow, Straw 01/12/2025 11:02 AM T [facility] Clarity UA Clear Clear 01/12/2025 11:02 AM T [facility] Glucose UA Normal Normal 01/12/2025 11:02 AM T [facility] Bilirubin UA Negative Negative 01/12/2025 11:02 AM T [facility] Ketone UA Negative Negative 01/12/2025 11:02 AM [facility] Specific [place] UA 1.006 1.005 - 1.030 01/12/2025 11:02 AM T [facility] Blood UA Negative Negative 01/12/2025 11:02 AM [facility] pH UA 7.0 5.0 - 8.0 01/12/2025 11:02 AM T [facility] Protein UA Negative Negative 01/12/2025 11:02 AM [facility] Urobilinogen UA Normal Normal mg/dL 01/12/2025 11:02 AM [facility] Nitrite UA Negative Negative 01/12/2025 11:02 AM [facility] Leukocyte Esterase UA Negative Negative 01/12/2025 11:02 AM [facility] Urine Microscopy Urine microscopy not indicated 01/12/2025 11:02 AM [facility] Urine URINE SPECIMEN OBTAINED BY CLEAN CATCH PROCEDURE / Unknown Collection / Unknown 01/12/2025 10:38 AM CDT 01/12/2025 10:53 AM T us Diana Franco MD LAB - URINALYSIS ORDERABLES F inal Result [facility] [address] [place] [address], [facility] [phone] * (ABNORMAL) COMPREHENSIVE METABOLIC PANEL (01/12/2025 9:15 AM [facility]) BUN 7 7 - 26 mg/dL 01/12/2025 10:22 AM [facility] Creatinine 0.55(L) 0.71 - 1.16 mg/dL 01/12/2025 10:22 AM [facility] Sodium 136 136 - 145 mmol/L 01/12/2025 10:22 AM [facility] Potassium 3.7 3.5 - 4.5 mmol/L 01/12/2025 10:22 AM [facility] Chloride 106 98 - 107 mmol/L 01/12/2025 10:22 AM [facility] CO2 23 22 - 29 mmol/L 01/12/2025 10:22 AM [facility] Glucose 87 70 - 99 mg/dL 01/12/2025 10:22 AM [facility] Calcium 8.3(L) 8.4 - 10.2 mg/dL 01/12/2025 10:22 AM [facility] Protein Total 6.4 6.0 - 8.3 g/dL 01/12/2025 10:22 AM [facility] Albumin 2.1(L) 3.4 - 5.0 g/dL 01/12/2025 10:22 AM [facility] Bilirubin Total 0.7 0.2 - 1.2 mg/dL 01/12/2025 10:22 AM [facility] Alkaline Phosphatase 117 40 - 150 U/L 01/12/2025 10:22 AM [facility] ALT 33 5 - 55 U/L 01/12/2025 10:22 AM [facility] AST 23 5 - 34 U/L 01/12/2025 10:22 AM [facility] Anion Gap 7 6 - 16 01/12/2025 10:22 AM [facility] BUN/Creatinine Ratio 13 7 - 23 01/12/2025 10:22 AM [facility] Osmolality Calculated 279 275 - 295 mOsm/kg 01/12/2025 10:22 AM [facility] Albumin/Globulin Ratio 0.5(L) 1.1 - 2.3 01/12/2025 10:22 AM [facility] eGFR by CKD-EPI >90 >=90 mL/min/1.7 3 m2 01/12/2025 10:22 AM [facility] Comment:Estimated Glomerular Filtration Rate (eGFR) calculated using the CKD-EPI Creatinine Equation (2020), per the National Kidney Foundation and [place] [employer]ph[employer] recommendations. Blood BLOOD SPECIMEN / Unknown Lab Venipuncture / Unknown 01/12/2025 9:15 AM CDT 01/12/2025 9:54 AM T Ana Olivarez MD LAB - CHEMISTRY ORDERABLES F inal Result [facility] [address] [place] [address], [facility] [phone] * PHOSPHORUS BLOOD (01/12/2025 9:15 AM CDT) Phosphorus 3.1 2.8 - 5.1 mg/dL 01/12/2025 10:22 AM [facility] Blood BLOOD SPECIMEN / Unknown Lab Venipuncture / Unknown 01/12/2025 9:15 AM CDT 01/12/2025 9:54 AM CDT us Ana Olivarez MD LAB - CHEMISTRY ORDERABLES F inal Result Performing Organization Address City/[facility]/ZIP Co de Phone Number [address] [address], [place] [phone] * MAGNESIUM BLOOD (01/12/2025 9:15 AM CDT) Magnesium 1.9 1.6 - 2.6 mg/dL 01/12/2025 10:22 AM CDT [facility] Blood BLOOD SPECIMEN / Unknown Lab Venipuncture / Unknown 01/12/2025 9:15 AM CDT 01/12/2025 9:54 AM CDT us Ana Olivarez MD LAB - CHEMISTRY ORDERABLES F inal Result Performing Organization Address [facility] de Phone Number [address] [address], [place] [phone] * (ABNORMAL) PT-INR (01/12/2025 9:14 AM CDT) PT 16.6(H) 12.1 - 14.8 Seconds 01/12/2025 10:17 AM CDT [facility] INR 1.4 See Comment 01/12/2025 10:17 AM T [facility] Comment:The suggested therap eutic range for standard coumadin (warfarin) therapy is an INR of 2.0-3.0. For high-risk patients (Mechanical Mitral Valve Prosthesis, etc.), the suggested prophylactic therapeutic range is an INR of 2.5-3.5. Blood BLOOD SPECIMEN / Unknown Lab Venipuncture / Unknown 01/12/2025 9:14 AM CDT 01/12/2025 9:54 AM CDT us Ana Olivarez MD LAB - COAGULATION ORDERABLES Final Result Performing Organization Address [facility] Co de Phone Number [address] [place] [address], [facility] [phone] * (ABNORMAL) CBC W AUTO DIFFERENTIAL (01/12/2025 9:14 AM CDT) [facility] WBC 7.7 4.0 - 10.7 x10E9/L 01/12/2025 9:58 AM [facility] RBC Count 3.49(L) 4.30 - 5.80 x10E12/L 01/12/2025 9:58 AM [facility] Hemoglobin 8.9(L) 13.3 - 17.5 g/dL 01/12/2025 9:58 AM [facility] Hematocrit 28.0(L) 38.7 - 51.1 % 01/12/2025 9:58 AM [facility] MCV 80.2 80.0 - 98.0 fL 01/12/2025 9:58 AM [facility] MCH 25.5(L) 26.7 - 33.6 pg 01/12/2025 9:58 AM [facility] MCHC 31.8 31.7 - 36.3 g/dL 01/12/2025 9:58 AM [facility] RDW-CV 13.7 11.3 - 14.8 % 01/12/2025 9:58 AM [facility] Platelet Count 445(H) 150 - 420 x10E9/L 01/12/2025 9:58 AM [facility] MPV 10.2 7.8 - 11.4 fL 01/12/2025 9:58 AM [facility] Neutrophil % 73.9 41.0 - 74.0 % 01/12/2025 9:58 AM [facility] Lymphocyte % 9.6(L) 17.0 - 47.0 % 01/12/2025 9:58 AM [facility] Monocyte % 10.4 3.0 - 11.0 % 01/12/2025 9:58 AM [facility] Eosinophil % 5.1 0.0 - 7.0 % 01/12/2025 9:58 AM [facility] Basophil % 0.5 0.0 - 1.6 % 01/12/2025 9:58 AM T [facility] Immature Granulocytes % 0.5 0.0 - 1.0 % 01/12/2025 9:58 AM [facility] Neutrophil Absolute 5.67 1.60 - 7.50 x10E9/L 01/12/2025 9:58 AM [facility] Lymphocyte Absolute 0.74(L) 1.00 - 4.40 x10E9/L 01/12/2025 9:58 AM T [facility] Monocyte Absolute 0.80 0.15 - 1.00 x10E9/L 01/12/2025 9:58 AM [facility] Eosinophil Absolute 0.39 0.00 - 0.60 x10E9/L 01/12/2025 9:58 AM [facility] Basophil Absolute 0.04 0.00 - 0.13 x10E9/L 01/12/2025 9:58 AM [facility] Blood BLOOD SPECIMEN / Unknown Lab Venipuncture / Unknown 01/12/2025 9:14 AM CDT 01/12/2025 9:54 AM CDT Ana Olivarez MD LAB - HEMATOLOGY ORDERABLES Final Result Performing Organization Address City/State/[facility] Co de Phone Number [facility] [address] [place] [address], [facility] [phone] from Last 3 Months Insurance ANTH Advance Directives * Full Code (Latest Code Status on File) Date Activated Date Inactivated Comments 01/12/2025 7:46 AM 01/13/2025 8:28 PM Care Teams Hospice Aide Relationship Specialty Start Date End Date Heather Willoughby PA [address] [place] [id number] PCP - General Physician Dehydration Unit Operator 01/27/25
--- OUTSIDE RECORDS SUMMARY | 2025-01-28 14:21 | XMS_ITS | Encounter Summary ---
Author Organization [facility] Address [address] [place] [address] Care Team Providers Care Silk Conditioner Name Role Phone Heather Willoughby Primary Care Provider [phone] Encounter Details Date Type Department Care Team (Late st Contact Info) Description 01/15/2025 Telephone Transitional Care at [address] [phone] Laura Infante RN Social History Tobacco [...] and heating? Not hard at all 01/12/2025 [place] [facility] - Occupational Stress [...] time in the past [address] [facility], were you homeless or living in [...] documented in this encounter Plan of Treatment Not on file documented as of this encounter Visit Diagnoses Not on filedocumented in this encounter Care Teams Silk Conditioner Relationship Specialty Start Date End Date Heather Willoughby PA [address] [place] [id number] PCP - General Physician Immigration Lawyer 01/27/25 documented as of this encounter
[2025-01-28 14:38] LABS: Hematocrit 29.2 % (40.0-54.0); Hemoglobin 8.6 g/dL (14.0-18.0); Immature Granulocyte Percent A 0.8 % (0.0-0.0); Immature Platelet Fraction Pct 1.5 % (1.0-7.0); Lymphocytes Absolute Auto 1.30 K/mm3 (1.10-4.50); Mean Corpuscular HGB Conc 29.5 g/dL (32-36); Mean Corpuscular Hemoglobin 23.4 pg (27.0-31.0); Mean Corpuscular Volume 79.3 fL (78.0-102.0); Nucleated Red Blood Cells Absolute Auto 0.00 K/mm3 (0.00-0.00); Nucleated Red Blood Cells Perc 0.0 % (0-0.0); Platelet Count Result 642 K/mm3 (150-420); Red Blood Count 3.68 M/mm3 (4.70-6.10); White Blood Count 11.2 K/mm3 (4.8-10.8)
[2025-01-28 14:53] LABS: Alanine Aminotransferase 54 U/L (6-50); Albumin Level 3.2 g/dL (3.5-5.1); Alkaline Phosphatase 239 U/L (38-126); Anion Gap 10 mmol/L (4-12); Aspartate Amino Transferase 44 U/L (17-59); Bilirubin,Total 1.3 mg/dL (0.2-1.3); Blood Urea Nitrogen 11 mg/dL (9-20); Calcium 8.7 mg/dL (8.4-10.2); Carbon Dioxide 28 mmol/L (22-30); Chloride 95 mmol/L (98-107); Estimated Glomerular Filt Rate > 60; Glucose 110 mg/dL (65-110); Osmolality Calculated 276 mOsm/kg (285-295); Potassium 4.6 mmol/L (3.4-5.0); Sodium 133 mmol/L (137-145); Total Protein 6.7 g/dL (6.3-8.2)
== END 2025-01-28 14:19 | disposition home or self-care (01) ==
LOC: CHSLAB 14:19
PROVIDERS: PCP Nurse Practitioner Family; Visit Provider Nurse Practitioner Family
DX: E87.8 Other disorders of electrolyte and fluid balance, not elsewhere classified (principal); R79.89 Other specified abnormal findings of blood chemistry
CPT/HCPCS: 36415; 80053; 85025; 85055